=== PATIENT | female | born 1990 | race Caucasian/White ===

== ENCOUNTER 2020-08-08 10:26 | Emergency (ER) | payer OTHER, SELFPAY ==
--- NOTE | 2020-08-08 | US_ITS ---
EXAMINATION: OB ULTRASOUND CLINICAL INFORMATION: Abnormal vaginal bleeding COMPARISON: None recent TECHNIQUE: OB ultrasound FINDINGS: Last menstrual period is not known. I am not aware of beta-hCG levels at this time. No intrauterine gestational or yolk sacs are evident. No pole is seen. Right adnexa: Right ovary measures approximately 3.7 x 1.4 x 2.0 cm in size with normal vascular flow. Just adjacent along the medial aspect of the right ovary there is an ovoid structure with cystic central region measuring 1 x 1 x 1.1 cm in size. No increased vascularity/ring of fire is appreciated however with no intrauterine identified there is a small chance this could represent an ectopic and close follow-up is recommended. Left adnexa: Left ovary measures 2.8 x 2.0 x 2.4 cm in size and contains a 1.5 x 1.2 x 1.4 cm cyst. Normal vascular flow is present. No abnormal mass. There is a small amount of free fluid seen within the cul-de-sac. The uterus measures approximately 7.6 x 4.7 x 4.5 cm in size with endometrial stripe measuring 6 mm in diameter. US/US OB transvaginal IMPRESSION: No intrauterine gestation identified. 1.1 x 1 cm ovoid structure seen medial aspect of the right ovary however no renal fire/increased vascularity around this is identified unless this is less likely to represent an ectopic however close clinical and imaging follow-up is recommended.
[2020-08-08 10:36] VITALS: PULSE 67; RESP 16; TEMP 36.9; O2SAT 100; BMI 28.3
--- NOTE | 2020-08-08 10:50 | US_ITS ---
EXAMINATION: OB ULTRASOUND CLINICAL INFORMATION: Abnormal vaginal bleeding COMPARISON: None recent TECHNIQUE: OB ultrasound FINDINGS: Last menstrual period is not known. I am not aware of beta-hCG levels at this time. No intrauterine gestational or yolk sacs are evident. No pole is seen. Right adnexa: Right ovary measures approximately 3.7 x 1.4 x 2.0 cm in size with normal vascular flow. Just adjacent along the medial aspect of the right ovary there is an ovoid structure with cystic central region measuring 1 x 1 x 1.1 cm in size. No increased vascularity/ring of fire is appreciated however with no intrauterine identified there is a small chance this could represent an ectopic and close follow-up is recommended. Left adnexa: Left ovary measures 2.8 x 2.0 x 2.4 cm in size and contains a 1.5 x 1.2 x 1.4 cm cyst. Normal vascular flow is present. No abnormal mass. There is a small amount of free fluid seen within the cul-de-sac. The uterus measures approximately 7.6 x 4.7 x 4.5 cm in size with endometrial stripe measuring 6 mm in diameter. US/US OB <= 14 weeks fetus IMPRESSION: No intrauterine gestation identified. 1.1 x 1 cm ovoid structure seen medial aspect of the right ovary however no renal fire/increased vascularity around this is identified unless this is less likely to represent an ectopic however close clinical and imaging follow-up is recommended.
--- NOTE | 2020-08-08 11:03 | ED.FEMALEGU ---
HPI - Female Genitourinary General Chief complaint: Vaginal Bleeding Stated complaint: VAGINAL BLEEDING X 14 DAYS Time Seen by Provider: 08/08/20 10:41 Source: patient Mode of arrival: ambulatory Limitations: no limitations History of Present Illness HPI Narrative: 30yoF c No Sig PMHx presenting to the ED c c/o vaginal bleeding when she wipes and when she urinates for 14 days. With mild suprapubic left lower quadrant abdominal pain. Denies any fevers, nausea/ vomiting, back pain, dysuria, abnormal vaginal discharge or any other symptoms complaints or concerns at this time. Denies thoughts of STDs. Reports she has had 2 prior pregnancies in the past no complications vaginal delivery and they are both alive. No abortions or miscarriages in the past. Related Data Home Medications Medication Instructions Recorded Confirmed No Known Home Meds 08/08/20 08/08/20 Allergies Allergy/AdvReac Type Severity Reaction Status Date / Time No Known Allergies Allergy Unverified 05/28/20 16:03 Review of Systems Review of Systems: Constitutional : No Fever, No Chills ENT/Mouth : No sore throat, No Rhinorrhea Eyes: No Eye Pain, No Redness Cardiovascular : No Chest Pain, No SOB Respiratory : No Cough, No Sputum, No Wheezing Gastrointestinal : No Nausea, No Vomiting, No Diarrhea, + abdominal pain, Genitourinary : + irregular bleeding, No Dysuria, No Urinary Frequency, No pelvic pain Musculoskeletal : No Myalgias Skin : No rash Neuro : No Weakness, No Headache Psych : No Anxiety/Panic, No Depression Heme/Lymph: No bruising, No Lymphadenopathy Endocrine : No Polyuria, No Polydipsia Yes all other systems are reviewed and are negative [facility] Past Medical History Attestation statement: The following information was validated with the patient. Medical History No known health problems Social History Social History Alcohol intake: never Smoked in Last 30 Days: No Use of substances other than those prescribed or required for medical reasons: No Advance Directives: No Advance Directives Information Provided: No Physical Exam Vital Signs: Vital Signs: Last Vital Signs Temp 98.4 F 08/08/20 10:36 Pulse 67 08/08/20 10:36 Resp 16 08/08/20 10:36 Pulse Ox 100 08/08/20 10:36 Body Mass Index 28.3 vital signs have been reviewed as normal and appeared to be correct. Blood pressure normal. Heart rate normal. Respiration rate normal. Temperature normal. Oxygen saturation normal. Appearance: Alert. Oriented X3. No acute distress. Head: Normal external exam. Normocephalic. Atraumatic. Eyes: PERRLA. EOMI. Conjunctiva and sclera normal. Eyelids normal. ENT: Pharynx normal. Uvula midline. Moist mucous membranes. Neck: Normal inspection. Neck supple. FROM. No adenopathy. Thyroid Normal. No meningeal signs. CVS: Normal heart rate and rhythm. Heart sound normal. No murmurs noted. Pulses normal throughout. Respiratory: No respiratory distress. Painless inspiration. Breath sounds normal. No wheezes/rales/rhonchi noted. Chest nontender. No accessory muscle usage noted or decreased air movement noted. Abdomen: Soft and mild ttp of Left lower quadrant / suprapubic area. No rebound tenderness/rigidity or guarding noted. Bowel sounds normal in all 4 quadrants. No distention noted. No organomegaly noted. No visible injury noted. : SPECULUM EXAM PERFORMED BY AND DANIEL AZAR AT BEDSIDE. NORMAL EXTERNAL APPEARANCE. NO EXTERNAL TENDERNESS / SWELLING / LESION//LACERATIONS OR DISCHARGE NOTED. SPECULUM EXAM NORMAL APPEARANCE OF THE VAGINA NORMAL PALPATION. mild brown colored vaginal discharge. No active bleeding. Cervical os is closed. Bimanual exam within normal limits. Uterine size normal. Bladder normal to palpation. Uterine consistency normal. Normal cervix palpation. Uterine mobility normal. Uterine shape normal. No cervical motion tenderness. Uterus nontender. Back: No CVA tenderness. Full range of motion noted. Skin: Skin warm and dry. Normal skin color. Normal skin turgor. No rashes/lesions/lacerations noted. Extremities: No lower extremity edema. Extremities exhibit normal range of motion. Extremities nontender. Neuro: Oriented X 3. No motor deficit. No sensory deficit. Reflexes normal. Course Course Course Narrative: 10:50AM - 30yoF c No Sig PMHx presenting to the ED c c/o vaginal bleeding when she wipes and when she urinates for 14 days. With mild suprapubic left lower quadrant abdominal pain. - Concern for DUB vs vs STD. - Plan: Labs, Ultrasound, cultures for gonorrhea / chlamydia/ Trichomonas/bacterial vaginosis and yeast then re-evaluate. Reevaluation(s) Reevaluation #1: Patient had a positive therefore serum quant ordered and revealed 1812. patient also positive for BV and Trichomonas. First trimester ultrasound no intrauterine gestation identified there were noted to see a 1 x 1 oval structured the right ovary although no renal fire/increased vascularity around this therefore unsure if this is ectopic therefore consulted with OBGYN Dr. eVga. who recommended testing the patient for HIV/hepatitis B/ hepatitis C and to treat the patient with 2 g of p.o. Flagyl at this time. He came in to examine the patient and gave the options of methotrexate although patient refused and requested to have a repeat serum quant in 48 hours and to follow up with Dr. Vega in office. Therefore I gave the patient an outpatient slip for serum quant to return in 2 days and to follow-up with doctors Ohri. Patient understands agrees with this plan. Patient is AB positive for blood type. Therefore RhoGAM not indicated at this time. Time: 14:38 MDM - Female Genitourinary Medical Records Attestation: I reviewed the patient's medical records. Lab Data Attestation: I reviewed the patient's lab results. Result diagrams: 08/08/20 11:15 08/08/20 11:15 Labs: Lab Results 08/08/20 08/08/20 08/08/20 Range/Units 10:57 10:58 10:58 WBC (4.8-10.8) X10*3/uL RBC (4.20-5.50) X10*6/uL Hgb (12.0-16.0) g/dl Hct (37-47) % MCV (80-98) fL MCH (27.0-33.0) pg MCHC (31.0-35.0) g/dl RDW (11.0-16.0) % Plt Count (160-400) X10*3/uL MPV (9.4-12.3) fL Immature Gran % (Auto) (0.0-0.4) % Neut % (Auto) (45-73) % Lymph % (Auto) (20-40) % [place] % (Auto) (2-11) % Eos % (Auto) (0-4) % Baso % (Auto) (0-2) % Lymph # (Auto) (1.2-4.9) X10*3/uL [place] # (Auto) (0.1-1.2) X10*3/uL Eos # (Auto) (0.0-0.4) X10*3/uL Baso # (Auto) (0.0-0.2) X10*3/uL Abs Immat Gran (auto) (0.00-0.03) X10*3/uL Absolute Neuts (auto) (2.0-8.3) X10*3/uL Absolute Nucleated RBC (0.0-0.012) X10*3/uL Nucleated RBC % (auto) (0.0-0.2) /100WBC PT (10.8-13.0) SEC INR (0.9-1.1) Sodium (135-145) mmol/L Potassium (3.3-5.1) mmol/l Chloride (96-108) mmol/L Carbon Dioxide (22-29) mmol/L Anion Gap (12-20) BUN (9-16) mg/dL Creatinine (0.5-1.4) mg/dL Estim Creat Clear Calc Estimated GFR Random Glucose (60-115) mg/dL Calcium (8.4-10.2) mg/dL Magnesium (1.6-2.6) mg/dL Total Bilirubin (0.0-1.0) mg/dL Direct Bilirubin (0.0-0.5) mg/dL AST (5-31) U/L ALT (0-31) U/L Alkaline Phosphatase (39-117) U/L Total Protein (6.5-8.0) g/dL Albumin (3.5-5.0) g/dL Beta HCG, Quant mIU/mL Urine Color YELLOW Urine Appearance CLEAR Urine pH 8.5 H (5.0-8.0) Ur Specific [place] 1.020 (1.005-1.025) Urine Protein NEG (NEG-TRACE) MG/DL Urine Glucose (UA) NEG (NEG) MG/DL Urine Ketones NEG (NEG) MG/DL Urine Blood 1+ H (NEG) Urine Nitrite NEG (NEG) Ur Leukocyte Esterase NEG (NEG) Urine RBC 1-4 (0) /HPF Urine WBC 0 (0-4) /HPF Ur Squamous Epith Cells TRACE /LPF Urine Bacteria NONE /LPF Urine Trichomonas NOTED Urine Test POSITIVE H (NEGATIVE) Mireya species DNA Negative (Negative) Chlam trachomat DNA PCR NOT DETECTED (Not Detect.) Gardnerella DNA Probe Positive A (Negative) N.gonorrhoeae DNA (PCR) NOT DETECTED (Not Detect.) Trichomonas DNA Probe Positive A (Negative) Blood Type 08/08/20 08/08/20 08/08/20 Range/Units 11:15 11:15 11:15 WBC 7.1 (4.8-10.8) X10*3/uL RBC 4.63 (4.20-5.50) X10*6/uL Hgb 13.8 (12.0-16.0) g/dl Hct 41.3 (37-47) % MCV 89.2 (80-98) fL MCH 29.8 (27.0-33.0) pg MCHC 33.4 (31.0-35.0) g/dl RDW 13.0 (11.0-16.0) % Plt Count 265 (160-400) X10*3/uL MPV 10.2 (9.4-12.3) fL Immature Gran % (Auto) 0.3 (0.0-0.4) % Neut % (Auto) 64.7 (45-73) % Lymph % (Auto) 26.8 (20-40) % [place] % (Auto) 6.2 (2-11) % Eos % (Auto) 1.4 (0-4) % Baso % (Auto) 0.6 (0-2) % Lymph # (Auto) 1.9 (1.2-4.9) X10*3/uL [place] # (Auto) 0.4 (0.1-1.2) X10*3/uL Eos # (Auto) 0.1 (0.0-0.4) X10*3/uL Baso # (Auto) 0.0 (0.0-0.2) X10*3/uL Abs Immat Gran (auto) 0.02 (0.00-0.03) X10*3/uL Absolute Neuts (auto) 4.6 (2.0-8.3) X10*3/uL Absolute Nucleated RBC 0.000 (0.0-0.012) X10*3/uL Nucleated RBC % (auto) 0.0 (0.0-0.2) /100WBC PT 11.4 (10.8-13.0) SEC INR 1.0 (0.9-1.1) Sodium 137 (135-145) mmol/L Potassium 4.2 (3.3-5.1) mmol/l Chloride 105 (96-108) mmol/L Carbon Dioxide 24 (22-29) mmol/L Anion Gap 12 (12-20) BUN 10 (9-16) mg/dL Creatinine 0.70 (0.5-1.4) mg/dL Estim Creat Clear Calc 113.1 Estimated GFR > 60 Random Glucose 90 (60-115) mg/dL Calcium 8.6 (8.4-10.2) mg/dL Magnesium 2.1 (1.6-2.6) mg/dL Total Bilirubin 0.4 (0.0-1.0) mg/dL Direct Bilirubin 0.2 (0.0-0.5) mg/dL AST 14 (5-31) U/L ALT 9 (0-31) U/L Alkaline Phosphatase 46 (39-117) U/L Total Protein 6.7 (6.5-8.0) g/dL Albumin 4.4 (3.5-5.0) g/dL Beta HCG, Quant 1812 mIU/mL Urine Color Urine Appearance Urine pH (5.0-8.0) Ur Specific [place] (1.005-1.025) Urine Protein (NEG-TRACE) MG/DL Urine Glucose (UA) (NEG) MG/DL Urine Ketones (NEG) MG/DL Urine Blood (NEG) Urine Nitrite (NEG) Ur Leukocyte Esterase (NEG) Urine RBC (0) /HPF Urine WBC (0-4) /HPF Ur Squamous Epith Cells /LPF Urine Bacteria /LPF Urine Trichomonas Urine Test (NEGATIVE) Mireya species DNA (Negative) Chlam trachomat DNA PCR (Not Detect.) Gardnerella DNA Probe (Negative) N.gonorrhoeae DNA (PCR) (Not Detect.) Trichomonas DNA Probe (Negative) Blood Type 08/08/20 Range/Units 13:00 WBC (4.8-10.8) X10*3/uL RBC (4.20-5.50) X10*6/uL Hgb (12.0-16.0) g/dl Hct (37-47) % MCV (80-98) fL MCH (27.0-33.0) pg MCHC (31.0-35.0) g/dl RDW (11.0-16.0) % Plt Count (160-400) X10*3/uL MPV (9.4-12.3) fL Immature Gran % (Auto) (0.0-0.4) % Neut % (Auto) (45-73) % Lymph % (Auto) (20-40) % [place] % (Auto) (2-11) % Eos % (Auto) (0-4) % Baso % (Auto) (0-2) % Lymph # (Auto) (1.2-4.9) X10*3/uL [place] # (Auto) (0.1-1.2) X10*3/uL Eos # (Auto) (0.0-0.4) X10*3/uL Baso # (Auto) (0.0-0.2) X10*3/uL Abs Immat Gran (auto) (0.00-0.03) X10*3/uL Absolute Neuts (auto) (2.0-8.3) X10*3/uL Absolute Nucleated RBC (0.0-0.012) X10*3/uL Nucleated RBC % (auto) (0.0-0.2) /100WBC PT (10.8-13.0) SEC INR (0.9-1.1) Sodium (135-145) mmol/L Potassium (3.3-5.1) mmol/l Chloride (96-108) mmol/L Carbon Dioxide (22-29) mmol/L Anion Gap (12-20) BUN (9-16) mg/dL Creatinine (0.5-1.4) mg/dL Estim Creat Clear Calc Estimated GFR Random Glucose (60-115) mg/dL Calcium (8.4-10.2) mg/dL Magnesium (1.6-2.6) mg/dL Total Bilirubin (0.0-1.0) mg/dL Direct Bilirubin (0.0-0.5) mg/dL AST (5-31) U/L ALT (0-31) U/L Alkaline Phosphatase (39-117) U/L Total Protein (6.5-8.0) g/dL Albumin (3.5-5.0) g/dL Beta HCG, Quant mIU/mL Urine Color Urine Appearance Urine pH (5.0-8.0) Ur Specific [place] (1.005-1.025) Urine Protein (NEG-TRACE) MG/DL Urine Glucose (UA) (NEG) MG/DL Urine Ketones (NEG) MG/DL Urine Blood (NEG) Urine Nitrite (NEG) Ur Leukocyte Esterase (NEG) Urine RBC (0) /HPF Urine WBC (0-4) /HPF Ur Squamous Epith Cells /LPF Urine Bacteria /LPF Urine Trichomonas Urine Test (NEGATIVE) Mireya species DNA (Negative) Chlam trachomat DNA PCR (Not Detect.) Gardnerella DNA Probe (Negative) N.gonorrhoeae DNA (PCR) (Not Detect.) Trichomonas DNA Probe (Negative) Blood Type AB Positive Imaging Data First trimester ultrasound: Attestation: I personally reviewed and interpreted this imaging study as follows: Radiologist's impression: IMPRESSION: No intrauterine gestation identified. 1.1 x 1 cm ovoid structure seen medial aspect of the right ovary however no renal fire/increased vascularity around this is identified unless this is less likely to represent an ectopic however close clinical and imaging follow-up is recommended. Discharge Plan Discharge Clinical Impression: Threatened , Trichomonas infection Qualifiers: Weeks of gestation: unspecified Qualified Code(s): Z34.90 - Encounter for supervision of normal , unspecified, unspecified trimester Ectopic Qualifiers: Location of ectopic : unspecified location Intrauterine status: unspecified Qualified Code(s): O00.90 - Unspecified ectopic without intrauterine Patient Disposition: Home, Self-Care Instructions: Ectopic (DC), Threatened Miscarriage (ED), (ED), Trichomoniasis (ED) Additional Instructions: you were seen by the counseling services manager Dr. Vega who reports that this could possibly be an early versus a threatened / miscarriage versus ectopic . We are giving you an outpatient lab slip order for a serum quant in 48 hours and to follow up with doctors Dr. Vega. Return if any new or worsening symptoms including fevers, abdominal pain or vaginal bleeding. You have pending lab results if any are positive you will be contacted. Prescriptions: No Action No Known Home Meds RF: 0 Referrals: Teodoro Vega MD [Physician] - 2 days Stand Alone Forms: Work/School Release Interventions: ED Discharge Assessment Last Done: 08/08/20 14:31 Discharge Date/Time: 08/08/20 14:35 Print Language: Ukrainian
[2020-08-08 11:08] LABS: Glucose Urine UA NEG (NEG); Leukocyte Esterase Urine NEG (NEG); Nitrite Urine NEG (NEG); PH 8.5 (5.0-8.0); Urine Blood 1+ (NEG); Urine Ketones NEG (NEG); Urine Protein NEG (NEG-TRACE)
[2020-08-08 11:11] LABS: Appearance Urine CLEAR; Color Urine YELLOW
[2020-08-08 11:12] LABS: UPreg QC Valid YES; Urine Pregnancy POSITIVE (NEGATIVE)
[2020-08-08 11:21] LABS: Squamous Epithelial Cell Urine TRACE /LPF; Trichomonas Urine NOTED; WBC Urine 0 /HPF (0-4)
[2020-08-08 11:22] LABS: MANUAL DIFF FLAG NO
[2020-08-08 11:23] LABS: Basophils Percent Auto 0.6 % (0-2); Eosinophils Absolute Auto 0.1 X10*3/uL (0.0-0.4); Eosinophils Percent Auto 1.4 % (0-4); Hematocrit 41.3 % (37-47); Hemoglobin 13.8 g/dl (12.0-16.0); Imm Gran Abs Auto 0.02 X10*3/uL (0.00-0.03); Imm Gran Pct Auto 0.3 % (0.0-0.4); Lymphocytes Absolute Auto 1.9 X10*3/uL (1.2-4.9); Lymphocytes Percent Auto 26.8 % (20-40); Mean Corpuscular HGB Conc 33.4 g/dl (31.0-35.0); Mean Corpuscular Hemoglobin 29.8 pg (27.0-33.0); Mean Corpuscular Volume 89.2 fL (80-98); Mean Platelet Volume 10.2 fL (9.4-12.3); Monocytes Absolute Auto 0.4 X10*3/uL (0.1-1.2); Monocytes Percent Auto 6.2 % (2-11); Neutrophils Absolute Auto 4.6 X10*3/uL (2.0-8.3); Neutrophils Percent Auto 64.7 % (45-73); Platelet Count 265 X10*3/uL (160-400); Red Blood Count 4.63 X10*6/uL (4.20-5.50); White Blood Count 7.1 X10*3/uL (4.8-10.8)
[2020-08-08 11:35] LABS: Prothrombin Time 11.4 SEC (10.8-13.0)
[2020-08-08 11:48] LABS: Alanine Aminotransferase 9 U/L (0-31); Albumin Level 4.4 g/dL (3.5-5.0); Alkaline Phosphatase 46 U/L (39-117); Anion Gap 12 (12-20); Aspartate Amino Transferase 14 U/L (5-31); Bilirubin Direct 0.2 mg/dL (0.0-0.5); Bilirubin Total 0.4 mg/dL (0.0-1.0); Blood Urea Nitrogen 10 mg/dL (9-16); Calcium 8.6 mg/dL (8.4-10.2); Carbon Dioxide 24 mmol/L (22-29); Chloride 105 mmol/L (96-108); Creatinine Clr Calc Pharmacy 113.1; Estimated Glomerular Filt Rate > 60; Glucose Random 90 mg/dL (60-115); Magnesium 2.1 mg/dL (1.6-2.6); Potassium 4.2 mmol/l (3.3-5.1); Sodium 137 mmol/L (135-145); Total Protein 6.7 g/dL (6.5-8.0)
[2020-08-08 12:06] LABS: BV Int Neg Control Negative (Negative); BV Int Pos Control Positive (Positive)
[2020-08-08 12:38] LABS: HCG Quantitative 1812 mIU/mL
[2020-08-08 12:40] LABS: CT PCR NOT DETECTED (Not Detect.); NG PCR NOT DETECTED (Not Detect.)
[2020-08-08] MEDS: metroNIDAZOLE 500 MG TABLET 2000 MG PO (13:50)
--- NOTE | 2020-08-08 14:47 | PM.GYNCN ---
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 Last menstrual period was July 28. This was her regular menses. Patient did not miss her menstrual cycle last month, no abdominal pain no nausea or vomiting no other complaints. Patient is not on any type of control and is not having any vaginal discharge. cc:: CC: Meds Allergies Allergy/AdvReac Type Severity Reaction Status Date / Time No Known Allergies Allergy Unverified 05/28/20 16:03 Home Medications Medication Instructions Recorded Confirmed Type No Known Home Meds 08/08/20 08/08/20 History BOOKSTORE MANAGER - Results Labs CBC & Chem 7: 08/08/20 11:15 08/08/20 11:15 Labs: Short CBC 08/08/20 Range/Units 11:15 WBC 7.1 (4.8-10.8) X10*3/uL Hgb 13.8 (12.0-16.0) g/dl Hct 41.3 (37-47) % Plt Count 265 (160-400) X10*3/uL BMP 08/08/20 11:15 Sodium 137 Potassium 4.2 Chloride 105 Carbon Dioxide 24 BUN 10 Creatinine 0.70 Calcium 8.6 Liver Function 08/08/20 Range/Units 11:15 Total Bilirubin 0.4 (0.0-1.0) mg/dL Direct Bilirubin 0.2 (0.0-0.5) mg/dL AST 14 (5-31) U/L ALT 9 (0-31) U/L Alkaline Phosphatase 46 (39-117) U/L Albumin 4.4 (3.5-5.0) g/dL Urine 08/08/20 Range/Units 10:57 Urine Color YELLOW Urine Appearance CLEAR Urine pH 8.5 H (5.0-8.0) Ur Specific [place] 1.020 (1.005-1.025) Urine Protein NEG (NEG-TRACE) MG/DL Urine Glucose (UA) NEG (NEG) MG/DL Urine Test POSITIVE H (NEGATIVE) Assessment and Plan (1) : Qualifiers: Weeks of gestation: unspecified Qualified Code(s): Z34.90 - Encounter for supervision of normal , unspecified, unspecified trimester Problem details: Possible early IUP, threatened AB, ectopic Status: Acute Discussed with the patient the findings on ultrasound 1.1 cm mass in the right ovary possibly suspicious for ectopic with no evidence of intrauterine , also discussed the patient the? hCG? level? is not diagnostic with single value although? the level is below 3500,? if the hCG level was above? the discriminatory zone ,? absence of intrauterine ? by ultrasound would have been is very highly diagnosis of ectopic ,? discussed with the patient the possible differential diagnosis includes? but not limited to early intrauterine ,? threatened AB, ectopic . Discussed with the patient treatment options including the following observation repeat HCG every 48 hours with warning signs of SAB versus ectopic,? the risk of this approach being delayed diagnosis of ectopic and risk of intrauterine rupture and abdominal bleed was all its possible complications. Option 2.? being methotrexate treatment ; All the pros and cons risks and benefits of each approach were discussed with the patient including but not limited to, failure rate of MTX ~15%, possible exposure of methotrexate teratogenicity to an early intrauterine not diagnosed by ultrasound with the risk of SAB and severe deformities, possibility of a early intrauterine (since HCG level is very low). Patient desires? expected management?Instructions given to the patient to repeat hCG in 48 hours? and follow-up in the office in 48 hours for an evaluation, office phone number were given to the patient she is to call for appointment; signs and symptoms of spontaneous ? and ectopic were given to patient she is to call? or go to the emergency room if any of the following occurs, abdominal pain nausea and vomiting vaginal bleeding . All questions were answered pt verbalized understanding. Blood type is AB positive no need for RhoGAM. [id number] visit 30 minutes more than 50% of time was spent counseling and/or coordinating care. (2) Trichomonas infection: Status: Acute Flagyl 2 g p.o. x1 GC and chlamydia taken negative, STD screening including hep B surface antigen, hepatitis-C antibody, HIV, RPR sent. In from the patient to inform her partner to be treated, refrain from intercourse for 7 days after both are treated, repeat serology in 6 months because of the false negative rate and test of cure in 1-2 weeks
[2020-08-10 04:20] LABS: Syphilis Screen Nonreactive (Nonreactive)
[2020-08-10 04:30] LABS: HBsAGNum1 0.19 S/CO (0.00-0.99); HIV AB/AG Nonreactive (Nonreactive); HIV Num 1 0.13 S/CO (0.00-0.99); Hepatitis B Surface Antigen Negative (Negative); ~HepC Num1 0.12 S/CO (0.00-0.79); ~Hepatitis C Antibody Nonreactive (Nonreactive)
== END 2020-08-08 14:35 | disposition home or self-care (01) ==
PROVIDERS: Physician Assistant Medical; Emergency Provider Internal Medicine; PCP Internal Medicine
DX: O20.0 Threatened abortion (principal); A59.9 Trichomoniasis, unspecified; R10.32 Left lower quadrant pain; Z3A.00 Weeks of gestation of pregnancy not specified
CPT/HCPCS: 36415; 76801; 76817; 80048; 80076; 81001; 81025; 83735; 84702; 85025; 85610; 86780; 86803; 86900; 86901; 87340; 87389; 87480; 87491; 87510; 87591; 87660; 99283; 99284

== ENCOUNTER 2020-08-09 18:56 | Emergency (ER) | payer OTHER, SELFPAY ==
[2020-08-09 19:11] VITALS: BP 121/67; PULSE 86; RESP 20; TEMP 37; O2SAT 100; BMI 28.3
--- NOTE | 2020-08-09 19:22 | ED.PREGNANCY ---
HPI - General Chief complaint: Abdominal Pain Stated complaint: ? ETOPIC Time Seen by Provider: 08/09/20 19:20 Source: patient Mode of arrival: ambulatory Limitations: no limitations History of Present Illness HPI Narrative: 30-year-old female presents with suspicion of ectopic . She was evaluated here in the emergency department last night with a positive test and is suspicious for ectopic . Today she presents because the pain is 10/10 and now in the right lower quadrant. MD Complaint: abdominal pain Onset (ago): day(s) Pain Consistency: constant Location: other ( Right lower quadrant) Severity: severe Severity scale (1-10): 10 Quality: Stabbing Radiation: abdomen Relieving factors: none Exacerbating factors: movement Vaginal discharge: none Vaginal bleeding: light Patient : Yes Related Data Previous Rx's Medication Instructions Recorded ibuprofen 600 mg PO Q8H PRN #30 tab 08/10/20 oxycodone 5 mg PO Q4H PRN 7 Days #20 cap 08/10/20 Allergies Allergy/AdvReac Type Severity Reaction Status Date / Time No Known Allergies Allergy Verified 08/09/20 19:13 Review of Systems Review of Systems: Constitutional: No Weight loss, No Fever, No Chills, No Night Sweats, No Fatigue, No Malaise ENT/Mouth: No Hearing loss, No Ear Pain, No Nasal Congestion, No Sinus Pain, No Hoarseness, No sore throat, No Rhinorrhea, No Swallowing Difficulty Eyes: No Eye Pain, No Swelling, No Redness, No Foreign Body, No Discharge, No Vision Changes Cardiovascular: No Chest Pain, No SOB, No Dyspnea on Exertion, No Orthopnea, No Edema, No Palpitations Respiratory: No Cough, No Sputum, No Wheezing, No Smoke Exposure, No Dyspnea Gastrointestinal: no Nausea, no Vomiting, darya Diarrhea, positive abdominal Pain, positive No Hematochezia, No Melena Genitourinary: no irregular bleeding, No Dysuria, No Urinary Frequency, No Hematuria, No Urinary Incontinence, No Urgency, No Flank Pain, No Urinary Flow Changes, No Hesitancy Musculoskeletal: No joint pain, No Myalgias, No Joint Swelling Skin: No Skin Lesions, No rash Neuro: No Weakness, No Numbness, No Paresthesias, No Loss of Consciousness, No Dizziness, No Headache Psych: No Anxiety/Panic, No Depression, No SI/HI/AH/VH, No Social Issues Heme/Lymph: No Bruising, No Bleeding,No Lymphadenopathy Endocrine: No Polyuria, No Polydipsia, No Temperature Intolerance Yes all other systems are reviewed and are negative [facility] Past Medical History Attestation statement: The following information was validated with the patient. Medical History No known health problems Social History Social History Alcohol intake: never Smoking Status: Never smoker Use of substances other than those prescribed or required for medical reasons: No Advance Directives: No Physical Exam Vital Signs: Vital Signs: Last Vital Signs Temp 97.5 F 08/10/20 00:39 Pulse 73 08/10/20 01:59 Resp 20 08/10/20 01:59 BP 113/55 L 08/10/20 01:59 Pulse Ox 100 08/10/20 01:59 Body Mass Index 28.3 Appearance: Alert. Oriented X3. moderate distress. Eyes: Pupils equal, round and reactive to light. ENT: Pharynx normal. Neck: Normal inspection. Neck supple. CVS: Normal heart rate and rhythm. Pulses normal. Respiratory: No respiratory distress. Breath sounds normal. Abdomen: Soft and tender to palpation with rebound and guarding. Skin: Skin warm and dry. Normal skin color. Normal skin turgor. Extremities: No lower extremity edema. Neuro: No motor deficit. No sensory deficit. Course Course Course Narrative: 30-year-old presents with right lower quadrant pain with suspected ectopic . Was seen yesterday at this facility and did have a consult with Ob on-call Dr Vega. patient states that nobody did anything for her while she was here however on review of records a complete lab workup, pelvic ultrasound, hCG level, as well as a consult with Dr. Vega at bedside. Ultrasound shows a 1.1 x 1 cm ovoid structure seen medial aspect of the right ovary however no renal fire/increased vascularity around this is identified unless this is less likely to represent an ectopic however close clinical and imaging follow-up is recommended. after discussion with Dr Vega, plan is for repeat pelvic ultrasound, hCG, CBC, Chem [address] Vega bedside At 9:00 p.m.. Plan is for laparoscopic surgery for suspected ruptured ectopic. Consultations Consultation #1: Gary Time: 19:23 MDM - OB/Uterine Contractions MDM Narrative Medical decision making narrative: ectopic Medical Records Attestation: I reviewed the patient's medical records. Lab Data Attestation: I reviewed the patient's lab results. Result diagrams: 08/09/20 19:31 08/09/20 19:31 Labs: Lab Results 08/09/20 08/09/20 08/09/20 Range/Units 19:31 19:31 21:45 WBC 8.5 (4.8-10.8) X10*3/uL RBC 4.22 (4.20-5.50) X10*6/uL Hgb 12.6 (12.0-16.0) g/dl Hct 37.3 (37-47) % MCV 88.4 (80-98) fL MCH 29.9 (27.0-33.0) pg MCHC 33.8 (31.0-35.0) g/dl RDW 12.8 (11.0-16.0) % Plt Count 285 (160-400) X10*3/uL MPV 10.3 (9.4-12.3) fL Immature Gran % (Auto) 0.4 (0.0-0.4) % Neut % (Auto) 61.9 (45-73) % Lymph % (Auto) 28.3 (20-40) % Schuyler % (Auto) 7.9 (2-11) % Eos % (Auto) 1.1 (0-4) % Baso % (Auto) 0.4 (0-2) % Lymph # (Auto) 2.4 (1.2-4.9) X10*3/uL Schuyler # (Auto) 0.7 (0.1-1.2) X10*3/uL Eos # (Auto) 0.1 (0.0-0.4) X10*3/uL Baso # (Auto) 0.0 (0.0-0.2) X10*3/uL Abs Immat Gran (auto) 0.03 (0.00-0.03) X10*3/uL Absolute Neuts (auto) 5.3 (2.0-8.3) X10*3/uL Absolute Nucleated RBC 0.000 (0.0-0.012) X10*3/uL Nucleated RBC % (auto) 0.0 (0.0-0.2) /100WBC Sodium 137 (135-145) mmol/L Potassium 3.9 (3.3-5.1) mmol/l Chloride 104 (96-108) mmol/L Carbon Dioxide 24 (22-29) mmol/L Anion Gap 13 (12-20) BUN 12 (9-16) mg/dL Creatinine 0.72 (0.5-1.4) mg/dL Estim Creat Clear Calc 110.0 Estimated GFR > 60 Random Glucose 66 (60-115) mg/dL Calcium 8.3 L (8.4-10.2) mg/dL Beta HCG, Quant 2331 mIU/mL Blood Type AB Positive Antibody Screen NEGATIVE Imaging Data pelvic ultrasound: Attestation: I personally reviewed and interpreted this imaging study as follows: Radiologist's impression: EXAMINATION:US OB <= 14 weeks fetus, US OB transvaginal CLINICAL INFORMATION: Reason for Exam ? rupture COMPARISON: No priors available. LMP: 08/08/2020 FINDINGS: UTERUS: The uterus is anteverted. Size: 4.5 x 5.8 x 8.8 cm. Uterine mass: There is no uterine mass. Cervix: Grossly unremarkable. Endometrium: No ultrasound evidence of endometrial lesion. endometrial thickness measures 0.6 cm no gestational sac found within the endometrium. ADNEXA: Normal Right ovary: There is a fluid-filled structure in the right ovary 2.3 x 1.4 cm with peripheral echogenic rim, in the absence of intrauterine uterine gestational sac this is worrisome for possible ectopic . No pole or heart found. Left ovary: Normal in size. FREE FLUID: Trace amount of free fluid. OTHER FINDINGS: None US/US OB <= 14 weeks fetus IMPRESSION: No intrauterine gestational sac. Endometrium is closed normal thickness 6 mm. There is 2.3 cm cystic structure in the right ovary with peripheral echogenic rim, in the absence of intrauterine uterine gestational sac, this is concerning for POSSIBLE ECTOPIC . This critical result was discussed with Dr. Crook by telephone at 08/09/2020 9:28 PM and it was ascertained that the content and urgency of the report was understood at the time of direct communication. Critical Care Time Critical Care Time Critical Care Time: Yes Total Critical Care Time: 60 Attestation: I have personally provided critical care time exclusive of time spent on separately billable procedures. Time includes review of laboratory data, radiology results, discussion with consultants, and monitoring for potential decompensation. Interventions were performed as documented. Discharge Plan Discharge Clinical Impression: Ectopic Patient Disposition: Admitted As Inpatient Additional Instructions: lenol 650 mg every 6 hours as need. HCG quatitative in 2 days with telehealth visist afterwrads Follow up in the office in 2 weeks. Prescriptions: New oxycodone 5 mg capsule 5 mg PO Q4H PRN (Reason: pain) 7 Days Qty: 20 RF: 0 ibuprofen 600 mg tablet 600 mg PO Q8H PRN (Reason: pain) Qty: 30 RF: 0 Referrals: Bhavana Morrow MD [Primary Care Provider] - 2 days Interventions: Admission Worksheet (ED) Last Done: 08/09/20 22:26
[2020-08-09 19:32] VITALS: RESP 20
[2020-08-09] MEDS: 0.9 % Sodium Chloride 1,000 ML 999 ML IVCONT ×2 (19:32→22:14)
[2020-08-09] MEDS: Morphine Sulfate 4 MG/ML CARTRIDGE IVPUSH (19:32)
[2020-08-09] MEDS: ondansetron HCL 4 MG/2 ML VIAL IVPUSH (19:32)
--- NOTE | 2020-08-09 19:32 | US_ITS ---
EXAMINATION:US OB <= 14 weeks fetus, US OB transvaginal CLINICAL INFORMATION: Reason for Exam ? rupture COMPARISON: No priors available. LMP: 08/08/2020 FINDINGS: UTERUS: The uterus is anteverted. Size: 4.5 x 5.8 x 8.8 cm. Uterine mass: There is no uterine mass. Cervix: Grossly unremarkable. Endometrium: No ultrasound evidence of endometrial lesion. endometrial thickness measures 0.6 cm no gestational sac found within the endometrium. ADNEXA: Normal Right ovary: There is a fluid-filled structure in the right ovary 2.3 x 1.4 cm with peripheral echogenic rim, in the absence of intrauterine uterine gestational sac this is worrisome for possible ectopic . No pole or heart found. Left ovary: Normal in size. FREE FLUID: Trace amount of free fluid. OTHER FINDINGS: None US/US OB transvaginal IMPRESSION: No intrauterine gestational sac. Endometrium is closed normal thickness 6 mm. There is 2.3 cm cystic structure in the right ovary with peripheral echogenic rim, in the absence of intrauterine uterine gestational sac, this is concerning for POSSIBLE ECTOPIC . This critical result was discussed with Dr. Crook by telephone at 08/09/2020 9:28 PM and it was ascertained that the content and urgency of the report was understood at the time of direct communication.
--- NOTE | 2020-08-09 19:32 | US_ITS ---
EXAMINATION:US OB <= 14 weeks fetus, US OB transvaginal CLINICAL INFORMATION: Reason for Exam ? rupture COMPARISON: No priors available. LMP: 08/08/2020 FINDINGS: UTERUS: The uterus is anteverted. Size: 4.5 x 5.8 x 8.8 cm. Uterine mass: There is no uterine mass. Cervix: Grossly unremarkable. Endometrium: No ultrasound evidence of endometrial lesion. endometrial thickness measures 0.6 cm no gestational sac found within the endometrium. ADNEXA: Normal Right ovary: There is a fluid-filled structure in the right ovary 2.3 x 1.4 cm with peripheral echogenic rim, in the absence of intrauterine uterine gestational sac this is worrisome for possible ectopic . No pole or heart found. Left ovary: Normal in size. FREE FLUID: Trace amount of free fluid. OTHER FINDINGS: None US/US OB <= 14 weeks fetus IMPRESSION: No intrauterine gestational sac. Endometrium is closed normal thickness 6 mm. There is 2.3 cm cystic structure in the right ovary with peripheral echogenic rim, in the absence of intrauterine uterine gestational sac, this is concerning for POSSIBLE ECTOPIC . This critical result was discussed with Dr. Crook by telephone at 08/09/2020 9:28 PM and it was ascertained that the content and urgency of the report was understood at the time of direct communication.
[2020-08-09 19:54] LABS: MANUAL DIFF FLAG NO
[2020-08-09 19:57] LABS: Basophils Percent Auto 0.4 % (0-2); Eosinophils Absolute Auto 0.1 X10*3/uL (0.0-0.4); Eosinophils Percent Auto 1.1 % (0-4); Hematocrit 37.3 % (37-47); Hemoglobin 12.6 g/dl (12.0-16.0); Imm Gran Abs Auto 0.03 X10*3/uL (0.00-0.03); Imm Gran Pct Auto 0.4 % (0.0-0.4); Lymphocytes Absolute Auto 2.4 X10*3/uL (1.2-4.9); Lymphocytes Percent Auto 28.3 % (20-40); Mean Corpuscular HGB Conc 33.8 g/dl (31.0-35.0); Mean Corpuscular Hemoglobin 29.9 pg (27.0-33.0); Mean Corpuscular Volume 88.4 fL (80-98); Mean Platelet Volume 10.3 fL (9.4-12.3); Monocytes Absolute Auto 0.7 X10*3/uL (0.1-1.2); Monocytes Percent Auto 7.9 % (2-11); Neutrophils Absolute Auto 5.3 X10*3/uL (2.0-8.3); Neutrophils Percent Auto 61.9 % (45-73); Platelet Count 285 X10*3/uL (160-400); Red Blood Count 4.22 X10*6/uL (4.20-5.50); Red Cell Distribution Width 12.8 % (11.0-16.0); White Blood Count 8.5 X10*3/uL (4.8-10.8)
[2020-08-09 20:13] LABS: Anion Gap 13 (12-20); Blood Urea Nitrogen 12 mg/dL (9-16); Calcium 8.3 mg/dL (8.4-10.2); Carbon Dioxide 24 mmol/L (22-29); Chloride 104 mmol/L (96-108); Estimated Glomerular Filt Rate > 60; Glucose Random 66 mg/dL (60-115); Potassium 3.9 mmol/l (3.3-5.1); Sodium 137 mmol/L (135-145)
[2020-08-09 20:43] LABS: HCG Quantitative 2331 mIU/mL
--- NOTE | 2020-08-09 21:28 | PM.GYNHP ---
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 Patient presented yesterday to the emergency room with left lower quadrant HCG was 1782, ultrasound was done showed no intrauterine and a right 1.1 cm circular structure with no vascularity. Patient was counseled regarding methotrexate treatment but declined and preferred to go ahead with expectant management. Warning signs for ectopic were given to the patient, the pain started 1 hour prior to presentation sever in nature so the patient came into the emergency room. Trichomonas was positive GC and Chlamydia negative. Th ept was Given 2 g of Flagyl po yesterday. On present patient the patient had severe right lower quadrant pain direct tenderness and guarding for Perlita CARSON in the emergency room, hCG repeated came back at 2332, ultrasound showed no evidence of intrauterine with a right structure measuring 2.3 x 1.1 cm suspicious of ectopic with peripheral vascularity APNS - Review of Systems Review of Systems ROS Unobtainable: All systems reviewed & are unremarkable except as noted in HPI and below OB PMFSH Past Medical History Medical History Asthma No known health problems Surgical History Surgical History History of salpingectomy History of tonsillectomy Social History Social History Alcohol intake: never Smoking Status: Never smoker Sexual orientation: Straight/Heterosexual Gender identity: female Meds Allergies Allergy/AdvReac Type Severity Reaction Status Date / Time No Known Allergies Allergy Verified 09/21/20 13:54 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 Physical Exam Vitals Vital signs: Temp Pulse Resp BP Pulse Ox 98.6 F 86 20 121/67 100 08/09/20 19:11 08/09/20 19:11 08/09/20 19:32 08/09/20 19:11 08/09/20 19:11 Body Mass Index 28.3 Constitutional General Appearance: Healthy appearing, Well-nourished and Well-developed Psychiatric Mood and Affect: active and alert, normal mood and normal affect Skin Appearance: No rashes and No lesions Lungs Respiratory Effort: No intercostal retractions Auscultation: Clear to auscultation Cardiovascular Auscultation: RRR Abdomen Auscultation/Inspection/Palpation: Normal bowel sounds, Tenderness (RLQ tenderness) and Guarding Female Genitalia (Pelvic) Exam: Deferred PAPER PRODUCTION ENGINEER - Results Labs CBC & Chem 7: 08/09/20 19:31 08/09/20 19:31 Labs: Short CBC 08/09/20 Range/Units 19:31 WBC 8.5 (4.8-10.8) X10*3/uL Hgb 12.6 (12.0-16.0) g/dl Hct 37.3 (37-47) % Plt Count 285 (160-400) X10*3/uL BMP 08/09/20 19:31 Sodium 137 Potassium 3.9 Chloride 104 Carbon Dioxide 24 BUN 12 Creatinine 0.72 Calcium 8.3 L Assessment and Plan (1) Ectopic : Problem details: Status post right partial salpingectomy Status: Acute Discussed with the patient the finding on ultrasound suspicious of ectopic . Since patient's exam direct abdominal tenderness and guarding the patient is not a candidate for methotrexate, recommended the patient laparoscopic right salpingostomy possible right partial salpingectomy. Discussed with the patient since HCG level is below 3500 level, there is the possibility of early intrauterine not diagnosed, and laparoscopic surgery can increase the risk SAB. Also discussed the patient the risks of the procedure including but not limited to bleeding, infection, possible injury to bladder, bowel bowel, blood vessels, possible need for blood transfusion with all irs risks, possible need for laparotomy or and or hysterectomy. Patient verbalized understanding agreed with the plan and signed the consent.
[2020-08-09 22:12] VITALS: BP 110/68; PULSE 74; RESP 15; TEMP 37.1; O2SAT 98
--- NOTE | 2020-08-09 22:13 | PC.NURSE ---
Pt reports 6/10 lower abd cramping but denies need for pain medication. denies needs.
--- NOTE | 2020-08-09 22:25 | PC.NURSE ---
dr gentile at bedside to transport pt to OR att.
--- NOTE | 2020-08-09 22:41 | MHC.SHP ---
Pre-Procedural Eval Section A The patient is an INPATIENT: No Changes since office visit: No Cold of Flu in the past 2 weeks, No New Medical Problems, No Changes in Medication and No Patient answered all questions The History & Physical has been completed within 30 days and I have reviewed it.: Yes Section B Chief Complaint: ? ETOPIC Allergies: Allergies Allergy/AdvReac Type Severity Reaction Status Date / Time No Known Allergies Allergy Verified 08/09/20 19:13 Plan Diagnosis/Plan: Unchanged Patient has been examined and remains a candidate for the planned procedure
--- NOTE | 2020-08-09 22:46 | P.CONAN_ITS ---
[facility] Past Medical History Medical History No known health problems Social History Social History Alcohol intake: never Smoking Status: Never smoker Use of substances other than those prescribed or required for medical reasons: No Advance Directives: No Meds Allergies Allergy/AdvReac Type Severity Reaction Status Date / Time No Known Allergies Allergy Verified 08/09/20 19:13 Home Medications Medication Instructions Recorded Confirmed Type No Known Home Meds 08/08/20 08/08/20 History Exam Exam Date and Time: August 09, 2020 6376 Height,Weight and Vital Signs: Height 5 ft 3 in Weight 72.575 kg Last Vital Signs Temp 98.7 F 08/09/20 22:12 Pulse 74 08/09/20 22:12 Resp 15 08/09/20 22:12 BP 110/68 08/09/20 22:12 Pulse Ox 98 08/09/20 22:12 Pertinent Lab Results Pertinent Lab Results: Laboratory Tests 08/09/20 08/09/20 08/09/20 19:31 19:31 21:45 WBC 8.5 RBC 4.22 Hgb 12.6 Hct 37.3 MCV 88.4 MCH 29.9 MCHC 33.8 RDW 12.8 Plt Count 285 MPV 10.3 Immature Gran % (Auto) 0.4 Neut % (Auto) 61.9 Lymph % (Auto) 28.3 Borden % (Auto) 7.9 Eos % (Auto) 1.1 Baso % (Auto) 0.4 Lymph # (Auto) 2.4 Borden # (Auto) 0.7 Eos # (Auto) 0.1 Baso # (Auto) 0.0 Abs Immat Gran (auto) 0.03 Absolute Neuts (auto) 5.3 Absolute Nucleated RBC 0.000 Nucleated RBC % (auto) 0.0 Sodium 137 Potassium 3.9 Chloride 104 Carbon Dioxide 24 Anion Gap 13 BUN 12 Creatinine 0.72 Estim Creat Clear Calc 110.0 Estimated GFR > 60 Random Glucose 66 Calcium 8.3 L Beta HCG, Quant 2331 Blood Type AB Positive Antibody Screen NEGATIVE Airway Mallampati Class: II TM Dist: >3cm Neck ROM: Full
[2020-08-10] VITALS (16 sets, daily range): BP systolic 98–131; BP diastolic 55–71; PULSE 56–81; RESP 16–26; TEMP 36.4; O2SAT 92–100
--- NOTE | 2020-08-10 00:29 | PM.OP ---
Brief Operative Note Date of Service: 08/10/20 Pre-op diagnosis: R ectopic tubal Post-op diagnosis: same (3-4 cm Right tubal ectopic fillling up the whole R fallopina tube with bluish discoloreation, 50 cc of hemoperitoneum) Procedure: Laparscoic right partiall salpingectomy Surgeon: Teodoro Vega MD Anesthesia: GETA Estimated blood loss (mL): 0 Pathology: other (Right partial fallopian tube wit ectopic ) Condition: stable Disposition: PACU
--- NOTE | 2020-08-10 00:31 | W.PM.OPN ---
Operative Note Operative Note Date of Service: 08/10/20 Narrative: PREOPERATIVE DIAGNOSIS:?R tubal ectopic POSTOPERATIVE DIAGNOSIS:?3-4 cm right ecotpic filling up most of the tubal length with bluish discoloration, 50 cc of hemoperitoneum Procedure: Right partial salpingectomy QBL: Minimal Anesthesia: GETA SURGEON:? Teodoro Vega MD?? Furniture Mechanic:None Complications: None Pathology: Right partial Fallopian tubes? DESCRIPTION OF PROCEDURE:?The patient was taken to the OR where general anesthesia was easily obtained. The patient was then prepped and draped in a sterile fashion and placed in dorsal lithotomy position. A speculum was introduced into the patient?s vagina for cervical visualization. a was introduced into the patient?s cervix. The single tooth tenaculum was then removed and hemostasis was assured?using pressure. a Tan catheter?was inserted and clear urine started draining. Gloves were changed to clean ones. Attention was then drawn to the abdomen where a 10 mm longitudinal incision was done intra umbilical and carried down all the way to the fascia, which was tented?up using 2 Edenilson clamps and was nicked in the midline and then extended on both end of the incision?, them using 2 pick?ups the peritoneum?was entered with Metzenbaum scissors and under direct visualization, a 10 mm De La Torre trocar was introduced into the patient?s abdomen. Once intraperitoneal placement was confirmed with direct visualization, pneumoperitoneum was started & was easily obtained.Then, two fingerbreadths above the pubic symphysis and towards the?right lower quadrant, under direct visualization, a 5 mm trocar was then introduced into the patient?s abdomen. and a 3rd one on the left?lower quadrant was placed?in a similar manner. The patient was placed in Trendelenburg position, Inspection revealed right tubal filling up most of the right tube was bluish discoloration and 50 cc of hemoperitoneum, normal bilateral ovaries and normal left fallopian tube. Attention was then drawn to the Right fallopian tube. Since most of the right tube was filled up with the ectopic with bluish discoloration decision was made to proceed with partial salpingectomy instead of salpingostomy The IP ligament was identified and fallopian tube was then grasped by the fimbria and incised from the mesosalpinx using ligasure device, using cautery for hemostasis and cutting afterwards a bite at a time all the way to the area medial to the edge of the ectopic of the right fallopian tube. Good hemostasis was noted from the right fallopian tube sites and the operative site. Specimen were then removed from the patient?s abdomen using endoloop from the 10 mm trocar through the umbilicus. Copious irrigation was done. Once good hemostasis was noted from the patient?s abdomen, pneumoperitoneum was deflated and all trocars were removed. Infraumbilical fascia was closed with 0 Vicryl and interrupted suture. The skin was closed with 4-0 Vicryl. The Right and left?lower quadrant ports were closed with 0 Vicryl. Bupivicaine 0.25 10 cc were injected subcuticularly in the 3 incisions. Then speculum was put back in the vagina inspection revealed?hemostasis at the site of the tenaculum, the?sponge stick was removed?from the patient's vagina and Tan was draining clear urine was taken out too. Sponge, lap and needle counts were correct x2. The patient was taken to the recovery room in stable condition.
[2020-08-10] MEDS: fentaNYL citrate/PF 100 MCG/2 ML VIAL 50 MCG IVPUSH ×3 (00:54→01:33)
[2020-08-10] MEDS: fentaNYL citrate/PF 100 MCG/2 ML VIAL 25 MCG IVPUSH (01:19)
[2020-08-10] MEDS: Acetaminophen 325 MG TABLET 650 MG PO (01:19)
[2020-08-10] MEDS: oxyCODONE HCl Immed Release 5 MG TABLET 10 MG PO (01:20)
--- NOTE | 2020-08-10 14:15 | HO.POSTANES ---
Post Anesthesia Evaluation Post Anesthesia Evaluation Anesthesia: General Mental Status: Awake Pain Control: Satisfactory Nausea/Vomiting: None Hydration: Adequate Anesthesia-Related Issues: No Anes. Related Issues
== END 2020-08-09 19:17 | disposition admitted as inpatient to this hospital (09) ==
PROVIDERS: Nurse Practitioner Family; Obstetrics & Gynecology; Emergency Provider Emergency Medicine; PCP Internal Medicine
PROC: 10T24ZZ Resection of Products of Conception, Ectopic, Percutaneous Endoscopic Approach (ICD-10-PCS; CPT 59150; principal; 2020-08-09 22:15)
DX: O00.90 Unspecified ectopic pregnancy without intrauterine pregnancy (principal); R10.31 Right lower quadrant pain
CPT/HCPCS: 36415; 76801; 76817; 80048; 84702; 85025; 86850; 86900; 86901; 88305; 96361; 96374; 96375; 99285; J1100; J2250; J2270; J2405; J3010

== ENCOUNTER 2020-08-11 14:04 | Outpatient (REF) | payer OTHER, SELFPAY ==
[2020-08-11 15:25] LABS: HCG Quantitative 470 mIU/mL
== END 2020-08-11 14:05 | disposition home or self-care (01) ==
LOC: HO.LAB 14:04
PROVIDERS: PCP Internal Medicine; Visit Provider Obstetrics & Gynecology
DX: O00.101 Right tubal pregnancy without intrauterine pregnancy (principal)
CPT/HCPCS: 84702; 99212

== ENCOUNTER 2020-08-19 12:14 | Outpatient (REF) | payer OTHER, SELFPAY ==
[2020-08-19 12:55] LABS: MANUAL DIFF FLAG NO
[2020-08-19 13:05] LABS: Basophils Absolute Auto 0.1 X10*3/uL (0.0-0.2); Basophils Percent Auto 0.8 % (0-2); Eosinophils Absolute Auto 0.1 X10*3/uL (0.0-0.4); Hematocrit 41.2 % (37-47); Hemoglobin 13.7 g/dl (12.0-16.0); Imm Gran Abs Auto 0.03 X10*3/uL (0.00-0.03); Imm Gran Pct Auto 0.4 % (0.0-0.4); Lymphocytes Absolute Auto 2.2 X10*3/uL (1.2-4.9); Lymphocytes Percent Auto 30.2 % (20-40); Mean Corpuscular HGB Conc 33.3 g/dl (31.0-35.0); Mean Corpuscular Hemoglobin 29.4 pg (27.0-33.0); Mean Corpuscular Volume 88.4 fL (80-98); Mean Platelet Volume 10.6 fL (9.4-12.3); Monocytes Absolute Auto 0.5 X10*3/uL (0.1-1.2); Monocytes Percent Auto 7.4 % (2-11); Neutrophils Absolute Auto 4.4 X10*3/uL (2.0-8.3); Neutrophils Percent Auto 60.2 % (45-73); Platelet Count 302 X10*3/uL (160-400); Red Blood Count 4.66 X10*6/uL (4.20-5.50); Red Cell Distribution Width 12.8 % (11.0-16.0); White Blood Count 7.3 X10*3/uL (4.8-10.8)
[2020-08-19 13:58] LABS: HCG Quantitative 31 mIU/mL
== END 2020-08-19 12:15 | disposition home or self-care (01) ==
LOC: HO.LAB 12:14
PROVIDERS: PCP Internal Medicine; Visit Provider Obstetrics & Gynecology
DX: O00.101 Right tubal pregnancy without intrauterine pregnancy (principal); Z3A.00 Weeks of gestation of pregnancy not specified
CPT/HCPCS: 36415; 84702; 85025; 99212

== ENCOUNTER → 2020-08-27 09:55 | Outpatient (BNVA) | payer OTHER, SELFPAY | PROVIDERS: Visit Provider Obstetrics & Gynecology | DX: Z76.89 Persons encountering health services in other specified circumstances (principal) ==

== ENCOUNTER → 2020-09-16 15:43 | Outpatient (BNVA) | payer OTHER, SELFPAY | PROVIDERS: PCP Internal Medicine; Visit Provider Obstetrics & Gynecology | DX: Z76.89 Persons encountering health services in other specified circumstances (principal) ==

== ENCOUNTER 2020-09-21 10:58 | Outpatient (REF) | payer OTHER, SELFPAY ==
[2020-09-21 11:53] LABS: HCG Quantitative < 2 mIU/mL
== END 2020-09-21 10:59 | disposition home or self-care (01) ==
LOC: HO.LAB 10:58
PROVIDERS: PCP Internal Medicine; Visit Provider Obstetrics & Gynecology
DX: O00.101 Right tubal pregnancy without intrauterine pregnancy (principal)
CPT/HCPCS: 36415; 84702

== ENCOUNTER 2020-12-01 17:52 | Emergency (ER) | payer OTHER, SELFPAY ==
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
[2020-12-01 18:10] VITALS: BP 112/64; PULSE 76; RESP 16; TEMP 37.1; O2SAT 100; BMI 29.2
[2020-12-01] MEDS: Cyclobenzaprine HCl 10 MG TABLET PO (19:15)
[2020-12-01] MEDS: Acetaminophen 325 MG TABLET 975 MG PO (19:15)
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
== END 2020-12-01 21:21 | disposition home or self-care (01) ==
PROVIDERS: Emergency Provider Internal Medicine; PCP Internal Medicine
DX: S13.4XXA Sprain of ligaments of cervical spine, initial encounter (principal); S43.402A Unspecified sprain of left shoulder joint, initial encounter; S29.011A Strain of muscle and tendon of front wall of thorax, initial encounter; V43.62XA Car passenger injured in collision with other type car in traffic accident, initial encounter; Y93.89 Activity, other specified; Y92.414 Local residential or business street as the place of occurrence of the external cause; Y99.9 Unspecified external cause status
CPT/HCPCS: 70450; 71046; 72125; 73030; 99284

== ENCOUNTER 2021-03-30 11:03 | Outpatient (REF) | payer OTHER, SELFPAY ==
[2021-03-30 11:41] LABS: MANUAL DIFF FLAG NO
[2021-03-30 11:49] LABS: Basophils Percent Auto 0.5 % (0-2); Eosinophils Absolute Auto 0.1 X10*3/uL (0.0-0.4); Hematocrit 40.2 % (37-47); Hemoglobin 13.2 g/dl (12.0-16.0); Imm Gran Abs Auto 0.02 X10*3/uL (0.00-0.03); Imm Gran Pct Auto 0.2 % (0.0-0.4); Lymphocytes Absolute Auto 1.9 X10*3/uL (1.2-4.9); Lymphocytes Percent Auto 22.1 % (20-40); Mean Corpuscular HGB Conc 32.8 g/dl (31.0-35.0); Mean Corpuscular Hemoglobin 29.2 pg (27.0-33.0); Mean Corpuscular Volume 88.9 fL (80-98); Mean Platelet Volume 10.2 fL (9.4-12.3); Monocytes Absolute Auto 0.6 X10*3/uL (0.1-1.2); Monocytes Percent Auto 6.5 % (2-11); Neutrophils Absolute Auto 5.9 X10*3/uL (2.0-8.3); Neutrophils Percent Auto 69.7 % (45-73); Platelet Count 261 X10*3/uL (160-400); Red Blood Count 4.52 X10*6/uL (4.20-5.50); Red Cell Distribution Width 13.1 % (11.0-16.0); White Blood Count 8.4 X10*3/uL (4.8-10.8)
[2021-03-30 12:30] LABS: Alanine Aminotransferase 7 U/L (0-31); Albumin Level 4.3 g/dL (3.5-5.0); Alkaline Phosphatase 53 U/L (39-117); Anion Gap 12 (12-20); Aspartate Amino Transferase 14 U/L (5-31); Bilirubin Total 0.6 mg/dL (0.0-1.0); Blood Urea Nitrogen 17 mg/dL (9-16); Calcium 9.2 mg/dL (8.4-10.2); Carbon Dioxide 25 mmol/L (22-29); Chloride 105 mmol/L (96-108); Cholesterol 147 mg/dL; Estimated Glomerular Filt Rate > 60; HDL Cholesterol 43 mg/dL; LDL Cholesterol Calculated 84 mg/dl; Potassium 4.4 mmol/L (3.3-5.1); Sodium 138 mmol/L (135-145); Total Protein 6.8 g/dL (6.5-8.0); Triglycerides 100 mg/dL
[2021-03-30 12:46] LABS: Glucose Random 51 mg/dL (60-115)
[2021-03-31 02:38] LABS: CT PCR NOT DETECTED (Not Detect.); NG PCR NOT DETECTED (Not Detect.)
== END 2021-03-30 11:04 | disposition home or self-care (01) ==
LOC: HO.LAB 11:03
PROVIDERS: PCP Internal Medicine; Visit Provider Internal Medicine
DX: Z00.00 Encounter for general adult medical examination without abnormal findings (principal); Z11.3 Encounter for screening for infections with a predominantly sexual mode of transmission; Z12.4 Encounter for screening for malignant neoplasm of cervix; Z13.31 Encounter for screening for depression
CPT/HCPCS: 80053; 80061; 85025; 87491; 87591

== ENCOUNTER 2021-04-22 14:48 | Emergency (ER) | payer OTHER, SELFPAY ==
[2021-04-22 15:06] VITALS: BP 118/75; PULSE 70; RESP 17; TEMP 36.3; O2SAT 99; BMI 29.2
--- NOTE | 2021-04-22 18:36 | ED_ITS ---
HPI - Ear Problem General Chief complaint: Ear Problems Stated complaint: foreign object in ear Time Seen by Provider: 04/22/21 18:19 Source: patient Mode of arrival: ambulatory History of Present Illness HPI Narrative: 31-year-old female with a tract medical history of asthma presenting to the ED complaining of left ear pain x3 days. Patient is concerned there is cotton ball/end of Q tip stuck in ear. Reports ear feels clogged. Denies fever, chills, drainage from ear, sore throat MD Complaint: ear pain Related Data Previous Rx's Medication Instructions Recorded ibuprofen 600 mg tablet 600 mg PO Q8H PRN #30 tab 08/10/20 acetaminophen 500 mg tablet 1,000 mg PO QID PRN #14 tab 12/01/20 (Tylenol Extra Strength) cyclobenzaprine 10 mg tablet 10 mg PO Q8H #10 tab 12/01/20 ofloxacin 0.3 % ear drops 10 drp OTIC (EARS) DAILY 7 Days ml 04/22/21 Allergies Allergy/AdvReac Type Severity Reaction Status Date / Time No Known Allergies Allergy Verified 09/21/20 13:54 Review of Systems Review of Systems: Constitutional: No Fever, No Chills ENT/Mouth: + Ear Pain, No Nasal Congestion, No Sinus Pain, No Hoarseness, No sore throat, No Rhinorrhea Cardiovascular: No Chest Pain, No SOB Respiratory: No Cough Musculoskeletal: No joint pain Skin: No Skin Lesions, No rash Yes all other systems are reviewed and are negative PMFSH Past Medical History Attestation statement: The following information was validated with the patient. Medical History Asthma No known health problems Surgical History History of salpingectomy History of tonsillectomy Social History Social History Alcohol intake: never Advance Directives: No Advance Directives Information Provided: No Patient : No Sexual orientation: Straight/Heterosexual Gender identity: female Physical Exam Vital Signs: Vital Signs: Last Vital Signs Temp 97.4 F 04/22/21 15:06 Pulse 70 04/22/21 15:06 Resp 17 04/22/21 15:06 BP 118/75 04/22/21 15:06 Pulse Ox 99 04/22/21 15:06 Body Mass Index 29.2 Const: General: cooperative, healthy appearing, no acute distress and well developed Orientation/consciousness: patient oriented x3 Limitations: no limitations HENMT: Head: Yes normal to inspection Ears: hearing grossly normal naty aterally, TM's normal bilaterally, mastoids normal, Abnormal EAC present (Left ear pinna tender to palpation) EAC tenderness on the left; Negative for no foreign body and no otic discharge, hearing grossly not impaired and no periauricular adenopathy General nose exam: Normal external nose present Face and sinus: Yes normal facial exam Mouth: Normal oral and palatal mucosa present Throat: Yes posterior oropharynx normal, Yes tonsils normal, Yes uvula midline, No peritonsillar mass and No uvular edema Eyes: General: appearance normal, both eyes and all related structures EOM: EOMs intact bilaterally Neck: Neck: Yes normal visual inspection and Yes no lymphadenopathy Resp: Effort & Inspection: normal respiratory effort and no respiratory distress Cardio: Rate: regular rate Skin: Rashes: no rashes Wounds: no wounds Neuro: General: patient oriented x3 Gait exam (Neuro): Normal gait present Extrem: General: Yes normal to inspection MDM - Ear MDM Narrative Medical decision making narrative: 31-year-old female with a tract medical history of asthma presenting to the ED complaining of left ear pain x3 days. On exam VSS, NAD, no foreign body appreciated in either ear canal. Left ear with external ear canal tenderness. Mastoids WNL. Will treat patient as otitis externa Discharge Plan Discharge Clinical Impression: Otitis externa Qualifiers: Otitis externa type: unspecified type Chronicity: acute Laterality: left Qualified Code(s): H60.502 - Unspecified acute noninfective otitis externa, left ear Patient Disposition: Home, Self-Care Instructions: Otitis Externa (ED) Additional Instructions: You have an external ear infection Use ofloxacin antibiotic ear drops as prescribed In addition take Tylenol and Motrin at home Follow-up with her doctor new line if her symptoms persist or worsen, he developed hearing loss, drainage from your your or fever please return to the ED Prescriptions: New ofloxacin 0.3 % drops 10 drp otic (ears) DAILY 7 Days RF: 0 No Action ibuprofen 600 mg tablet 600 mg PO Q8H PRN (Reason: pain) Qty: 30 RF: 0 cyclobenzaprine 10 mg tablet 10 mg PO Q8H Qty: 10 RF: 0 acetaminophen [Tylenol Extra Strength] 500 mg tablet 1,000 mg PO QID PRN (Reason: fever or pain) Qty: 14 RF: 0 Referrals: Bhavana Morrow MD [Primary Care Provider] - 3 days (as needed)
== END 2021-04-22 18:52 | disposition home or self-care (01) ==
PROVIDERS: Emergency Provider Emergency Medicine Emergency Medical Services; PCP Internal Medicine
DX: H60.502 Unspecified acute noninfective otitis externa, left ear (principal); H92.02 Otalgia, left ear
CPT/HCPCS: 99283

== ENCOUNTER 2021-08-10 22:31 | Emergency (ER) | payer OTHER, SELFPAY ==
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
[2021-08-10 23:48] VITALS: BP 114/69; PULSE 71; RESP 18; TEMP 36.9; O2SAT 98; BMI 29.2
--- NOTE | 2021-08-11 01:05 | ED_ITS ---
HPI - Extremity Injury (Lower) General Chief Complaint: Extremity Injury, Lower Stated Complaint: rt hip pain Source: patient Mode of arrival: ambulatory Limitations: no limitations History of Present Illness HPI Narrative: 31-year-old female presents with right hip injury from a fall approximately 2 weeks ago. States she is having a difficult time ambulating and having a difficult time with abduction and adduction does not report any fevers or chills states have full range of motion to the knee and ankle. MD complaint: hip injury Onset (ago): week(s) (2) Type of Injury: hyperextension Place: home Severity: moderate Severity scale (1-10): 7 Relieving factors: nothing Exacerbating factors: weight bearing, movement and palpation Context: fall Associated symptoms: able to partially bear weight Other symptoms: none Treatments prior to arrival: cold therapy, heart therapy and NSAIDS Related Data Previous Rx's Medication Instructions Recorded ibuprofen 600 mg tablet 600 mg PO Q8H PRN #30 tab 08/10/20 acetaminophen 500 mg tablet 1,000 mg PO QID PRN #14 tab 12/01/20 (Tylenol Extra Strength) cyclobenzaprine 10 mg tablet 10 mg PO Q8H #10 tab 12/01/20 ofloxacin 0.3 % ear drops 10 drp OTIC (EARS) DAILY 7 Days ml 04/22/21 cyclobenzaprine 10 mg tablet 10 mg PO BEDTIME PRN #7 tab 08/11/21 naproxen 500 mg tablet 500 mg PO BID PRN #30 tab 08/11/21 Allergies Allergy/AdvReac Type Severity Reaction Status Date / Time No Known Allergies Allergy Verified 09/21/20 13:54 Review of Systems Review of Systems: Constitutional: No Fever, No Chills ENT/Mouth: No Ear Pain, No Hoarseness, No sore throat Eyes: No Eye Pain, No Swelling, No Redness, No Foreign Body Cardiovascular: No Chest Pain, No SOB Respiratory: No Cough, No Dyspnea Gastrointestinal: No Nausea, No Vomiting, No Diarrhea, No abdominal Pain Genitourinary: No Dysuria, No Hematuria Musculoskeletal: positive right hip pain, No Myalgias, No Joint Swelling Skin: No Skin lacerations, No rash Neuro: No Weakness, No Numbness, No Paresthesias, No Loss of Consciousness, No Dizziness, No Headache Psych: No Anxiety/Panic, No Depression Heme/Lymph: no easy bruising, no Lymphadenopathy Endocrine: No Polyuria, No Polydipsia Yes all other systems are reviewed and are negative [facility] Past Medical History Attestation statement: The following information was validated with the patient. Source: old records reviewed Medical History Asthma No known health problems Surgical History History of salpingectomy History of tonsillectomy Social History Social History Alcohol intake: never Advance Directives: No Advance Directives Information Provided: Yes Patient : No Sexual orientation: Straight/Heterosexual Gender identity: Female Physical Exam Vital Signs: Vital Signs: Last Vital Signs Temp 98.4 F 08/10/21 23:48 Pulse 71 08/10/21 23:48 Resp 18 08/10/21 23:48 BP 114/69 08/10/21 23:48 Pulse Ox 98 08/10/21 23:48 Body Mass Index 29.2 Appearance: Alert. Oriented X3. Mild distress. Eyes: Pupils equal, round and reactive to light. ENT: Pharynx normal. Neck: Normal inspection. Neck supple. CVS: Normal heart rate and rhythm. Pulses normal. Respiratory: No respiratory distress. Breath sounds normal. Abdomen: Soft and nontender. Skin: Skin warm and dry. Normal skin color. Normal skin turgor. Extremities: Decreased range of motion with extension flexion and abduction to right hip. Full range of motion to bilateral knees and ankles. Brisk capillary refill and equal pedal pulses bilaterally. Pelvis is stable. Neuro: No motor deficit. No sensory deficit. Cranial nerves 2-12 intact. Course Course Course Narrative: 31-year-old female presents with injuries to the right hip after a fall approximately 2 weeks ago. X-rays are negative for fracture, effusion. Suspected IT band or tendon injury to the hip. She does have brisk capillary refill and equal pedal pulses. Neurovascularly intact. Appears nontoxic and afebrile. provide crutches, give cyclobenzaprine for as a muscle relaxer and prescription for naproxen. Patient does understand that she must follow-up with orthopedics and her primary care physician. Patient verbalizes understanding of and agrees to plan of care discharge home MDM - Extremity Injury (Lower) Differential Diagnosis Differential diagnosis: Likely fracture of hip Medical Records Attestation: I reviewed the patient's medical records. Imaging Data Right hip x-ray: Attestation: I personally reviewed and interpreted this imaging study as follows: Radiologist's impression: EXAMINATION: XR HIP, RIGHT CLINICAL INFORMATION: Right hip pain after fall COMPARISON: CT abdomen pelvis 07/11/2019 TECHNIQUE: Two views of the right hip. FINDINGS: Bones and soft tissues are normal. No fracture. Alignment is anatomic. Hip joint space is maintained.? XR/XR hip RT w [id number] IMPRESSION: Normal right hip. Discharge Plan Discharge Clinical Impression: Iliotibial band tendinitis of right side, Acute right hip pain Patient Disposition: Home, Self-Care Instructions: Hip Pain (ED), Iliotibial Band Syndrome (ED) Additional Instructions: You were evaluated for right hip pain after a fall approximately 2 weeks ago. This could possibly be an iliotibial band syndrome versus a ligament injury. Please follow-up with orthopedics. Please call and request an appointment tomorrow morning. I have prescribed cyclobenzaprine. This medication is on muscle relaxer and can reduce reaction time, increased drowsiness, and increased risk for falls. Do not drive or operate machinery while taking this medication. Please take naproxen 500 mg twice a day as needed for pain management. Do not take this medication with cyclobenzaprine. You may take cyclobenzaprine 4 hours after taking naproxen. Thank you for choosing this emergency department for evaluation. Please follow-up with primary care physician as needed. Return to the emergency department for any new, concerning, or worsening symptoms. Prescriptions: New cyclobenzaprine 10 mg tablet 10 mg PO BEDTIME PRN (Reason: muscle spasm) Qty: 7 RF: 0 naproxen 500 mg tablet 500 mg PO BID PRN (Reason: pain) Qty: 30 RF: 0 No Action ibuprofen 600 mg tablet 600 mg PO Q8H PRN (Reason: pain) Qty: 30 RF: 0 cyclobenzaprine 10 mg tablet 10 mg PO Q8H Qty: 10 RF: 0 acetaminophen [Tylenol Extra Strength] 500 mg tablet 1,000 mg PO QID PRN (Reason: fever or pain) Qty: 14 RF: 0 ofloxacin 0.3 % drops 10 drp otic (ears) DAILY 7 Days RF: 0 Referrals: Lorene Flower PA-C [Physician Constitutional Law Professor] - 2 days (Possible ligament injury to the right hip) Stand Alone Forms: Work/School Release
--- NOTE | 2021-08-11 02:06 | PC.NURSE ---
crutches given to pt. pt verbalized u/s of d/c instructions and left ED in W/C to car waiting for ride home.
== END 2021-08-11 02:09 | disposition home or self-care (01) ==
PROVIDERS: Emergency Provider Student in an Organized Health Care Education/Training Program; PCP Internal Medicine
DX: M76.31 Iliotibial band syndrome, right leg (principal); M25.551 Pain in right hip
CPT/HCPCS: 73502; 99283

== ENCOUNTER 2022-03-03 11:59 | Emergency (ER) | payer OTHER, SELFPAY ==
--- NOTE | ~2022-03-03 | CT_ITS ---
EXAMINATION: CT HEAD WITHOUT CONTRAST CLINICAL INFORMATION: Headache COMPARISON: CT head 12/01/2020 TECHNIQUE: Contiguous axial imaging was performed from the skull base to vertex without intravenous administration of contrast. This CT examination was performed using dose optimization techniques as appropriate, variously including the following: *Automated exposure control *Adjustment of mA and/or kV according to patient size (this includes techniques or standardized protocols for targeted exams where dose is matched to indication/reason for exam; i.e. extremities or head) *Use of iterative reconstruction technique DLP: 766 mGy-cm FINDINGS: There is no evidence of acute intracranial hemorrhage or territorial infarction. No abnormal mass effect or midline shift is seen. Solares to white matter differentiation is well preserved. No extra-axial fluid collections are identified. The ventricles are normal in size. No acute calvarial fracture. The mastoid air cells and visualized portions of the paranasal sinuses are well aerated. CT/CT head/brain wo con IMPRESSION: No CT evidence of acute intracranial pathology.
[2022-03-03 13:01] VITALS: BP 124/68; PULSE 65; RESP 16; TEMP 36.4; O2SAT 98; BMI 30.2
[2022-03-03 15:34] VITALS: BP 104/61; PULSE 55; RESP 16; TEMP 36.8; O2SAT 98
--- NOTE | 2022-03-03 17:14 | ED_ITS ---
HPI - Headache General Chief Complaint: Headache Stated Complaint: migraine, not sleeping Time Seen by Provider: 03/03/22 17:12 Source: patient Mode of arrival: ambulatory Limitations: no limitations History of Present Illness HPI Narrative: 31 years old female came in for evaluation of headache. Headache started since last night at 22:00, started as a gradual onset progressively getting worse, headache is associated with photophobia, headache is worsening by light and noise, no neck pain or neck stiffness, patient been getting similar headache over the past few months, no history of head injury, no fever, no sore throat, no flu-like symptoms. Patient's sister had brain tumor but required no surgery and she is doing fine now patient cannot provide further information about her sister's history. Headache is worsening with noise and light, relieved if she is able to sleep, patient took Excedrin partially relieves the headache. Patient was able to take a nap in the emergency department while waiting and now she is feeling better. Patient scheduled to see her PCP in 2 weeks for the headache. Related Data Previous Rx's Medication Instructions Recorded ibuprofen 600 mg tablet 600 mg PO Q8H PRN pain #30 tabs 08/10/20 acetaminophen 500 mg tablet 1,000 mg PO QID PRN fever or pain 12/01/20 (Tylenol Extra Strength) #14 tabs cyclobenzaprine 10 mg tablet 10 mg PO Q8H Muscle spasm #10 tabs 12/01/20 ofloxacin 0.3 % ear drops 10 drp otic (ears) DAILY 7 days 04/22/21 cyclobenzaprine 10 mg tablet 10 mg PO BEDTIME PRN muscle spasm 08/11/21 #7 tabs naproxen 500 mg tablet 500 mg PO BID PRN pain #30 tabs 08/11/21 Allergies Allergy/AdvReac Type Severity Reaction Status Date / Time No Known Allergies Allergy Verified 09/21/20 13:54 Review of Systems Review of Systems: All other systems are reviewed and are negative Constitutional: Reports as per HPI and Reports no additional constitutional complaints Eyes: Reports as per HPI and Reports no additional eye complaints Reports system reviewed and no additional complaints, except as documented Cardiovascular: Reports as per HPI and Reports no additional cardiovascular complaints Respiratory: Reports as per HPI and Reports no additional respiratory complaints Gastrointestinal: Reports as per HPI and Reports no additional gastrointestinal complaints Genitourinary: Reports no additional female genitourinary complaints Musculoskeletal: Reports no additional musculoskeletal complaints Skin/Breast: Reports system reviewed and no additional complaints, except as docu Psychiatric: Reports no additional psychiatric complaints Endocrine: Reports no additional endocrine complaints Hematologic/Lymphatic: Reports no additional hematologic/lymphatic complaints Allergic/Immunologic: Reports no additional allergic/immunologic complaints Reports system reviewed and no additional complaints, except as documented and Reports Abnormal speech present [facility] Past Medical History Medical History Asthma Surgical History History of salpingectomy History of tonsillectomy Social History Social History Alcohol intake: never Smoked in Last 30 Days: No Use of substances other than those prescribed or required for medical reasons: Yes Substance Use Type: Marijuana Advance Directives: No Advance Directives Information Provided: No Sexual orientation: Straight/Heterosexual Gender identity: Female Physical Exam Vital Signs: Vital Signs: Last Vital Signs Temp 98.3 F 03/03/22 15:34 Pulse 55 03/03/22 15:34 Resp 16 03/03/22 15:34 BP 104/61 03/03/22 15:34 Pulse Ox 98 03/03/22 15:34 O2 Del Method 03/03/22 15:34 BMI result Body Mass Index 30.2 Vital signs have been reviewed as appeared to be correct. Blood pressure normal. Heart rate normal. Respiration rate normal. Temperature normal. Oxygen saturation normal. Appearance: Alert. Oriented X3. No acute distress. Head: Normal external exam. Normocephalic. Atraumatic. No Chery signs noted. No raccoon eyes noted Eyes: PERRLA. EOMI. Conjunctiva and sclera normal. Eyelids normal. ENT: TM's Normal. Pharynx normal. Uvula midline. Moist mucous membranes. No trismus noted. No drooling noted. No muffled voice noted. Neck: Normal inspection. Neck supple. FROM. No adenopathy. Thyroid Normal. No meningeal signs. No neck mass noted. CVS: Normal heart rate and rhythm. Heart sound normal. No murmurs noted. Pulses normal throughout. Respiratory: No respiratory distress. Painless inspiration. Breath sounds normal. No wheezes/rales/rhonchi noted. Chest nontender. No accessory muscle usage noted or decreased air movement noted. Abdomen: Soft and nontender. Bowel sounds normal in all 4 quadrants. No distention noted. No organomegaly noted. No visible injury noted. Back: No CVA tenderness. Full range of motion noted. Skin: Skin warm and dry. Normal skin color. Normal skin turgor. No rashes/lesions/lacerations noted. Extremities: No lower extremity edema. Extremities exhibit normal range of motion. Extremities nontender. Neuro: Oriented X 3. Cranial nerve exam: II-XII are grossly intact No motor deficit. No sensory deficit. Reflexes normal. Course Course Course Narrative: Assessment and plan. 31-year-old female with headache that is typical known similar to her previous headache, headache has improved after Excedrin and having a nap in the emergency department, patient stated that headache is 1/10 now, head CT is unremarkable, unremarkable neuro exam. MDM - Headache Imaging Data Head CT: Attestation: I personally reviewed and interpreted this imaging study as follows: Radiologist's impression: No acute intracranial pathology. Discharge Plan Discharge Clinical Impression: Migraine Patient Disposition: Home, Self-Care Instructions: Migraine Headache (ED) Prescriptions: No Action ibuprofen 600 mg tablet 600 mg PO Q8H PRN (Reason: pain) Qty: 30 0RF cyclobenzaprine 10 mg tablet 10 mg PO Q8H Qty: 10 0RF acetaminophen [Tylenol Extra Strength] 500 mg tablet 1,000 mg PO QID PRN (Reason: fever or pain) Qty: 14 0RF ofloxacin 0.3 % drops 10 drp otic (ears) DAILY 7 Days 0RF cyclobenzaprine 10 mg tablet 10 mg PO BEDTIME PRN (Reason: muscle spasm) Qty: 7 0RF naproxen 500 mg tablet 500 mg PO BID PRN (Reason: pain) Qty: 30 0RF Referrals: Bhavana Morrow MD [Primary Care Provider] - Melanie Campos MD [Physician] - Stand Alone Forms: Work/School Release Interventions: LWBS Worksheet Last Done: 03/03/22 14:27
[2022-03-03 19:20] VITALS: BP 107/62; PULSE 74; RESP 16; TEMP 36.8; O2SAT 97
== END 2022-03-03 19:45 | disposition home or self-care (01) ==
PROVIDERS: Emergency Provider Emergency Medicine; PCP Internal Medicine
DX: G43.009 Migraine without aura, not intractable, without status migrainosus (principal); J45.909 Unspecified asthma, uncomplicated
CPT/HCPCS: 70450; 99284

== ENCOUNTER 2022-05-16 08:14 | Emergency (ER) | payer OTHER, SELFPAY ==
[2022-05-16 08:18] VITALS: BP 117/70; PULSE 69; RESP 18; TEMP 36.8; O2SAT 99; BMI 29.5
--- NOTE | 2022-05-16 08:24 | ED_ITS ---
HPI - General Adult General Chief complaint: General Medical Stated complaint: Neck/shoulder pain Time Seen by Provider: 05/16/22 08:24 Source: patient Mode of arrival: ambulatory Limitations: no limitations History of Present Illness HPI narrative: Patient is a 32 year old female presenting to the emergency department today with neck pain. Patient states that she gets spasms in her neck and this one has been going on 3 days. Patient states that usually naproxen fixes it and it hasn't helped this one. Patient states that she did not take naproxen today. Patient denies any dizziness, lightheadedness, abdominal pain, nausea, vomiting, fever, chills, blurry vision, double vision, loss of vision, chest pain, difficulty breathing, shortness of breath, back pain, night sweats, pain with urination, increased urinary frequency, increased urinary urgency, blood in her urine or stool, syncope or a near syncopal episode, recent trauma or falls, bowel incontinence, bladder incontinence, bowel retention, bladder retention, or any other complaints at this time. Onset (ago): day(s) (3) Location: neck Radiation: non-radiation Severity: mild Severity scale (1-10): 1 Quality: dull Pain Consistency: constant Relieving factors: none Exacerbating factors: none Associated symptoms: denies other symptoms Treatments prior to arrival: none Related Data Previous Rx's Medication Instructions Recorded ibuprofen 600 mg tablet 600 mg PO Q8H PRN pain #30 tabs 08/10/20 acetaminophen 500 mg tablet 1,000 mg PO QID PRN fever or pain 12/01/20 (Tylenol Extra Strength) #14 tabs naproxen 500 mg tablet 500 mg PO BID PRN pain #30 tabs 08/11/21 cyclobenzaprine 5 mg tablet 5 mg PO TID PRN neck pain 7 days 05/16/22 #21 tabs Allergies Allergy/AdvReac Type Severity Reaction Status Date / Time No Known Allergies Allergy Verified 09/21/20 13:54 Review of Systems Constitutional: Constitutional: Reports no additional constitutional complain ts, Denies chills, Denies fever(s) and Denies night sweats Eyes: Eyes: Reports no additional eye complaints, Denies blurry vision, Denies change in vision, Denies diplopia, Denies eye discharge, Denies loss of vision and Denies eye pain ENT: Denies dizziness and Reports neck pain Cardiovascular: Cardiovascular: Reports no additional cardiovascular complaints, Denies chest pain, Denies lightheadedness, Denies Loss of Consciousness and Denies dyspnea Respiratory: Respiratory: Reports no additional respiratory complaints and Denies dyspnea Gastrointestinal: Gastrointestinal: Reports no additional gastrointestinal complaints, Denies abdominal pain, Denies melena, Denies hematochezia, Denies change in bowel habits and Denies change in stool character Genitourinary: Genitourinary: Denies hematuria, Denies urinary frequency, Denies dysuria, Denies urinary incontinence, Denies urinary hesitancy and Denies urinary urgency Musculoskeletal: Musculoskeletal: Reports no additional musculoskeletal complaints, Reports neck pain, Denies numbness and Denies tingling Neurologic: Denies dizziness, Denies loss of vision, Denies numbness and Denies tingling Psychiatric: Psychiatric: Reports no additional psychiatric complaints Endocrine: Endocrine: Reports no additional endocrine complaints Hematologic/Lymphatic: Hematologic/Lymphatic: Reports no additional hematologic/lymphatic complaints Allergic/Immunologic: Allergic/Immunologic: Reports no additional allergic/immunologic complaints PMFSH Past Medical History Attestation statement: The following information was validated with the patient. Source: old records reviewed Medical History Asthma No known health problems Surgical History History of salpingectomy History of tonsillectomy Social History Social History Alcohol intake: never Substance Use Type: Marijuana Advance Directives: No Advance Directives Information Provided: No Sexual orientation: Straight/Heterosexual Gender identity: Female Physical Exam ED Vital Signs: Vital Signs - 24 hr 05/16/22 08:18 Temperature 98.3 F Pulse Rate 69 Respiratory Rate 18 Blood Pressure 117/70 Pulse Oximetry 99 Oxygen Delivery Method Room Air BMI result Body Mass Index 29.5 Const General: cooperative, no acute distress, alert and awake Nutritional Appearance: well nourished Orientation/consciousness: patient oriented x3 Limitations: no limitations HENMT Head: Yes normal to inspection and Yes atraumatic Ears: hearing grossly normal bilaterally and external ears normal General nose exam: Normal external nose present, no nasal discharge noted and no epistaxis Face and sinus: Yes normal facial exam, No abrasion and No laceration Mouth: Normal oral and palatal mucosa present, no drooling and no muffled voice Eyes General: appearance normal, both eyes and all related structures Periorbital: periorbital findings normal Eyelids: Yes eyelids normal Conjunctivae: conjunctivae normal Pupils: Equal, round and reactive pupils present EOM: EOMs intact bilaterally Neck Neck: Yes normal visual inspection, Yes full ROM and Yes no lymphadenopathy Chest Chest palpation & inspection: normal inspection of the chest Resp Effort & Inspection: normal respiratory effort and able to speak in complete sentences Auscultation: clear to auscultation bilaterally Cardio Rate: regular rate Rhythm: regular rhythm GI Inspection: Yes normal to inspection Neuro General: patient oriented x3 and moves all extremities Cranial nerves: Yes Equal, round and reactive pupils present Cognition (Neuro): normal cognition Motor exam (neuro): 5/5 motor strength present throughout Sensory Exam: Normal double simultaneous stimulation for sensation Coordination: [id number] test normal Extrem General: Yes normal to inspection, Yes full ROM and Yes capillary refill normal Psych Appearance: grossly normal Mental Status: mental status grossly normal Affect: normal affect Attitude: cooperative Thought process: Normal thought process present Thought content: Normal thought content present Insight: Good insight present (Psych) Medical Decision Making MDM Narrative Medical decision making narrative: Patient is a 32 year old female presenting to the emergency department today with left neck pain. Patient's physical exam was unremarkable. I explained my physical exam findings to the patient. I answered all questions asked by the patient. Patient received PO Flexeril and IM Toradol which she stated helped her symptoms significantly. I stressed the importance of the patient taking her medication as prescribed. I stressed the importance of the patient following up with her primary care provider. I stressed the importance of the patient returning to the emergency department immediately if her symptoms were to worsen or if she were to develop any dizziness, shortness of breath, difficulty breathing, chest pain, blurry vision, loss of vision, nausea, vomiting, abdominal pain, fever, chills, back pain, or any other complaints. Patient verbalized agreement and understanding with this treatment plan and discharge. Differential Diagnosis Differential Diagnosis: neck pain, cervical radiculopathy Medical Records Medical records reviewed: Yes I reviewed the patient's medical records. Discharge Plan Discharge Clinical Impression: Cervical radiculopathy Patient Disposition: Home, Self-Care Instructions: Cervical Radiculopathy (ED) Additional Instructions: Follow up with your primary care provider. Return to the emergency department immediately if your symptoms worsen or if you develop any dizziness, shortness of breath, difficulty breathing, chest pain, blurry vision, loss of vision, nausea, vomiting, abdominal pain, fever, chills, back pain, or any other complaints. Prescriptions: New cyclobenzaprine 5 mg tablet 5 mg PO TID PRN (Reason: neck pain) 7 Days Qty: 21 0RF Continued acetaminophen [Tylenol Extra Strength] 500 mg tablet 1,000 mg PO QID PRN (Reason: fever or pain) Qty: 14 0RF Held ibuprofen 600 mg tablet 600 mg PO Q8H PRN (Reason: pain) Qty: 30 0RF Hold Instructions: Resume on 05/17/22. naproxen 500 mg tablet 500 mg PO BID PRN (Reason: pain) Qty: 30 0RF Hold Instructions: Resume on 05/17/22. Discontinued cyclobenzaprine 10 mg tablet 10 mg PO Q8H Qty: 10 0RF ofloxacin 0.3 % drops 10 drp otic (ears) DAILY 7 Days 0RF cyclobenzaprine 10 mg tablet 10 mg PO BEDTIME PRN (Reason: muscle spasm) Qty: 7 0RF Referrals: Bhavana Morrow MD [Primary Care Provider] - (Follow up with your PCP. ) Stand Alone Forms: Work/School Release Print Language: Trinidadian
[2022-05-16] MEDS: Cyclobenzaprine HCl 5 MG TABLET PO (08:47)
[2022-05-16] MEDS: Ketorolac Tromethamine 15 MG/ML VIAL IM (08:47)
== END 2022-05-16 08:51 | disposition home or self-care (01) ==
PROVIDERS: Emergency Provider Emergency Medicine; PCP Internal Medicine
DX: M54.12 Radiculopathy, cervical region (principal)
CPT/HCPCS: 96372; 99283; 99284; J1885

== ENCOUNTER 2022-05-22 05:25 | Emergency (ER) | payer OTHER, SELFPAY ==
[2022-05-22 05:42] VITALS: BP 116/64; PULSE 73; RESP 16; TEMP 36.1; O2SAT 98; BMI 30.2
[2022-05-22] MEDS: diazePAM 2 MG TABLET PO (08:58)
[2022-05-22] MEDS: oxyCODONE HCl Immed Release 5 MG TABLET PO (08:58)
--- NOTE | 2022-05-22 09:02 | ED_ITS ---
HPI - General Adult General Chief complaint: General Medical Stated complaint: muscle spasms across back Time Seen by Provider: 05/22/22 08:47 Source: patient Mode of arrival: ambulatory Limitations: no limitations History of Present Illness HPI narrative: 32-year-old female came in for evaluation of neck pain and muscle spasm. 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 The pain and spasm is restricting the patient from working, patient tried naproxen and cyclobenzaprine for pain with no relief. Related Data Previous Rx's Medication Instructions Recorded ibuprofen 600 mg tablet 600 mg PO Q8H PRN pain #30 tabs 08/10/20 acetaminophen 500 mg tablet 1,000 mg PO QID PRN fever or pain 12/01/20 (Tylenol Extra Strength) #14 tabs naproxen 500 mg tablet 500 mg PO BID PRN pain #30 tabs 08/11/21 cyclobenzaprine 5 mg tablet 5 mg PO TID PRN neck pain 7 days 05/16/22 #21 tabs diazepam 2 mg tablet (Valium) 2 mg PO TID PRN muscle spasm #7 05/22/22 tabs oxycodone 5 mg tablet 5 mg PO TID PRN pain #6 tabs 05/22/22 Allergies Allergy/AdvReac Type Severity Reaction Status Date / Time No Known Allergies Allergy Verified 09/21/20 13:54 Review of Systems Review of Systems: All other systems are reviewed and are negative Constitutional: Reports as per HPI and Reports no additional constitutional complaints Eyes: Reports as per HPI and Reports no additional eye complaints Reports system reviewed and no additional complaints, except as documented Cardiovascular: Reports as per HPI and Reports no additional cardiovascular complaints Respiratory: Reports as per HPI and Reports no additional respiratory complaints Gastrointestinal: Reports as per HPI and Reports no additional gastrointestinal complaints Genitourinary: Reports no additional female genitourinary complaints Musculoskeletal: Reports no additional musculoskeletal complaints Skin/Breast: Reports system reviewed and no additional complaints, except as docu Psychiatric: Reports no additional psychiatric complaints Endocrine: Reports no additional endocrine complaints Hematologic/Lymphatic: Reports no additional hematologic/lymphatic complaints Allergic/Immunologic: Reports no additional allergic/immunologic complaints Reports system reviewed and no additional complaints, except as documented and Reports Abnormal speech present [facility] Past Medical History Medical History Asthma No known health problems Surgical History History of salpingectomy History of tonsillectomy Social History Social History Alcohol intake: never Substance Use Type: Marijuana Advance Directives: No Advance Directives Information Provided: No Sexual orientation: Straight/Heterosexual Gender identity: Female Physical Exam ED Vital Signs: Vital Signs - 24 hr 05/22/22 05:42 Temperature 97.0 F Pulse Rate 73 Respiratory Rate 16 Blood Pressure 116/64 Pulse Oximetry 98 Oxygen Delivery Method Room Air BMI result Body Mass Index 30.2 Vital signs have been reviewed as appeared to be correct. Blood pressure nor mal. Heart rate normal. Respiration rate normal. Temperature normal. Oxygen saturation normal. Appearance: Alert. Oriented X3. No acute distress. Head: Normal external exam. Normocephalic. Atraumatic. No Chery signs noted. No raccoon eyes noted Eyes: PERRLA. EOMI. Conjunctiva and sclera normal. Eyelids normal. ENT: TM's Normal. Pharynx normal. Uvula midline. Moist mucous membranes. No trismus noted. No drooling noted. No muffled voice noted. Neck: Normal inspection. Neck supple. FROM. No step-off, no deformity. No adenopathy. Thyroid Normal. No meningeal signs. No neck mass noted. CVS: Normal heart rate and rhythm. Heart sound normal. No murmurs noted. Pulses normal throughout. Respiratory: No respiratory distress. Painless inspiration. Breath sounds normal. No wheezes/rales/rhonchi noted. Chest nontender. No accessory muscle usage noted or decreased air movement noted. Abdomen: Soft and nontender. Bowel sounds normal in all 4 quadrants. No d istention noted. No organomegaly noted. No visible injury noted. Back: No CVA tenderness. Full range of motion noted. Skin: Skin warm and dry. Normal skin color. Normal skin turgor. No rashes/l esions/lacerations noted. Extremities: No lower extremity edema. Extremities exhibit normal range of motion. Extremities nontender. Neuro: Oriented X 3. Cranial nerve exam: II-XII are grossly intact No motor deficit. No sensory deficit. Reflexes normal. Course Course Course Narrative: Spasmodic torticollis to the neck, neuro exam is intact and no concern of injury, physical exam and presentation is not typical for cervical radiculopathy, patient's symptoms improved with oxycodone/Valium in the ED. Discharge Plan Discharge Clinical Impression: Muscular torticollis Patient Disposition: Home, Self-Care Instructions: Spasmodic Torticollis (ED) Prescriptions: New oxycodone 5 mg tablet 5 mg PO TID PRN (Reason: pain) Qty: 6 0RF Rx Instructions: Partial Fill upon patient request. diazepam [Valium] 2 mg tablet 2 mg PO TID PRN (Reason: muscle spasm) Qty: 7 0RF No Action ibuprofen 600 mg tablet 600 mg PO Q8H PRN (Reason: pain) Qty: 30 0RF Hold Instructions: Resume on 05/17/22. acetaminophen [Tylenol Extra Strength] 500 mg tablet 1,000 mg PO QID PRN (Reason: fever or pain) Qty: 14 0RF naproxen 500 mg tablet 500 mg PO BID PRN (Reason: pain) Qty: 30 0RF Hold Instructions: Resume on 05/17/22. cyclobenzaprine 5 mg tablet 5 mg PO TID PRN (Reason: neck pain) 7 Days Qty: 21 0RF Referrals: Physician,Unknown J [Primary Care Provider] - Stand Alone Forms: Work/School Release
== END 2022-05-22 10:29 | disposition home or self-care (01) ==
PROVIDERS: Emergency Provider Emergency Medicine
DX: M43.6 Torticollis (principal); Z79.899 Other long term (current) drug therapy
CPT/HCPCS: 99283

== ENCOUNTER 2022-06-13 08:29 | Emergency (ER) | payer OTHER, SELFPAY ==
--- NOTE | ~2022-06-13 | CT_ITS ---
EXAMINATION: CT CERVICAL SPINE WITHOUT CONTRAST CLINICAL INFORMATION: Left neck pain radiating down upper extremity with tingling and numbness. COMPARISON: 12/01/2020 TECHNIQUE: Noncontrast multidetector CT imaging examination of the cervical spine is performed. The axial images and multiplanar reformatted images are reviewed. This CT examination was performed using dose optimization techniques as appropriate, variously including the following: *Automated exposure control *Adjustment of mA and/or kV according to patient size (this includes techniques or standardized protocols for targeted exams where dose is matched to indication/reason for exam; i.e. extremities or head) *Use of iterative reconstruction technique DLP: 488 mGy-cm FINDINGS: No acute findings compared to the prior cervical spine CT examination from 12/01/2020. The skull base is normal. The craniocervical junction, dens and atlantodental articulation are intact. The cervical vertebra have normal height and alignment. No acute fractures in the anterior or posterior elements. No prevertebral soft tissue swelling. There is chronic reversal of lordosis above the C5-C6 level. There is chronic [id number] anterior disc space narrowing and anterior vertebral osteophyte formation at C5-C6. There appears to be a chronic, small posterior disc-osteophyte complex at C5-C6 that causes mild indentation on the ventral surface of the thecal sac and chronic mild narrowing of the central canal at this level. No high-grade spinal canal stenosis. The hypertrophied uncovertebral joints of C5-C6 chronically cause moderate bilateral neural foraminal stenosis. No fluid collection or hematoma in the neck. Thyroid gland is grossly normal. The visualized lung apices are normal. CT/CT cervical spine wo IV con IMPRESSION: * No acute imaging findings in the cervical spine compared to 12/01/2020. * Chronic disc degenerative change and uncovertebral joint hypertrophy at C5-C6, and chronic reversal of lordosis of the cervical spine above this degenerated level. The posterior disc osteophyte complex at C5-C6 chronically causes mild central canal stenosis.
--- NOTE | ~2022-06-13 | XR_ITS ---
EXAMINATION: XR CHEST CLINICAL INFORMATION: Left scapular pain radiating down left upper extremity COMPARISON: CXR from 12/01/2020 TECHNIQUE: 2 views of the chest were obtained. FINDINGS: Lungs are well-inflated and clear. Trachea is midline in position. No interstitial disease, consolidation or mass. No pleural effusion or pneumothorax. Cardiac silhouette and pulmonary vessels are normal in size. The mediastinum and sukhdeep have normal contour. The visualized bones, and upper abdomen, are unremarkable. XR/XR chest 2V IMPRESSION: No acute cardiopulmonary abnormality.
[2022-06-13 09:05] VITALS: BP 119/81; PULSE 68; RESP 18; TEMP 36.1; O2SAT 100; BMI 29.2
--- NOTE | 2022-06-13 09:34 | ECG_ITS ---
Test Reason : L arm pain Blood Pressure : / mmHG Vent. Rate : 056 BPM Atrial Rate : 056 BPM P-R Int : 158 ms QRS Dur : 080 ms QT Int : 410 ms P-R-T Axes : 069 050 033 degrees QTc Int : 395 ms Sinus bradycardia with sinus arrhythmia Otherwise normal ECG No previous ECGs available Referred By: Stephanie Willis Electronically Signed By:MARK SCHMIDT
--- NOTE | 2022-06-13 09:42 | ED_ITS ---
HPI - Extremity Problem General Chief complaint: Extremity Problem Stated complaint: Muscle spasm/L arm numbness Time Seen by Provider: 06/13/22 09:08 Source: patient Mode of arrival: ambulatory History of Present Illness HPI Narrative: 32-year-old female with a PMHx Asthma, muscle spasms, presenting to the ED c/o acute on chronic L sided neck/L scapular pain radiating down LUE with associated left arm numbness/tingling x1 week. Patient was seen and tx in our ED for similar sx on 05/16/22 and 05/22/22, taking Flexeril, Naproxen, Valium, and Oxycodone without much improvement. 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 Admits to migraines x 2mos. Denies visual changes/loss, fever, weakness, incontinence or retention, ear/mouth pain MD Complaint: extremity pain Onset (ago): week(s) Related Data Previous Rx's Medication Instructions Recorded ibuprofen 600 mg tablet 600 mg PO Q8H PRN pain #30 tabs 08/10/20 acetaminophen 500 mg tablet 1,000 mg PO QID PRN fever or pain 12/01/20 (Tylenol Extra Strength) #14 tabs naproxen 500 mg tablet 500 mg PO BID PRN pain #30 tabs 08/11/21 cyclobenzaprine 5 mg tablet 5 mg PO TID PRN neck pain 7 days 05/16/22 #21 tabs diazepam 2 mg tablet (Valium) 2 mg PO TID PRN muscle spasm #7 05/22/22 tabs oxycodone 5 mg tablet 5 mg PO TID PRN pain #6 tabs 05/22/22 acetaminophen 500 mg tablet 500 mg PO Q6H PRN fever or pain 06/13/22 (Tylenol Extra Strength) #14 tabs cyclobenzaprine 5 mg tablet 5 mg PO Q8H PRN pain (scale score 06/13/22 7-10) 5 days #14 tabs lidocaine 5 % topical patch 1 patch topical DAILY PRN pain #30 06/13/22 (Lidoderm) ea naproxen 500 mg tablet 500 mg PO BID PRN pain 10 days #20 06/13/22 tabs prednisone 20 mg tablet 40 mg PO DAILY 5 days #10 tabs 06/13/22 Allergies Allergy/AdvReac Type Severity Reaction Status Date / Time No Known Allergies Allergy Verified 09/21/20 13:54 Review of Systems Review of Systems: Constitutional: No Fever, No Chills,No Fatigue, No Malaise ENT/Mouth: No Ear Pain, No Nasal Congestion, No Sinus Pain, No sore throat, No Rhinorrhea, No Swallowing Difficulty Eyes: No Eye Pain, No Swelling, No Redness, No Vision Changes Cardiovascular: No Chest Pain, No SOB, No Edema, No Palpitations Respiratory: No Cough, No Sputum, No Dyspnea Gastrointestinal: No Nausea, No Vomiting, No Diarrhea, No Abdominal pain Genitourinary: No Dysuria, No Urinary Frequency, No Hematuria, No Urinary Incontinence/retention, No Urgency, No Flank Pain, No Urinary Flow Changes, No Hesitancy Musculoskeletal: + joint pain, No Myalgias, No Joint Swelling Skin: No Skin Lesions, No rash Neuro: No Weakness, + Numbness, + Paresthesias, No Dizziness, + Headache Yes all other systems are reviewed and are negative Constitutional: Constitutional: Reports as per [facility] Past Medical History Attestation statement: The following information was validated with the patient. Medical History Asthma No known health problems Surgical History History of salpingectomy History of tonsillectomy Social History Social History Alcohol intake: never Substance Use Type: Marijuana Advance Directives: No Advance Directives Information Provided: Yes Sexual orientation: Straight/Heterosexual Gender identity: Female Physical Exam Vital Signs: Vital Signs: Last Vital Signs Temp 97 F 06/13/22 09:05 Pulse 68 06/13/22 09:05 Resp 18 06/13/22 09:05 BP 119/81 06/13/22 09:05 Pulse Ox 100 06/13/22 09:05 O2 Del Method 06/13/22 09:05 BMI result Body Mass Index 29.2 Const: General: cooperative, healthy appearing, comfortable, no acute distress and well developed Orientation/consciousness: patient oriented x3 Limitations: no limitations HEENT: Head: Yes normal to inspection and Yes atraumatic Ears: hearing grossly normal bilaterally, external ears normal and TM's normal bilaterally General nose exam: Normal external nose present Face and sinus: Yes normal facial exam Mouth: Normal oral and palatal mucosa present Throat: Yes posterior oropharynx normal, Yes tonsils normal, Yes uvula midline, No abnormal tonsil, No uvula laterally displaced and No uvular edema Eyes: General: appearance normal, both eyes and all related structures EOM: EOMs intact bilaterally Neck: Other: No midline cervical spinous tenderness. Left trapezius muscle tenderness/tightness Neck: Yes normal visual inspection, Yes full ROM, Yes no meningeal signs and No anterior neck swelling Resp: Effort & Inspection: normal respiratory effort and no respiratory distress Cardio: Rate: regular rate Heart sounds: S1 normal heart sound present and S2 normal heart sound present Back/Spine/Pelvis: Other: No midline thoracic/lumbar spinous tenderness/step-off or deformity. + left scapular tenderness to palpation, no underlying rash/erythema Skin: Rashes: no rashes Wounds: no wounds Neuro: General: patient oriented x3, gait normal, tone normal, moves all extremities, no meningeal signs, no focal motor deficits and CN's II-XI intact bilaterally Gait exam (Neuro): Normal gait present Motor exam (neuro): 5/5 motor strength present throughout Extrem: General: Yes normal to inspection Course Course Course Narrative: XR chest 2V IMPRESSION: No acute cardiopulmonary abnormality. CT cervical spine wo IV con IMPRESSION: *? No acute imaging findings in the cervical spine compared to 12/01/2020. *? Chronic disc degenerative change and uncovertebral joint hypertrophy at C5-C6, and chronic reversal of lordosis of the cervical spine above this degenerated level. The posterior disc osteophyte complex at C5-C6 chronically causes mild central canal stenosis. Results discussed with patient including worrisome signs and symptoms and strict return precautions, and when to return to the emergency department. They verbalized understanding and feel safe for discharge at this time. MDM - Extremity (Nontraumatic) MDM Narrative Medical decision making narrative: 32-year-old female with a PMHx Asthma, muscle spasms, presenting to the ED c/o acute on chronic L sided neck/L scapular pain radiating down LUE with associated left arm numbness/tingling x1 week. On exam VSS, NAD, well appearing, no midline spinous ttp, no red flag sx, +L scapular and L trapezius muscle ttp. No rashes, no cellulitis. NV intact. Concern for MSK pain vs spasming vs costochondritis vs radiculopathy. Low suspicion for cervical dissection, CVT or cord compression. R/o PNA. Plan: IM Toradol, CXR, Cervical CT Medical Records Attestation: I reviewed the patient's medical records. Lab Data Attestation: I reviewed the patient's lab results. Discharge Plan Discharge Clinical Impression: Pain of left scapula, Radiculopathy Patient Disposition: Home, Self-Care Instructions: Back Pain (ED), Chronic Neck Pain (DC) Additional Instructions: Your imaging studies do not show any acute findings. Please follow-up with your primary care doctor as well as Neurosurgery as needed. Your pain is likely musculoskeletal Prednisone as a steroid which help with inflammation/pain Flexeril is a muscle relaxer, take at night as it makes you drowsy, do not drive, drink alcohol, or operate machinery while taking it Naproxen as an anti-inflammatory / pain medication, take with food Lidoderm patches are numbing patches, apply to painful area In addition take Tylenol at home If symptoms persist or worsen, pain becomes unbearable, you developed urinary retention or incontinence, or weakness return to the ED Prescriptions: New prednisone 20 mg tablet 40 mg PO DAILY 5 Days Qty: 10 0RF acetaminophen [Tylenol Extra Strength] 500 mg tablet 500 mg PO Q6H PRN (Reason: fever or pain) Qty: 14 0RF lidocaine [Lidoderm] 5 % adhesive patch,medicated 1 patch topical DAILY MDD remove after 12 hours PRN (Reason: pain) Qty: 30 0RF Rx Instructions: leave on most painful area for up to 12 hrs naproxen 500 mg tablet 500 mg PO BID PRN (Reason: pain) 10 Days Qty: 20 0RF cyclobenzaprine 5 mg tablet 5 mg PO Q8H PRN (Reason: pain (scale score 7-10)) 5 Days Qty: 14 0RF No Action ibuprofen 600 mg tablet 600 mg PO Q8H PRN (Reason: pain) Qty: 30 0RF Hold Instructions: Resume on 05/17/22. acetaminophen [Tylenol Extra Strength] 500 mg tablet 1,000 mg PO QID PRN (Reason: fever or pain) Qty: 14 0RF naproxen 500 mg tablet 500 mg PO BID PRN (Reason: pain) Qty: 30 0RF Hold Instructions: Resume on 05/17/22. cyclobenzaprine 5 mg tablet 5 mg PO TID PRN (Reason: neck pain) 7 Days Qty: 21 0RF oxycodone 5 mg tablet 5 mg PO TID PRN (Reason: pain) Qty: 6 0RF Rx Instructions: Partial Fill upon patient request. diazepam [Valium] 2 mg tablet 2 mg PO TID PRN (Reason: muscle spasm) Qty: 7 0RF Referrals: Bhavana Morrow MD [Primary Care Provider] - 1 week Tammy Esqueda MD [Physician] - (as needed) Stand Alone Forms: Work/School Release
[2022-06-13] MEDS: Ketorolac Tromethamine 30 MG/ML VIAL IM (09:45)
== END 2022-06-13 11:57 | disposition home or self-care (01) ==
PROVIDERS: Emergency Provider Emergency Medicine; PCP Internal Medicine
DX: M25.512 Pain in left shoulder (principal); M54.12 Radiculopathy, cervical region; R20.0 Anesthesia of skin
CPT/HCPCS: 71046; 72125; 93005; 96372; 99283; 99284; J1885

== ENCOUNTER 2022-09-17 19:43 | Emergency (ER) | payer OTHER, SELFPAY ==
[2022-09-17 19:58] VITALS: BP 127/75; PULSE 88; RESP 20; TEMP 36.6; O2SAT 99; BMI 28.3
--- NOTE | 2022-09-17 19:59 | ED.GENADULT ---
HPI - General Adult General Chief complaint: Headache <ALLI Franco - Last Filed: 09/17/22 20:00> Stated complaint: migraine <ALLI Franco - Last Filed: 09/17/22 20:00> Time Seen by Provider: 09/17/22 20:10 <ALLI Franco - Last Filed: 09/17/22 20:00> Source: patient <Perlita Candelaria NP - Last Filed: 09/18/22 04:17> Mode of arrival: ambulatory <Perlita Candelaria NP - Last Filed: 09/18/22 04:17> Limitations: no limitations <Perlita Candelaria NP - Last Filed: 09/18/22 04:17> History of Present Illness HPI narrative: 32-year-old female presents with 1 day of migraine headaches. She does have a history of migraines in the past, has taken her Topamax today with poor effect. Patient has photosensitivity, sound sensitivity, nausea, and vomiting. She states that this headache feels like other migraine headaches. <Perlita Candelaria NP - Last Filed: 09/18/22 04:17> Onset (ago): day(s) (1) <Perlita Candelaria NP - Last Filed: 09/18/22 04:17> Location: head <Perlita Candelaria NP - Last Filed: 09/18/22 04:17> Radiation: non-radiation <Perlita Candelaria NP - Last Filed: 09/18/22 04:17> Severity: severe <Perlita Candelaria NP - Last Filed: 09/18/22 04:17> Severity scale (1-10): 10 <Perlita Candelaria NP - Last Filed: 09/18/22 04:17> Quality: aching and constant <Perlita Candelaria NP - Last Filed: 09/18/22 04:17> Pain Consistency: constant <Perlita Candelaria NP - Last Filed: 09/18/22 04:17> Relieving factors: none <Perlita Candelaria NP - Last Filed: 09/18/22 04:17> Exacerbating factors: movement and other (Light, sound) <Perlita Candelaria NP - Last Filed: 09/18/22 04:17> Associated symptoms: nausea/vomiting <Perlita Candelaria, [employer] - Last Filed: 09/18/22 04:17> Treatments prior to arrival: NSAID and other (Topamax) <Perlita Candelaria [employer] - Last Filed: 09/18/22 04:17> Related Data Home medications: Previous Rx's Medication Instructions Recorded ibuprofen 600 mg tablet 600 mg PO Q8H PRN pain #30 tabs 08/10/20 acetaminophen 500 mg tablet 1,000 mg PO QID PRN fever or pain 12/01/20 (Tylenol Extra Strength) #14 tabs naproxen 500 mg tablet 500 mg PO BID PRN pain #30 tabs 08/11/21 cyclobenzaprine 5 mg tablet 5 mg PO TID PRN neck pain 7 days 05/16/22 #21 tabs diazepam 2 mg tablet (Valium) 2 mg PO TID PRN muscle spasm #7 05/22/22 tabs oxycodone 5 mg tablet 5 mg PO TID PRN pain #6 tabs 05/22/22 acetaminophen 500 mg tablet 500 mg PO Q6H PRN fever or pain 06/13/22 (Tylenol Extra Strength) #14 tabs cyclobenzaprine 5 mg tablet 5 mg PO Q8H PRN pain (scale score 06/13/22 7-10) 5 days #14 tabs lidocaine 5 % topical patch 1 patch topical DAILY PRN pain #30 06/13/22 (Lidoderm) ea naproxen 500 mg tablet 500 mg PO BID PRN pain 10 days #20 06/13/22 tabs prednisone 20 mg tablet 40 mg PO DAILY 5 days #10 tabs 06/13/22 xdqilskdqg-vwzjbevscqlyl-biwopjlq 2 cap PO Q4-6H PRN migraine 09/17/22 50 mg-300 mg-40 mg capsule headache #14 caps (Fioricet) ondansetron 4 mg disintegrating 4 mg PO Q8H PRN nausea and 09/17/22 tablet vomiting #20 tabs <ALLI Franco - Last Filed: 09/17/22 20:00> Allergies/adverse reactions: Allergies Allergy/AdvReac Type Severity Reaction Status Date / Time No Known Allergies Allergy Verified 09/17/22 20:02 <ALLI Franco - Last Filed: 09/17/22 20:00> Review of Systems Review of Systems: Constitutional: No Fever, No Chills Cardiovascular: No Chest Pain, No SOB Respiratory: No Cough, No Dyspnea Gastrointestinal: Positive Nausea, positive Vomiting, No Diarrhea, No abdominal Pain Genitourinary: No Dysuria, No Hematuria Musculoskeletal: No joint pain, No Myalgias, No Joint Swelling Skin: No Skin lacerations, No rash Neuro: No Weakness, No Numbness, No Paresthesias, No Dizziness, positive migraine Headache <Perlita Candelaria NP - Last Filed: 09/18/22 04:17> Yes all other systems are reviewed and are negative <Perlita Candelaria NP - Last Filed: 09/18/22 04:17> [facility] Past Medical History Attestation statement: The following information was validated with the patient. <Perlita Candelaria NP - Last Filed: 09/18/22 04:17> Source: old records reviewed <Perlita Candelaria NP - Last Filed: 09/18/22 04:17> Medical History: Medical History Asthma No known health problems <ALLI Franco - Last Filed: 09/17/22 20:00> Surgical History: Surgical History History of salpingectomy History of tonsillectomy <ALLI Franco - Last Filed: 09/17/22 20:00> Social History Social History: Social History Alcohol intake: never Substance Use Type: Marijuana Advance Directives: No Advance Directives Information Provided: Yes Sexual orientation: Straight/Heterosexual Gender identity: Female <ALLI Franco - Last Filed: 09/17/22 20:00> Physical Exam ED Vital Signs: Vital Signs - 24 hr 09/17/22 19:58 Temperature 98 F Pulse Rate 88 Respiratory Rate 20 Blood Pressure 127/75 Pulse Oximetry 99 Oxygen Delivery Method Room Air BMI result Body Mass Index 28.3 <ALLI Franco Last Filed: 09/17/22 20:00> Vital Signs - 24 hr 09/17/22 19:58 Temperature 98 F Pulse Rate 88 Respiratory Rate 20 Blood Pressure 127/75 Pulse Oximetry 99 Oxygen Delivery Method Room Air BMI result Body Mass Index 28.3 <Perlita Candelaria NP - Last Filed: 09/18/22 04:17> Appearance: Alert. Oriented X3. Moderate distress. Eyes: Pupils equal, round and reactive to light. Photosensitivity ENT: Pharynx normal. Neck: Normal inspection. Neck supple. No nuchal rigidity. No vertebral tenderness. No mastoid tenderness. CVS: Normal heart rate and rhythm. Pulses normal. Respiratory: No respiratory distress. Breath sounds normal. Abdomen: Soft and nontender. Skin: Skin warm and dry. Normal skin color. Normal skin turgor. Extremities: No lower extremity edema. Gait well-balanced well coordinated. Neuro: No motor deficit. No sensory deficit. Cranial nerves 2-12 intact. <Perlita Candelaria NP - Last Filed: 09/18/22 04:17> Course Course Course Narrative: RME performed by Joyce Morales PA-C. Patient is a 32 year old female presenting to the emergency department with a migraine. Patient states that this feels similar to previous migraines. Patient placed back in the waiting room pending room availability. <ALLI Franco Last Filed: 09/17/22 20:00> RME performed by Joyce Morales PA-C. Patient is a 32 year old female presenting to the emergency department with a migraine. Patient states that this feels similar to previous migraines. Patient placed back in the waiting room pending room availability. 32-year-old female presents with migraine headache, feels like prior migraines in the past. Unrelieved by Topamax. Patient looks visibly uncomfortable, is photosensitive and sound sensitive. Will order dexamethasone, Reglan, Benadryl, sumatriptan, fluids and Toradol. [place]any coma scale 15. Appears nontoxic and is afebrile. No indication of meningitis 21:27 patient states to feel better. Will provide prescription for migraine medications. Patient would like a little more time to rest. I did discuss options with patient, plan is for Fioricet prescription, patient will follow-up with primary care physician for neurology referral if migraines are persistent. Patient verbalized understanding of and agrees plan of care discharge home. Verbalized understanding of signs symptoms indicate a need for emergent intervention <Perlita Candelaria NP - Last Filed: 09/18/22 04:17> Medications Administered Discontinued Medications Generic Name Dose Route Start Last Admin Trade Name Carlton PRN Reason Stop Dose Admin Dexamethasone Sodium Phosphate 6 mg 09/17/22 20:27 09/17/22 20:45 Dexamethasone Sod Phosphate 4 Mg/Ml Vial IVPUSH 09/17/22 20:28 6 mg ONCE ONE Administration Diphenhydramine HCl 25 mg 09/17/22 20:27 09/17/22 20:45 Diphenhydramine Hcl 50 Mg/Ml Vial IVPUSH 09/17/22 20:28 25 mg ONCE ONE Administration Sodium Chloride 1,000 mls @ 999 mls/hr 09/17/22 20:30 09/17/22 20:45 Ns IVCONT 09/17/22 21:30 999 mls/hr .Q1H1M EMILIE Administration Ketorolac Tromethamine 15 mg 09/17/22 20:27 09/17/22 20:45 Ketorolac Tromethamine 15 Mg/Ml Vial IVPUSH 09/17/22 20:28 15 mg ONCE ONE Administration Metoclopramide HCl 10 mg 09/17/22 20:29 09/17/22 20:46 Metoclopramide Hcl 10 Mg/2 Ml Vial IVPUSH 09/17/22 20:30 10 mg ONCE ONE Administration Sumatriptan Succinate 6 mg 09/17/22 20:27 09/17/22 20:46 Sumatriptan Succinate 6 Mg/0.5 Ml Vial SUBCUT 09/17/22 20:28 6 mg ONCE ONE Administration <ALLI Franco - Last Filed: 09/17/22 20:00> Medications Administered Discontinued Medications Generic Name Dose Route Start Last Admin Trade Name Carlton PRN Reason Stop Dose Admin Dexamethasone Sodium Phosphate 6 mg 09/17/22 20:27 09/17/22 20:45 Dexamethasone Sod Phosphate 4 Mg/Ml Vial IVPUSH 09/17/22 20:28 6 mg ONCE ONE Administration Diphenhydramine HCl 25 mg 09/17/22 20:27 09/17/22 20:45 Diphenhydramine Hcl 50 Mg/Ml Vial IVPUSH 09/17/22 20:28 25 mg ONCE ONE Administration Sodium Chloride 1,000 mls @ 999 mls/hr 09/17/22 20:30 09/17/22 20:45 Ns IVCONT 09/17/22 21:30 999 mls/hr .Q1H1M EMILIE Administration Ketorolac Tromethamine 15 mg 09/17/22 20:27 09/17/22 20:45 Ketorolac Tromethamine 15 Mg/Ml Vial IVPUSH 09/17/22 20:28 15 mg ONCE ONE Administration Metoclopramide HCl 10 mg 09/17/22 20:29 09/17/22 20:46 Metoclopramide Hcl 10 Mg/2 Ml Vial IVPUSH 09/17/22 20:30 10 mg ONCE ONE Administration Sumatriptan Succinate 6 mg 09/17/22 20:27 09/17/22 20:46 Sumatriptan Succinate 6 Mg/0.5 Ml Vial SUBCUT 09/17/22 20:28 6 mg ONCE ONE Administration <Perlita Candelaria NP - Last Filed: 09/18/22 04:17> Medical Decision Making Differential Diagnosis Differential Diagnoses: The differential diagnosis associated with the presentation includes <Perlita Candelaria NP - Last Filed: 09/18/22 04:17> Migraine <Perlita Candelaria NP - Last Filed: 09/18/22 04:17> External Record Review External record reviewed: Outpatient record and Prior outpatient labs <KATINA Saul Last Filed: 09/18/22 04:17> Prescription Management I considered prescription management with: Pain Medication <Perlita Candelaria NP - Last Filed: 09/18/22 04:17> Migraine medications <KATINA Saul Last Filed: 09/18/22 04:17> Discharge Plan Discharge Clinical Impression: Migraine <ALLI Franco - Last Filed: 09/17/22 20:00> Patient Disposition: Home, Self-Care <ALLI Franco - Last Filed: 09/17/22 20:00> Instructions: Migraine Headache (ED) <ALLI Franco - Last Filed: 09/17/22 20:00> Additional Instructions: You were evaluated for migraine headache. I prescribed Fioricet. Please take this medication as directed. For nausea I prescribed Zofran. This medication dissolves under the tongue. Please take this medication as prescribed. Drink plenty of fluids. Follow-up with primary care provider. If migraines continue you may need to follow-up with neurology. Thank you for choosing this emergency department for evaluation. Please follow-up with primary care physician as needed. Return to the emergency department for any new, concerning, or worsening symptoms. <ALLI Franco - Last Filed: 09/17/22 20:00> Prescriptions: New mwxdwpbqxq-cfbbkgjxaupkf-yxex [Fioricet] 50-300-40 mg capsule 2 cap PO Q4-6H PRN (Reason: migraine headache) Qty: 14 0RF Rx Instructions: do not exceed 6 caps per day. May substitute for medication equivalent excepted by patient's insurance. ondansetron 4 mg tablet,disintegrating 4 mg PO Q8H PRN (Reason: nausea and vomiting) Qty: 20 0RF No Action ibuprofen 600 mg tablet 600 mg PO Q8H PRN (Reason: pain) Qty: 30 0RF Hold Instructions: Resume on 05/17/22. acetaminophen [Tylenol Extra Strength] 500 mg tablet 1,000 mg PO QID PRN (Reason: fever or pain) Qty: 14 0RF naproxen 500 mg tablet 500 mg PO BID PRN (Reason: pain) Qty: 30 0RF Hold Instructions: Resume on 05/17/22. cyclobenzaprine 5 mg tablet 5 mg PO TID PRN (Reason: neck pain) 7 Days Qty: 21 0RF oxycodone 5 mg tablet 5 mg PO TID PRN (Reason: pain) Qty: 6 0RF Rx Instructions: Partial Fill upon patient request. diazepam [Valium] 2 mg tablet 2 mg PO TID PRN (Reason: muscle spasm) Qty: 7 0RF prednisone 20 mg tablet 40 mg PO DAILY 5 Days Qty: 10 0RF acetaminophen [Tylenol Extra Strength] 500 mg tablet 500 mg PO Q6H PRN (Reason: fever or pain) Qty: 14 0RF lidocaine [Lidoderm] 5 % adhesive patch,medicated 1 patch topical DAILY MDD remove after 12 hours PRN (Reason: pain) Qty: 30 0RF Rx Instructions: leave on most painful area for up to 12 hrs naproxen 500 mg tablet 500 mg PO BID PRN (Reason: pain) 10 Days Qty: 20 0RF cyclobenzaprine 5 mg tablet 5 mg PO Q8H PRN (Reason: pain (scale score 7-10)) 5 Days Qty: 14 0RF <ALLI Franco - Last Filed: 09/17/22 20:00> Interventions: ED Discharge Assessment Last Done: 09/17/22 23:09 <ALLI Franco - Last Filed: 09/17/22 20:00> Discharge Date/Time: 09/17/22 23:09 <ALLI Franco - Last Filed: 09/17/22 20:00>
[2022-09-17] MEDS: dexAMETHasone sod phosphate 4 MG/ML VIAL 6 MG IVPUSH (20:45)
[2022-09-17] MEDS: diphenhydrAMINE HCL 50 MG/ML VIAL 25 MG IVPUSH (20:45)
[2022-09-17] MEDS: Ketorolac Tromethamine 15 MG/ML VIAL IVPUSH (20:45)
[2022-09-17] MEDS: 0.9 % Sodium Chloride 1,000 ML 999 ML IVCONT (20:45)
[2022-09-17] MEDS: Metoclopramide HCl 10 MG/2 ML VIAL IVPUSH (20:46)
[2022-09-17] MEDS: SUMAtriptan succinate 6 MG/0.5 ML VIAL SUBCUT (20:46)
== END 2022-09-17 23:09 | disposition home or self-care (01) ==
PROVIDERS: Emergency Provider Emergency Medicine; PCP Internal Medicine
DX: G43.909 Migraine, unspecified, not intractable, without status migrainosus (principal); F12.90 Cannabis use, unspecified, uncomplicated
CPT/HCPCS: 96372; 96374; 96375; 99283; 99284; J1100; J1200; J1885; J2765; J3030

== ENCOUNTER 2023-01-17 13:36 | Emergency (ER) | payer OTHER, SELFPAY ==
[2023-01-17 13:51] VITALS: BP 98/62; PULSE 65; RESP 16; TEMP 36.2; O2SAT 99; BMI 30.7
--- NOTE | 2023-01-17 13:54 | ED_ITS ---
HPI - Extremity Injury (Lower) General Chief Complaint: Extremity Problem Stated Complaint: L toe pain Time Seen by Provider: 01/17/23 13:53 Source: patient, RN notes reviewed and old records reviewed Mode of arrival: ambulatory History of Present Illness HPI Narrative: 32-year-old female with no significant past medical history presenting to the ED complaining erythema and pain to left 4th toe x 2 days. Reports areas worsening. Denies fever, chills, drainage tick or insect bites MD complaint: foot injury Onset (ago): day(s) Related Data Previous Rx's Medication Instructions Recorded ibuprofen 600 mg tablet 600 mg PO Q8H PRN pain #30 tabs 08/10/20 acetaminophen 500 mg tablet 1,000 mg PO QID PRN fever or pain 12/01/20 (Tylenol Extra Strength) #14 tabs naproxen 500 mg tablet 500 mg PO BID PRN pain #30 tabs 08/11/21 cyclobenzaprine 5 mg tablet 5 mg PO TID PRN neck pain 7 days 05/16/22 #21 tabs diazepam 2 mg tablet (Valium) 2 mg PO TID PRN muscle spasm #7 05/22/22 tabs oxycodone 5 mg tablet 5 mg PO TID PRN pain #6 tabs 05/22/22 acetaminophen 500 mg tablet 500 mg PO Q6H PRN fever or pain 06/13/22 (Tylenol Extra Strength) #14 tabs cyclobenzaprine 5 mg tablet 5 mg PO Q8H PRN pain (scale score 06/13/22 7-10) 5 days #14 tabs lidocaine 5 % topical patch 1 patch topical DAILY PRN pain #30 06/13/22 (Lidoderm) ea naproxen 500 mg tablet 500 mg PO BID PRN pain 10 days #20 06/13/22 tabs prednisone 20 mg tablet 40 mg PO DAILY 5 days #10 tabs 06/13/22 awicndlnye-upltqhkfdeeia-qhehwvnj 2 cap PO Q4-6H PRN migraine 09/17/22 50 mg-300 mg-40 mg capsule headache #14 caps (Fioricet) ondansetron 4 mg disintegrating 4 mg PO Q8H PRN nausea and 09/17/22 tablet vomiting #20 tabs cephalexin 500 mg capsule 500 mg PO QID 7 days #28 caps 01/17/23 Allergies Allergy/AdvReac Type Severity Reaction Status Date / Time No Known Allergies Allergy Verified 09/17/22 20:02 Review of Systems Review of Systems: Constitutional: No Fever, No Chills ENT/Mouth: No Ear Pain, No Nasal Congestion, No sore throat, No Rhinorrhea, No Swallowing Difficulty Cardiovascular: No Chest Pain, No SOB Respiratory: No Cough Gastrointestinal: No Nausea, No Vomiting, No Abdominal pain Genitourinary: No Dysuria, No Urinary Frequency, No Hematuria Musculoskeletal: + joint pain, No Myalgias, No Joint Swelling Skin: +Skin Lesions, No rash Neuro: No Weakness, No Numbness, No Paresthesias Yes all other systems are reviewed and are negative Constitutional: Constitutional: Reports as per [facility] Past Medical History Attestation statement: The following information was validated with the patient. Source: old records reviewed Medical History Asthma No known health problems Surgical History History of salpingectomy History of tonsillectomy Social History Social History Alcohol intake: never Substance Use Type: Marijuana Sexual orientation: Straight/Heterosexual Gender identity: Female Physical Exam Vital Signs: Vital Signs: Last Vital Signs Temp 97.1 F 01/17/23 13:51 Pulse 65 01/17/23 13:51 Resp 16 01/17/23 13:51 BP 98/62 01/17/23 13:51 Pulse Ox 99 01/17/23 13:51 O2 Del Method Room Air 01/17/23 13:51 BMI result Body Mass Index 30.7 Const: General: cooperative, healthy appearing and no acute distress Luis entation/consciousness: patient oriented x3 Limitations: no limitations HEENT: Head: Yes normal to inspection and Yes atraumatic Ears: hearing grossly normal bilaterally General nose exam: Normal external nose present Face and sinus: Yes normal facial exam Eyes: General: appearance normal, both eyes and all related structures EOM: EOMs intact bilaterally Neck: Neck: Yes normal visual inspection and Yes no meningeal signs Resp: Effort & Inspection: normal respiratory effort and no respiratory distress Cardio: Rate: regular rate Peripheral pulses: Peripheral pulses 2+ throughout Skin: Rashes: no rashes Neuro: General: patient oriented x3, tone normal and no meningeal signs Gait exam (Neuro): Normal gait present Extrem: Other: +left 4th toe with mild swelling and erythema extending to distal foot. Mildly tender. No warmth. + small skin breakdown noted to lateral aspect of left toe. No fluctuance/induration or drainage. Not circumferential. No crepitus Medical Decision Making Medical Decision Making [facility] Narrative: 32-year-old female with no significant past medical history presenting to the ED complaining erythema and pain to left 4th toe x 2 days. On exam vital signs stable, NAD, nontoxic appearing physical exam as above. Evidence of skin breakdown with early cellulitis. No appreciable insect bites. No crepitus. No abscess. Lower suspicion for gout Plan: P.o. antibiotics, PCP follow-up Results discussed with patient including worrisome signs and symptoms and strict return precautions, and when to return to the emergency department. They verbalized understanding and feel safe for discharge at this time. Differential Diagnosis Differential Diagnoses: The differential diagnosis associated with the presentation includes As above Lab Data [facility] Lab Attestation statement: I reviewed the patient's lab results. Radiology Impression Discussion of test interpretation with radiology: I have reviewed the radiologist's reading. External Record Review External record reviewed: Inpatient record, Office record, Outpatient record, Prior outpatient labs, Prior outpatient radiology, Primary care record and Outside ED record Tests considered The following testing was considered but not selected: As above Discharge Plan Discharge Clinical Impression: Cellulitis Patient Disposition: Home, Self-Care Instructions: Cellulitis (DC) Additional Instructions: Keflex as an antibiotic please take as prescribed Keep a close eye on the area of redness is spreading, fever/chills return to the ED Prescriptions: New cephalexin 500 mg capsule 500 mg PO QID 7 Days Qty: 28 0RF No Action ibuprofen 600 mg tablet 600 mg PO Q8H PRN (Reason: pain) Qty: 30 0RF Hold Instructions: Resume on 05/17/22. acetaminophen [Tylenol Extra Strength] 500 mg tablet 1,000 mg PO QID PRN (Reason: fever or pain) Qty: 14 0RF naproxen 500 mg tablet 500 mg PO BID PRN (Reason: pain) Qty: 30 0RF Hold Instructions: Resume on 05/17/22. udbeifliem-tydpzfunruufj-xheu [Fioricet] 50-300-40 mg capsule 2 cap PO Q4-6H PRN (Reason: migraine headache) Qty: 14 0RF Rx Instructions: do not exceed 6 caps per day. May substitute for medication equivalent excepted by patient's insurance. ondansetron 4 mg tablet,disintegrating 4 mg PO Q8H PRN (Reason: nausea and vomiting) Qty: 20 0RF cyclobenzaprine 5 mg tablet 5 mg PO TID PRN (Reason: neck pain) 7 Days Qty: 21 0RF oxycodone 5 mg tablet 5 mg PO TID PRN (Reason: pain) Qty: 6 0RF Rx Instructions: Partial Fill upon patient request. diazepam [Valium] 2 mg tablet 2 mg PO TID PRN (Reason: muscle spasm) Qty: 7 0RF prednisone 20 mg tablet 40 mg PO DAILY 5 Days Qty: 10 0RF acetaminophen [Tylenol Extra Strength] 500 mg tablet 500 mg PO Q6H PRN (Reason: fever or pain) Qty: 14 0RF lidocaine [Lidoderm] 5 % adhesive patch,medicated 1 patch topical DAILY MDD remove after 12 hours PRN (Reason: pain) Qty: 30 0RF Rx Instructions: leave on most painful area for up to 12 hrs naproxen 500 mg tablet 500 mg PO BID PRN (Reason: pain) 10 Days Qty: 20 0RF cyclobenzaprine 5 mg tablet 5 mg PO Q8H PRN (Reason: pain (scale score 7-10)) 5 Days Qty: 14 0RF Referrals: Bhavana Morrow MD [Primary Care Provider] - Discharge Date/Time: 01/17/23 14:08
== END 2023-01-17 14:08 | disposition home or self-care (01) ==
LOC: HO.ED 14:05
PROVIDERS: Emergency Provider Emergency Medicine; PCP Internal Medicine
DX: L03.032 Cellulitis of left toe (principal); M79.675 Pain in left toe(s)
CPT/HCPCS: 99282; 99283

== ENCOUNTER 2023-06-18 12:10 | Emergency (ER) | payer OTHER, SELFPAY ==
[2023-06-18 12:13] VITALS: BP 147/69; PULSE 69; RESP 16; TEMP 36.5; O2SAT 99; BMI 32.1
--- NOTE | 2023-06-18 12:18 | ED.EXTPRO ---
HPI - Extremity Problem General Chief complaint: Extremity Injury, Upper Stated complaint: L hand inj Time Seen by Provider: 06/18/23 12:16 Source: patient Mode of arrival: ambulatory Limitations: no limitations History of Present Illness HPI Narrative: 33-year-old female ypcuh-qefa-blqfscai here with complaints of left hand pain after a shelf fell on her hand just prior to arrival. Patient denies any weakness, numbness, tingling of extremity. Related Data Previous Rx's Medication Instructions Recorded ibuprofen 600 mg tablet 600 mg PO Q8H PRN pain #30 tabs 08/10/20 acetaminophen 500 mg tablet 1,000 mg (2 x 500 mg) PO QID PRN 12/01/20 (Tylenol Extra Strength) fever or pain #14 tabs naproxen 500 mg tablet 500 mg PO BID PRN pain #30 tabs 08/11/21 cyclobenzaprine 5 mg tablet 5 mg PO TID PRN neck pain 7 days 05/16/22 #21 tabs diazepam 2 mg tablet (Valium) 2 mg PO TID PRN muscle spasm #7 05/22/22 tabs oxycodone 5 mg tablet 5 mg PO TID PRN pain #6 tabs 05/22/22 acetaminophen 500 mg tablet 500 mg PO Q6H PRN fever or pain 06/13/22 (Tylenol Extra Strength) #14 tabs cyclobenzaprine 5 mg tablet 5 mg PO Q8H PRN pain (scale score 06/13/22 7-10) 5 days #14 tabs lidocaine 5 % topical patch 1 patch topical DAILY PRN pain #30 06/13/22 (Lidoderm) ea naproxen 500 mg tablet 500 mg PO BID PRN pain 10 days #20 06/13/22 tabs prednisone 20 mg tablet 40 mg (2 x 20 mg) PO DAILY 5 days 06/13/22 #10 tabs cwarzotous-ucpcqzbcunixi-aflbvvzi 2 cap PO Q4-6H PRN migraine 09/17/22 50 mg-300 mg-40 mg capsule headache #14 caps (Fioricet) ondansetron 4 mg disintegrating 4 mg PO Q8H PRN nausea and 09/17/22 tablet vomiting #20 tabs cephalexin 500 mg capsule 500 mg PO QID 7 days #28 caps 01/17/23 Allergies Allergy/AdvReac Type Severity Reaction Status Date / Time No Known Allergies Allergy Verified 09/17/22 20:02 Review of Systems Review of Systems: Yes all other systems are reviewed and are negative Constitutional: Constitutional: Reports no additional constitutional complaints, Denies body ache(s), Denies chills, Denies fever(s), Denies headache(s) and Denies weakness Eyes: Eyes: Reports no additional eye complaints and Denies change in vision ENT: Reports system reviewed and no additional complaints, except as documented, Denies dizziness, Denies headache(s), Denies nasal congestion, Denies nasal discharge and Denies neck pain Cardiovascular: Cardiovascular: Reports no additional cardiovascular complaints, Denies chest pain, Denies leg edema and Denies dyspnea Respiratory: Respiratory: Reports no additional respiratory complaints, Denies cough and Denies dyspnea Gastrointestinal: Gastrointestinal: Reports no additional gastrointestinal complaints, Denies abdominal pain, Denies diarrhea, Denies nausea and Denies vomiting Genitourinary: Genitourinary: Reports no additional female genitourinary complaints and Denies urinary incontinence Musculoskeletal: Musculoskeletal: Reports no additional musculoskeletal complaints, Denies back pain, Reports arthralgias, Denies joint swelling, Denies limited range of motion, Denies neck pain, Denies numbness and Denies tingling Integumentary/Breasts: Skin/Breast: Reports system reviewed and no additional complaints, except as docu and Denies rash Neurologic: Reports system reviewed and no additional complaints, except as documented, Denies Abnormal speech present, Denies dizziness, Denies headache(s), Denies numbness, Denies tingling and Denies weakness PMFSH Past Medical History Attestation statement: The following information was validated with the patient. Source: old records reviewed and nursing notes reviewed Medical History Asthma No known health problems Surgical History History of salpingectomy History of tonsillectomy Social History Social History Alcohol intake: never Substance Use Type: Marijuana Advance Directives: No Sexual orientation: Straight/Heterosexual Gender identity: Female Physical Exam Vital Signs: Vital Signs: Last Vital Signs Temp 97.7 F 06/18/23 12:13 Pulse 69 10/08/23 12:13 Resp 16 06/18/23 12:13 BP 147/69 H 06/18/23 12:13 Pulse Ox 99 06/18/23 12:13 O2 Del Method Room Air 06/18/23 12:13 BMI result Body Mass Index 32.1 Const: General: cooperative, healthy appearing, comfortable and no acute distress Orientation/consciousness: patient oriented x3 Limitations: no limitations HEENT: Head: Yes normal to inspection Ears: hearing grossly normal bilaterally General nose exam: Normal external nose present Face and sinus: Yes normal facial exam Mouth: Normal oral and palatal mucosa present Throat: Yes posterior oropharynx normal Eyes: General: appearance normal, both eyes and all related structures Pupils: Equal, round and reactive pupils present Neck: Neck: Yes normal visual inspection Chest: Chest palpation & inspection: normal inspection of the chest Resp: Effort & Inspection: normal respiratory effort Auscultation: clear to auscultation bilaterally Cardio: Rate: regular rate Rhythm: regular rhythm Peripheral pulses: Peripheral pulses 2+ throughout GI: Inspection: Yes normal to inspection Palpation (GI): Soft to palpation and nontender Auscultation: normal bowel sounds Back/Spine/Pelvis: Thoracic/Lumbar Spine: thoracic and lumbar spine normal to inspection Skin: General skin exam: no rashes or lesions noted Neuro: General: patient oriented x3, no focal motor deficits and normal sensation to monofilament Cranial nerves: Yes Equal, round and reactive pupils present Cognition (Neuro): normal cognition Speech: No Abnormal speech present Gait exam (Neuro): Normal gait present Motor exam (neuro): 5/5 motor strength present throughout Extrem: Other: There is tenderness of the left dorsal hand. There is full active and passive range of motion of the hand of the wrist. There are normal radial and ulnar pulses. Normal distal sensation. No tenderness on palpation over the proximal joints. General: Yes normal to inspection Course Course Course Narrative: x-ray show no acute fracture. Likely contusion. Patient be discharged home with recommendations for supportive care and Bro wrap for comfort. Reviewed worrisome signs and symptoms of when to return to the emergency room. Comfortable plan for discharge home. Medications Administered Discontinued Medications Generic Name Dose Route Start Last Admin Trade Name Freq PRN Reason Stop Dose Admin Ibuprofen 600 mg 06/18/23 12:23 06/18/23 12:26 Ibuprofen 600 Mg Tablet PO 06/18/23 12:24 600 mg ONCE ONE Administration Medical Decision Making Medical Decision Making MDM Narrative: 33-year-old female bxaoq-esuc-zrmwozhp here with complaints of left hand pain after a shelf fell on her hand just prior to arrival. Patient denies any weakness, numbness, tingling of extremity. There is tenderness of the left dorsal hand. There is full active and passive range of motion of the hand of the wrist. There are normal radial and ulnar pulses. Normal distal sensation. No tenderness on palpation over the proximal joints. will obtain x-rays, analgesia Differential Diagnosis Differential Diagnoses: The differential diagnosis associated with the presentation includes fracture, contusion Independent Interpretation I performed an independent interpretation of an: Plain X-Ray Interpretation: I independently reviewed the x-ray and agreed with radiology report Radiology Impression Discussion of test interpretation with radiology: I have reviewed the radiologist's reading. Radiologist Impression: [address] [address] XRay Report Signed Patient: Tato Nieto MR#: [id number] : 1990 Acct:[id number] Age/Sex: 33 / F ADM Date: 06/18/23 Loc: HO.ED Attending Dr: Ordering Physician: Aurelio Lucero Date of Service: 06/18/23 Procedure(s): XR hand wrist LT Accession Number(s): [id number] cc: Bhavana Morrow MD; Aurelio Lucero~ EXAMINATION: XR WRIST, LEFT XR HAND, LEFT CLINICAL INFORMATION: Left hand pain, middle object fell on hand. COMPARISON: None available. TECHNIQUE: PA, lateral, and oblique views of the left wrist and PA, lateral, and oblique views of the left hand FINDINGS: LEFT WRIST: The bones and soft tissues are normal. No fracture. Alignment is anatomic. Joint spaces are maintained. No erosions or soft tissue calcifications. LEFT HAND: The bones and soft tissues are normal. No fracture. Alignment is anatomic. Joint spaces are maintained. No erosions or soft tissue calcifications. XR/XR hand wrist LT IMPRESSION: Unremarkable left hand and wrist. Prescription Management I considered prescription management with: Pain Medication Discharge Plan Discharge Clinical Impression: Contusion of hand, left Patient Disposition: Home, Self-Care Instructions: Contusion in Adults (ED) Additional Instructions: Ice to the area as needed Take Motrin or Tylenol for pain as needed Prescriptions: No Action ibuprofen 600 mg tablet 600 mg PO Q8H PRN (Reason: pain) Qty: 30 0RF Hold Instructions: Resume on 05/17/22. acetaminophen [Tylenol Extra Strength] 500 mg tablet 1,000 mg PO QID PRN (Reason: fever or pain) Qty: 14 0RF naproxen 500 mg tablet 500 mg PO BID PRN (Reason: pain) Qty: 30 0RF Hold Instructions: Resume on 05/17/22. ldnypfaetj-pwmxiemqceesu-xnoe [Fioricet] 50-300-40 mg capsule 2 cap PO Q4-6H PRN (Reason: migraine headache) Qty: 14 0RF Rx Instructions: do not exceed 6 caps per day. May substitute for medication equivalent excepted by patient's insurance. ondansetron 4 mg tablet,disintegrating 4 mg PO Q8H PRN (Reason: nausea and vomiting) Qty: 20 0RF cyclobenzaprine 5 mg tablet 5 mg PO TID PRN (Reason: neck pain) 7 Days Qty: 21 0RF oxycodone 5 mg tablet 5 mg PO TID PRN (Reason: pain) Qty: 6 0RF Rx Instructions: Partial Fill upon patient request. diazepam [Valium] 2 mg tablet 2 mg PO TID PRN (Reason: muscle spasm) Qty: 7 0RF prednisone 20 mg tablet 40 mg PO DAILY 5 Days Qty: 10 0RF acetaminophen [Tylenol Extra Strength] 500 mg tablet 500 mg PO Q6H PRN (Reason: fever or pain) Qty: 14 0RF lidocaine [Lidoderm] 5 % adhesive patch,medicated 1 patch topical DAILY MDD remove after 12 hours PRN (Reason: pain) Qty: 30 0RF Rx Instructions: leave on most painful area for up to 12 hrs naproxen 500 mg tablet 500 mg PO BID PRN (Reason: pain) 10 Days Qty: 20 0RF cyclobenzaprine 5 mg tablet 5 mg PO Q8H PRN (Reason: pain (scale score 7-10)) 5 Days Qty: 14 0RF cephalexin 500 mg capsule 500 mg PO QID 7 Days Qty: 28 0RF Referrals: Bhavana Morrow MD [Primary Care Provider] - 1 week (for any continued symptoms )
--- NOTE | 2023-06-18 12:22 | ED.GENADULT ---
HPI - General Adult General Chief complaint: Extremity Injury, Upper Stated complaint: L hand inj Time Seen by Provider: 06/18/23 12:16 Source: patient Mode of arrival: ambulatory Limitations: no limitations History of Present Illness HPI narrative: Seen by KATINA Blanchard. Related Data Previous Rx's Medication Instructions Recorded ibuprofen 600 mg tablet 600 mg PO Q8H PRN pain #30 tabs 08/10/20 acetaminophen 500 mg tablet 1,000 mg (2 x 500 mg) PO QID PRN 12/01/20 (Tylenol Extra Strength) fever or pain #14 tabs naproxen 500 mg tablet 500 mg PO BID PRN pain #30 tabs 08/11/21 cyclobenzaprine 5 mg tablet 5 mg PO TID PRN neck pain 7 days 05/16/22 #21 tabs diazepam 2 mg tablet (Valium) 2 mg PO TID PRN muscle spasm #7 05/22/22 tabs oxycodone 5 mg tablet 5 mg PO TID PRN pain #6 tabs 05/22/22 acetaminophen 500 mg tablet 500 mg PO Q6H PRN fever or pain 06/13/22 (Tylenol Extra Strength) #14 tabs cyclobenzaprine 5 mg tablet 5 mg PO Q8H PRN pain (scale score 06/13/22 7-10) 5 days #14 tabs lidocaine 5 % topical patch 1 patch topical DAILY PRN pain #30 06/13/22 (Lidoderm) ea naproxen 500 mg tablet 500 mg PO BID PRN pain 10 days #20 06/13/22 tabs prednisone 20 mg tablet 40 mg (2 x 20 mg) PO DAILY 5 days 06/13/22 #10 tabs zgxiynyjmc-vadhsoysolrda-lxodoxdy 2 cap PO Q4-6H PRN migraine 09/17/22 50 mg-300 mg-40 mg capsule headache #14 caps (Fioricet) ondansetron 4 mg disintegrating 4 mg PO Q8H PRN nausea and 09/17/22 tablet vomiting #20 tabs cephalexin 500 mg capsule 500 mg PO QID 7 days #28 caps 01/17/23 Allergies Allergy/AdvReac Type Severity Reaction Status Date / Time No Known Allergies Allergy Verified 09/17/22 20:02 [facility] Past Medical History Medical History Asthma No known health problems Surgical History History of salpingectomy History of tonsillectomy Social History Social History Alcohol intake: never Substance Use Type: Marijuana Advance Directives: No Sexual orientation: Straight/Heterosexual Gender identity: Female Physical Exam ED Vital Signs: Vital Signs - 24 hr 06/18/23 12:13 Temperature 97.7 F Pulse Rate 69 Respiratory Rate 16 Blood Pressure 147/69 H Pulse Oximetry 99 Oxygen Delivery Method Room Air BMI result Body Mass Index 32.1 Course Course Course Narrative: RME: 33 yold female presents for left wrist pain after metal object fell on hand. patient states no trauma. xray ordreed Medications Administered Discontinued Medications Generic Name Dose Route Start Last Admin Trade Name Freq PRN Reason Stop Dose Admin Ibuprofen 600 mg 06/18/23 12:23 06/18/23 12:26 Ibuprofen 600 Mg Tablet PO 06/18/23 12:24 600 mg ONCE ONE Administration Discharge Plan Discharge Clinical Impression: Contusion of hand, left Patient Disposition: Home, Self-Care Instructions: Contusion in Adults (ED) Additional Instructions: Ice to the area as needed Take Motrin or Tylenol for pain as needed Prescriptions: No Action ibuprofen 600 mg tablet 600 mg PO Q8H PRN (Reason: pain) Qty: 30 0RF Hold Instructions: Resume on 05/17/22. acetaminophen [Tylenol Extra Strength] 500 mg tablet 1,000 mg PO QID PRN (Reason: fever or pain) Qty: 14 0RF naproxen 500 mg tablet 500 mg PO BID PRN (Reason: pain) Qty: 30 0RF Hold Instructions: Resume on 05/17/22. rqnkmlzway-jxlabategyryh-sncp [Fioricet] 50-300-40 mg capsule 2 cap PO Q4-6H PRN (Reason: migraine headache) Qty: 14 0RF Rx Instructions: do not exceed 6 caps per day. May substitute for medication equivalent excepted by patient's insurance. ondansetron 4 mg tablet,disintegrating 4 mg PO Q8H PRN (Reason: nausea and vomiting) Qty: 20 0RF cyclobenzaprine 5 mg tablet 5 mg PO TID PRN (Reason: neck pain) 7 Days Qty: 21 0RF oxycodone 5 mg tablet 5 mg PO TID PRN (Reason: pain) Qty: 6 0RF Rx Instructions: Partial Fill upon patient request. diazepam [Valium] 2 mg tablet 2 mg PO TID PRN (Reason: muscle spasm) Qty: 7 0RF prednisone 20 mg tablet 40 mg PO DAILY 5 Days Qty: 10 0RF acetaminophen [Tylenol Extra Strength] 500 mg tablet 500 mg PO Q6H PRN (Reason: fever or pain) Qty: 14 0RF lidocaine [Lidoderm] 5 % adhesive patch,medicated 1 patch topical DAILY MDD remove after 12 hours PRN (Reason: pain) Qty: 30 0RF Rx Instructions: leave on most painful area for up to 12 hrs naproxen 500 mg tablet 500 mg PO BID PRN (Reason: pain) 10 Days Qty: 20 0RF cyclobenzaprine 5 mg tablet 5 mg PO Q8H PRN (Reason: pain (scale score 7-10)) 5 Days Qty: 14 0RF cephalexin 500 mg capsule 500 mg PO QID 7 Days Qty: 28 0RF Referrals: Bhavana Morrow MD [Primary Care Provider] - 1 week (for any continued symptoms ) Interventions: ED Discharge Assessment Last Done: 06/18/23 13:04 Discharge Date/Time: 06/18/23 13:07
== END 2023-06-18 13:07 | disposition home or self-care (01) ==
PROVIDERS: Emergency Provider Emergency Medicine; PCP Internal Medicine
DX: S60.222A Contusion of left hand, initial encounter (principal); M25.532 Pain in left wrist; X58.XXXA Exposure to other specified factors, initial encounter; Y93.9 Activity, unspecified; Y92.9 Unspecified place or not applicable; Y99.9 Unspecified external cause status
CPT/HCPCS: 73110; 73130; 99283

== ENCOUNTER 2023-11-04 22:29 | Emergency (ER) | payer OTHER, SELFPAY ==
[2023-11-04 22:36] VITALS: BP 118/72; PULSE 79; RESP 16; TEMP 36.6; O2SAT 98; BMI 29.2
[2023-11-04 22:43] VITALS: BP 124/69; PULSE 78; RESP 14; TEMP 37; O2SAT 97
[2023-11-04 23:17] LABS: MANUAL DIFF FLAG NO
[2023-11-04 23:18] LABS: Basophils Absolute Auto 0.1 X10*3/uL (0.0-0.2); Basophils Percent Auto 0.5 % (0-2); Eosinophils Absolute Auto 0.1 X10*3/uL (0.0-0.4); Eosinophils Percent Auto 0.8 % (0-4); Hematocrit 35.4 % (37.0-47.0); Hemoglobin 12.2 g/dl (12.0-16.0); Imm Gran Abs Auto 0.04 X10*3/uL (0.00-0.03); Imm Gran Pct Auto 0.4 % (0.0-0.4); Lymphocytes Absolute Auto 2.5 X10*3/uL (1.2-4.9); Lymphocytes Percent Auto 22.8 % (20-40); Mean Corpuscular HGB Conc 34.5 g/dl (31.0-35.0); Mean Corpuscular Hemoglobin 29.4 pg (27.0-33.0); Mean Corpuscular Volume 85.3 fL (80.0-98.0); Mean Platelet Volume 9.9 fL (9.4-12.3); Monocytes Absolute Auto 0.9 X10*3/uL (0.1-1.2); Monocytes Percent Auto 8.2 % (2-11); Neutrophils Absolute Auto 7.4 x10*3/uL (2.0-8.3); Neutrophils Percent Auto 67.3 % (45-73); Platelet Count 288 X10*3/uL (160-400); Red Blood Count 4.15 X10*6/uL (4.20-5.50)
[2023-11-04 23:20] LABS: Appearance Urine Cloudy; Color Urine Yellow; Glucose Urine UA Negative (Negative); Leukocyte Esterase Urine Moderate (2+) (Negative); Nitrite Urine Negative (Negative); PH 7.5 (5.0-9.0); Specific Gravity - Urine 1.025 (1.005-1.025); UMIC TRIGGER UACC YES; UPreg QC Valid YES; Urine Blood Negative (Negative); Urine Ketones Negative (Negative); Urine Pregnancy NEGATIVE (NEGATIVE); Urine Protein Negative (Neg-Trace)
[2023-11-04 23:32] LABS: Bacteria Urine 1+ (None Seen); Hyaline Casts Urine 0-2 /LPF (0-2); Squamous Epithelial Cell Urine 0-2 /HPF (0-2); WBC Urine 0-5 /HPF (0-5)
--- NOTE | 2023-11-04 23:54 | ED.GENADULT ---
HPI - General Adult General Chief complaint: General Medical Stated complaint: Dizziness/Nose bleed Time Seen by Provider: 11/04/23 22:52 Source: patient, RN notes reviewed and old records reviewed Mode of arrival: ambulatory Limitations: no limitations History of Present Illness HPI narrative: 33-year-old female presents for evaluation of dizziness, nosebleeds hot flashes. She reports these symptoms started about 3 days ago. She states that she has had 5 nosebleeds today lasting 10-15 minutes each Currently she has not experiencing any nosebleed She reports a history of nosebleeds but seem abdomen not as common as over the last few days Denies any trauma to the face or nose She has not on any blood thinners She reports nasal congestion He also complains of mild flu-like symptoms Currently she has not experiencing a nosebleed No other complaints or concerns at this time Related Data Previous Rx's Medication Instructions Recorded ibuprofen 600 mg tablet 600 mg PO Q8H PRN pain #30 tabs 08/10/20 acetaminophen 500 mg tablet 1,000 mg (2 x 500 mg) PO QID PRN 12/01/20 (Tylenol Extra Strength) fever or pain #14 tabs naproxen 500 mg tablet 500 mg PO BID PRN pain #30 tabs 08/11/21 cyclobenzaprine 5 mg tablet 5 mg PO TID PRN neck pain 7 days 05/16/22 #21 tabs diazepam 2 mg tablet (Valium) 2 mg PO TID PRN muscle spasm #7 05/22/22 tabs oxycodone 5 mg tablet 5 mg PO TID PRN pain #6 tabs 05/22/22 acetaminophen 500 mg tablet 500 mg PO Q6H PRN fever or pain 06/13/22 (Tylenol Extra Strength) #14 tabs cyclobenzaprine 5 mg tablet 5 mg PO Q8H PRN pain (scale score 06/13/22 7-10) 5 days #14 tabs lidocaine 5 % topical patch 1 patch topical DAILY PRN pain #30 06/13/22 (Lidoderm) ea naproxen 500 mg tablet 500 mg PO BID PRN pain 10 days #20 06/13/22 tabs prednisone 20 mg tablet 40 mg (2 x 20 mg) PO DAILY 5 days 06/13/22 #10 tabs xrmjpvlmai-jerdgpkewmkco-eopzoqal 2 cap PO Q4-6H PRN migraine 09/17/22 50 mg-300 mg-40 mg capsule headache #14 caps (Fioricet) ondansetron 4 mg disintegrating 4 mg PO Q8H PRN nausea and 09/17/22 tablet vomiting #20 tabs cephalexin 500 mg capsule 500 mg PO QID 7 days #28 caps 01/17/23 Allergies Allergy/AdvReac Type Severity Reaction Status Date / Time No Known Allergies Allergy Verified 11/04/23 22:36 Review of Systems Constitutional: Constitutional: Denies body ache(s), Denies chills, Denies fever(s), Reports malaise and Reports weakness ENT: Reports dizziness, Reports epistaxis and Reports sore throat Cardiovascular: Cardiovascular: Denies chest pain and Denies dyspnea Respiratory: Respiratory: Reports cough and Denies dyspnea Gastrointestinal: Gastrointestinal: Denies abdominal pain, Denies nausea and Denies vomiting Musculoskeletal: Musculoskeletal: Denies back pain Integumentary/Breasts: Skin/Breast: Denies rash Neurologic: Reports dizziness and Reports weakness Psychiatric: Psychiatric: Denies anxiety PMFSH Past Medical History Medical History Asthma No known health problems Surgical History History of salpingectomy History of tonsillectomy Social History Social History Alcohol intake: never Substance Use Type: Marijuana Advance Directives: No Advance Directives Information Provided: No Sexual orientation: Straight/Heterosexual Gender identity: Female Physical Exam ED Vital Signs: Vital Signs - 24 hr 11/04/23 22:36 11/04/23 22:43 Temperature 97.9 F 98.6 F Pulse Rate 79 78 Respiratory Rate 16 14 Blood Pressure 118/72 124/69 Pulse Oximetry 98 97 Oxygen Delivery Method Room Air Room Air BMI result Body Mass Index 29.2 Const General: healthy appearing, comfortable, no acute distress, alert and awake Nutritional Appearance: well nourished Orientation/consciousness: patient oriented x3 HENMT Other: Dried blood within the nares right greater than left. No obvious lesions or active bleeding Head: Yes normocephalic and Yes atraumatic Throat: Yes posterior oropharynx normal Eyes Eyelids: Yes eyelids normal Conjunctivae: conjunctivae normal Sclerae: sclerae normal Corneas: corneas normal Pupils: Equal, round and reactive pupils present EOM: EOMs intact bilaterally Neck Neck: Yes full ROM Resp Effort & Inspection: normal respiratory effort, able to speak in complete sentences, no audible wheezes and not labored Auscultation: clear to auscultation bilaterally Cardio Rate: regular rate Rhythm: regular rhythm GI Inspection: No distended Palpation (GI): Soft to palpation, not firm, nontender, no guarding and not rigid Skin General skin exam: no rashes or lesions noted and elasticity normal Neuro General: patient oriented x3 Cranial nerves: Yes Equal, round and reactive pupils present and Yes Bilaterally intact EOM present Cognition (Neuro): normal cognition Extrem Other: Moving all extremities well without any obvious deformities Medical Decision Making Medical Decision Making [facility] Narrative: [age] female presents for evaluation of frequent nosebleeds. Plan for CBC to check platelets and hemoglobin/hematocrit. Currently the patient is not bleeding. Symptoms may be related to viral etiology, humidity or coagulopathy. Plan for viral swab as well. Again, the patient is not currently experiencing any epistaxis. Her vital signs are stable Differential Diagnosis Differential Diagnoses: The differential diagnosis associated with the presentation includes Upper respiratory infection Epistaxis Viral syndrome Coagulopathy Anemia Lab Data [facility] Lab Attestation statement: I reviewed the patient's lab results. Mild leukocytosis to 11.0 K. No significant anemia. Platelet count 288 K 11/04/23 23:06 Labs: Lab Results 11/04/23 11/04/23 Range/Units 23:06 23:10 WBC 11.0 H (4.8-10.8) X10*3/uL RBC 4.15 L (4.20-5.50) X10*6/uL Hgb 12.2 (12.0-16.0) g/dl Hct 35.4 L (37.0-47.0) % MCV 85.3 (80.0-98.0) fL MCH 29.4 (27.0-33.0) pg MCHC 34.5 (31.0-35.0) g/dl RDW 13.0 (11.0-16.0) % Plt Count 288 (160-400) X10*3/uL MPV 9.9 (9.4-12.3) fL Immature Gran % (Auto) 0.4 (0.0-0.4) % Neut % (Auto) 67.3 (45-73) % Lymph % (Auto) 22.8 (20-40) % [place] % (Auto) 8.2 (2-11) % Eos % (Auto) 0.8 (0-4) % Baso % (Auto) 0.5 (0-2) % Lymph # (Auto) 2.5 (1.2-4.9) X10*3/uL [place] # (Auto) 0.9 (0.1-1.2) X10*3/uL Eos # (Auto) 0.1 (0.0-0.4) X10*3/uL Baso # (Auto) 0.1 (0.0-0.2) X10*3/uL Abs Immat Gran (auto) 0.04 H (0.00-0.03) X10*3/uL Absolute Neuts (auto) 7.4 (2.0-8.3) x10*3/uL Absolute Nucleated RBC 0.000 (0.0-0.012) X10*3/uL Nucleated RBC % (auto) 0.0 (0.0-0.2) /100WBC Urine Color Yellow Urine Appearance Cloudy Urine pH 7.5 (5.0-9.0) Ur Specific [place] 1.025 (1.005-1.025) Urine Protein Negative (Neg-Trace) mg/dL Urine Glucose (UA) Negative (Negative) mg/dL Urine Ketones Negative (Negative) mg/dL Urine Blood Negative (Negative) Urine Nitrite Negative (Negative) Ur Leukocyte Esterase Moderate (2+) H (Negative) Urine RBC 3-5 H (0-2) /HPF Urine WBC 0-5 (0-5) /HPF Ur Squamous Epith Cells 0-2 (0-2) /HPF Urine Bacteria 1+ (None Seen) Hyaline Casts 0-2 (0-2) /LPF Urine Test NEGATIVE (NEGATIVE) Discharge Plan Discharge Clinical Impression: Epistaxis Patient Disposition: Still a Patient Instructions: Nosebleed (ED) Additional Instructions: Your blood counts and platelet counts are reassuring today. You may benefit from sleeping with a humidifier next to your bed at night for at least the next 2 weeks You may use xqkp-upm-xzssvxg Afrin or oxymetazoline, 2 sprays to the affected nostril for any nosebleeds. Follow-up with your primary doctor, return for new or worsening symptoms Prescriptions: No Action ibuprofen 600 mg tablet 600 mg PO Q8H PRN (Reason: pain) Qty: 30 0RF Hold Instructions: Resume on 05/17/22. acetaminophen [Tylenol Extra Strength] 500 mg tablet 1,000 mg PO QID PRN (Reason: fever or pain) Qty: 14 0RF naproxen 500 mg tablet 500 mg PO BID PRN (Reason: pain) Qty: 30 0RF Hold Instructions: Resume on 05/17/22. eqwbkbitbi-tfwlgvgoixotb-jsoi [Fioricet] 50-300-40 mg capsule 2 cap PO Q4-6H PRN (Reason: migraine headache) Qty: 14 0RF Rx Instructions: do not exceed 6 caps per day. May substitute for medication equivalent excepted by patient's insurance. ondansetron 4 mg tablet,disintegrating 4 mg PO Q8H PRN (Reason: nausea and vomiting) Qty: 20 0RF cyclobenzaprine 5 mg tablet 5 mg PO TID PRN (Reason: neck pain) 7 Days Qty: 21 0RF oxycodone 5 mg tablet 5 mg PO TID PRN (Reason: pain) Qty: 6 0RF Rx Instructions: Partial Fill upon patient request. diazepam [Valium] 2 mg tablet 2 mg PO TID PRN (Reason: muscle spasm) Qty: 7 0RF prednisone 20 mg tablet 40 mg PO DAILY 5 Days Qty: 10 0RF acetaminophen [Tylenol Extra Strength] 500 mg tablet 500 mg PO Q6H PRN (Reason: fever or pain) Qty: 14 0RF lidocaine [Lidoderm] 5 % adhesive patch,medicated 1 patch topical DAILY MDD remove after 12 hours PRN (Reason: pain) Qty: 30 0RF Rx Instructions: leave on most painful area for up to 12 hrs naproxen 500 mg tablet 500 mg PO BID PRN (Reason: pain) 10 Days Qty: 20 0RF cyclobenzaprine 5 mg tablet 5 mg PO Q8H PRN (Reason: pain (scale score 7-10)) 5 Days Qty: 14 0RF cephalexin 500 mg capsule 500 mg PO QID 7 Days Qty: 28 0RF
[2023-11-04 23:56] LABS: Influenza A PCR NEGATIVE (Negative); Influenza B PCR NEGATIVE (Negative); Resp Syncy Virus RNA Qual PCR NEGATIVE (Negative); SARS COV2 PCR INHOUSE NEGATIVE (Negative)
== END 2023-11-05 00:12 | disposition home or self-care (01) ==
PROVIDERS: Emergency Provider Emergency Medicine; PCP Internal Medicine
DX: R04.0 Epistaxis (principal); R42 Dizziness and giddiness; Z11.52 Encounter for screening for COVID-19; Z20.828 Contact with and (suspected) exposure to other viral communicable diseases
CPT/HCPCS: 0241U; 81001; 81025; 85025; 99283; 99284

== ENCOUNTER 2023-11-22 21:44 | Emergency (ER) | payer OTHER, SELFPAY ==
[2023-11-22 21:46] VITALS: BP 123/72; PULSE 82; RESP 18; TEMP 36.7; O2SAT 99; BMI 30.4
--- NOTE | 2023-11-22 21:47 | ED_ITS ---
HPI - General Adult General Chief complaint: Headache Stated complaint: migraine Time Seen by Provider: 11/23/23 01:14 Source: patient Mode of arrival: ambulatory Limitations: no limitations History of Present Illness HPI narrative: Patient history of migraine headache used to be on Imitrex and Topamax in the past does not have any medicine at this time complaining of headache usual migraine for last 2 weeks localized to left side with nausea and light sensitivity no fever no head injury patient feels headache is same as before Related Data Previous Rx's Medication Instructions Recorded ibuprofen 600 mg tablet 600 mg PO Q8H PRN pain #30 tabs 08/10/20 acetaminophen 500 mg tablet 1,000 mg (2 x 500 mg) PO QID PRN 12/01/20 (Tylenol Extra Strength) fever or pain #14 tabs naproxen 500 mg tablet 500 mg PO BID PRN pain #30 tabs 08/11/21 cyclobenzaprine 5 mg tablet 5 mg PO TID PRN neck pain 7 days 05/16/22 #21 tabs diazepam 2 mg tablet (Valium) 2 mg PO TID PRN muscle spasm #7 05/22/22 tabs oxycodone 5 mg tablet 5 mg PO TID PRN pain #6 tabs 05/22/22 acetaminophen 500 mg tablet 500 mg PO Q6H PRN fever or pain 06/13/22 (Tylenol Extra Strength) #14 tabs cyclobenzaprine 5 mg tablet 5 mg PO Q8H PRN pain (scale score 06/13/22 7-10) 5 days #14 tabs lidocaine 5 % topical patch 1 patch topical DAILY PRN pain #30 06/13/22 (Lidoderm) ea naproxen 500 mg tablet 500 mg PO BID PRN pain 10 days #20 06/13/22 tabs prednisone 20 mg tablet 40 mg (2 x 20 mg) PO DAILY 5 days 06/13/22 #10 tabs zcuftxlrth-tapjbdeavdzbq-mchyaame 2 cap PO Q4-6H PRN migraine 09/17/22 50 mg-300 mg-40 mg capsule headache #14 caps (Fioricet) ondansetron 4 mg disintegrating 4 mg PO Q8H PRN nausea and 09/17/22 tablet vomiting #20 tabs cephalexin 500 mg capsule 500 mg PO QID 7 days #28 caps 01/17/23 Allergies Allergy/AdvReac Type Severity Reaction Status Date / Time No Known Allergies Allergy Verified 11/04/23 22:36 Review of Systems 2 Review of Systems: Yes all other systems are reviewed and are negative [facility] Past Medical History Medical History Asthma No known health problems Surgical History History of salpingectomy History of tonsillectomy Social History Social History Alcohol intake: never Substance Use Type: Marijuana Advance Directives: No Advance Directives Information Provided: Yes Sexual orientation: Straight/Heterosexual Gender identity: Female Physical Exam ED Vital Signs: Vital Signs - 24 hr 11/22/23 21:46 11/23/23 01:53 Temperature 98.0 F 98.0 F Pulse Rate 82 53 Respiratory Rate 18 16 Blood Pressure 123/72 114/64 Pulse Oximetry 99 98 Oxygen Delivery Method Room Air Room Air BMI result Body Mass Index 30.4 Appearance: Alert. Oriented X3. No acute distress. Eyes: PERRLA, No Nystagmus ENT: Pharynx normal. Oral Mucosa moist no temporal artery tenderness Neck: Normal inspection. Neck supple. CVS: Normal heart rate and rhythm. Pulses normal. Respiratory: No respiratory distress. Equal air entry bilateral, Abdomen: Soft and nontender. Bowel sounds are present, Skin: Skin warm and dry. Normal skin color. Normal skin turgor. Extremities: No lower extremity edema. No calf tenderness Neuro: Oriented X 3. No motor deficit. No sensory deficit.No cerebellar signs , cranial nerves II-XII intact Course Course Course Narrative: RME performed by Joyce Morales PA-C. Patient is a 33 year old assigned female at presenting to the emergency department with a migraine. Took Excedrin, didn't make it better. Nausea, vomiting. Detailed physical exam and review of systems are deferred to the director of primary. Patient placed back in the waiting room pending room availability and results. Medications Administered Discontinued Medications Generic Name Dose Route Start Last Admin Trade Name Freq PRN Reason Stop Dose Admin Acetaminophen/Butalbital/Caffeine 1 tab 11/23/23 01:33 11/23/23 01:41 Butalb/Acetamin/Caff 50/325/40 Tablet PO 11/23/23 01:34 1 tab ONCE ONE Administration Ondansetron HCl 4 mg 11/22/23 21:49 11/22/23 21:51 Ondansetron Odt 4 Mg Tab.Rapdis TRANSLINGU 11/22/23 21:50 4 mg ONCE ONE Administration Sumatriptan Succinate 6 mg 11/23/23 01:33 11/23/23 01:41 Sumatriptan Succinate 6 Mg/0.5 Ml Vial SUBCUT 11/23/23 01:34 6 mg ONCE ONE Administration Medical Decision Making Medical Decision Making MDM Narrative: Patient with migraine headache will give Imitrex and Fioricet. Patient felt better after Imitrex and Fioricet discharge patient home still nauseated will give Zofran Lab Data [facility] Lab Attestation statement: I reviewed the patient's lab results. 11/22/23 22:17 11/22/23 22:17 Labs: Lab Results 11/22/23 Range/Units 22:17 WBC 9.8 (4.8-10.8) X10*3/uL RBC 4.43 (4.20-5.50) X10*6/uL Hgb 13.0 (12.0-16.0) g/dl Hct 37.8 (37.0-47.0) % MCV 85.3 (80.0-98.0) fL MCH 29.3 (27.0-33.0) pg MCHC 34.4 (31.0-35.0) g/dl RDW 12.9 (11.0-16.0) % Plt Count 286 (160-400) X10*3/uL MPV 9.8 (9.4-12.3) fL Immature Gran % (Auto) 0.2 (0.0-0.4) % Neut % (Auto) 64.7 (45-73) % Lymph % (Auto) 26.2 (20-40) % [place] % (Auto) 7.7 (2-11) % Eos % (Auto) 0.7 (0-4) % Baso % (Auto) 0.5 (0-2) % Lymph # (Auto) 2.6 (1.2-4.9) X10*3/uL [place] # (Auto) 0.8 (0.1-1.2) X10*3/uL Eos # (Auto) 0.1 (0.0-0.4) X10*3/uL Baso # (Auto) 0.1 (0.0-0.2) X10*3/uL Abs Immat Gran (auto) 0.02 (0.00-0.03) X10*3/uL Absolute Neuts (auto) 6.3 (2.0-8.3) x10*3/uL Absolute Nucleated RBC 0.000 (0.0-0.012) X10*3/uL Nucleated RBC % (auto) 0.0 (0.0-0.2) /100WBC Sodium 139 (135-145) mmol/L Potassium 4.1 (3.3-5.1) mmol/L Chloride 104 (96-108) mmol/L Carbon Dioxide 27 (22-29) mmol/L Anion Gap 12 (12-20) BUN 11 (9-16) mg/dL Creatinine 0.80 (0.5-1.4) mg/dL Estim Creat Clear Calc 103.4 Estimated GFR > 60 Random Glucose 93 (60-115) mg/dL Calcium 9.7 (8.4-10.2) mg/dL Total Bilirubin 0.3 (0.0-1.0) mg/dL AST 15 (5-31) U/L ALT 12 (0-31) U/L Alkaline Phosphatase 53 (39-117) U/L Total Protein 7.3 (6.5-8.0) g/dL Albumin 4.4 (3.5-5.0) g/dL Beta HCG, Quant < 2 mIU/mL Discharge Plan Discharge Patient Disposition: Home, Self-Care Prescriptions: No Action ibuprofen 600 mg tablet 600 mg PO Q8H PRN (Reason: pain) Qty: 30 0RF Hold Instructions: Resume on 05/17/22. acetaminophen [Tylenol Extra Strength] 500 mg tablet 1,000 mg PO QID PRN (Reason: fever or pain) Qty: 14 0RF naproxen 500 mg tablet 500 mg PO BID PRN (Reason: pain) Qty: 30 0RF Hold Instructions: Resume on 05/17/22. amvzzjuzme-ixedymohgnhtq-wtcf [Fioricet] 50-300-40 mg capsule 2 cap PO Q4-6H PRN (Reason: migraine headache) Qty: 14 0RF Rx Instructions: do not exceed 6 caps per day. May substitute for medication equivalent excepted by patient's insurance. ondansetron 4 mg tablet,disintegrating 4 mg PO Q8H PRN (Reason: nausea and vomiting) Qty: 20 0RF cyclobenzaprine 5 mg tablet 5 mg PO TID PRN (Reason: neck pain) 7 Days Qty: 21 0RF oxycodone 5 mg tablet 5 mg PO TID PRN (Reason: pain) Qty: 6 0RF Rx Instructions: Partial Fill upon patient request. diazepam [Valium] 2 mg tablet 2 mg PO TID PRN (Reason: muscle spasm) Qty: 7 0RF prednisone 20 mg tablet 40 mg PO DAILY 5 Days Qty: 10 0RF acetaminophen [Tylenol Extra Strength] 500 mg tablet 500 mg PO Q6H PRN (Reason: fever or pain) Qty: 14 0RF lidocaine [Lidoderm] 5 % adhesive patch,medicated 1 patch topical DAILY MDD remove after 12 hours PRN (Reason: pain) Qty: 30 0RF Rx Instructions: leave on most painful area for up to 12 hrs naproxen 500 mg tablet 500 mg PO BID PRN (Reason: pain) 10 Days Qty: 20 0RF cyclobenzaprine 5 mg tablet 5 mg PO Q8H PRN (Reason: pain (scale score 7-10)) 5 Days Qty: 14 0RF cephalexin 500 mg capsule 500 mg PO QID 7 Days Qty: 28 0RF
[2023-11-22] MEDS: Ondansetron ODT 4 MG TAB.RAPDIS TRANSLINGU (21:51)
[2023-11-22 22:21] LABS: MANUAL DIFF FLAG NO
[2023-11-22 22:27] LABS: Basophils Absolute Auto 0.1 X10*3/uL (0.0-0.2); Basophils Percent Auto 0.5 % (0-2); Eosinophils Absolute Auto 0.1 X10*3/uL (0.0-0.4); Eosinophils Percent Auto 0.7 % (0-4); Hematocrit 37.8 % (37.0-47.0); Imm Gran Abs Auto 0.02 X10*3/uL (0.00-0.03); Imm Gran Pct Auto 0.2 % (0.0-0.4); Lymphocytes Absolute Auto 2.6 X10*3/uL (1.2-4.9); Lymphocytes Percent Auto 26.2 % (20-40); Mean Corpuscular HGB Conc 34.4 g/dl (31.0-35.0); Mean Corpuscular Hemoglobin 29.3 pg (27.0-33.0); Mean Corpuscular Volume 85.3 fL (80.0-98.0); Mean Platelet Volume 9.8 fL (9.4-12.3); Monocytes Absolute Auto 0.8 X10*3/uL (0.1-1.2); Monocytes Percent Auto 7.7 % (2-11); Neutrophils Absolute Auto 6.3 x10*3/uL (2.0-8.3); Neutrophils Percent Auto 64.7 % (45-73); Platelet Count 286 X10*3/uL (160-400); Red Blood Count 4.43 X10*6/uL (4.20-5.50); Red Cell Distribution Width 12.9 % (11.0-16.0); White Blood Count 9.8 X10*3/uL (4.8-10.8)
[2023-11-22 22:45] LABS: Alanine Aminotransferase 12 U/L (0-31); Albumin Level 4.4 g/dL (3.5-5.0); Alkaline Phosphatase 53 U/L (39-117); Anion Gap 12 (12-20); Aspartate Amino Transferase 15 U/L (5-31); Bilirubin Total 0.3 mg/dL (0.0-1.0); Blood Urea Nitrogen 11 mg/dL (9-16); Calcium 9.7 mg/dL (8.4-10.2); Carbon Dioxide 27 mmol/L (22-29); Chloride 104 mmol/L (96-108); Creatinine Clr Calc Pharmacy 103.4; Estimated Glomerular Filt Rate > 60; Glucose Random 93 mg/dL (60-115); Potassium 4.1 mmol/L (3.3-5.1); Sodium 139 mmol/L (135-145); Total Protein 7.3 g/dL (6.5-8.0)
[2023-11-22 22:46] LABS: HCG Quantitative < 2 mIU/mL
[2023-11-23] MEDS: SUMAtriptan succinate 6 MG/0.5 ML VIAL SUBCUT (01:41)
[2023-11-23] MEDS: Butalb/Acetamin/Caff 50/325/40 TABLET 1 TAB PO (01:41)
[2023-11-23 01:53] VITALS: BP 114/64; PULSE 53; RESP 16; TEMP 36.7; O2SAT 98
[2023-11-23] MEDS: Ondansetron ODT 4 MG TAB.RAPDIS TRANSLINGU (02:04)
== END 2023-11-23 02:25 | disposition home or self-care (01) ==
PROVIDERS: Physician Assistant Medical; Emergency Provider Internal Medicine; PCP Internal Medicine
DX: G43.909 Migraine, unspecified, not intractable, without status migrainosus (principal); Z79.899 Other long term (current) drug therapy
CPT/HCPCS: 36415; 80053; 84702; 85025; 96372; 99284; J3030

== ENCOUNTER 2024-07-04 08:09 | Emergency (ER) | payer OTHER, SELFPAY ==
[2024-07-04 08:21] VITALS: BP 123/69; PULSE 83; RESP 16; TEMP 36.9; O2SAT 100; BMI 30.2
[2024-07-04] MEDS: Metoclopramide HCl 10 MG/2 ML VIAL IVPUSH (08:49)
[2024-07-04] MEDS: diphenhydrAMINE HCL 50 MG/ML VIAL 25 MG IVPUSH (08:49)
[2024-07-04] MEDS: Ketorolac Tromethamine 15 MG/ML VIAL IVPUSH (08:49)
[2024-07-04 08:58] LABS: MANUAL DIFF FLAG NO
[2024-07-04 09:00] LABS: Basophils Absolute Auto 0.1 X10*3/uL (0.0-0.2); Basophils Percent Auto 0.5 % (0-2); Eosinophils Percent Auto 0.1 % (0-4); Hematocrit 38.1 % (37.0-47.0); Hemoglobin 13.1 g/dl (12.0-16.0); Imm Gran Abs Auto 0.04 X10*3/uL (0.00-0.03); Imm Gran Pct Auto 0.3 % (0.0-0.4); Lymphocytes Absolute Auto 1.2 X10*3/uL (1.2-4.9); Mean Corpuscular HGB Conc 34.4 g/dl (31.0-35.0); Mean Corpuscular Hemoglobin 29.3 pg (27.0-33.0); Mean Corpuscular Volume 85.2 fL (80.0-98.0); Mean Platelet Volume 10.1 fL (9.4-12.3); Monocytes Absolute Auto 1.1 X10*3/uL (0.1-1.2); Monocytes Percent Auto 8.7 % (2-11); Neutrophils Absolute Auto 10.6 x10*3/uL (2.0-8.3); Neutrophils Percent Auto 81.4 % (45-73); Platelet Count 250 X10*3/uL (160-400); Red Blood Count 4.47 X10*6/uL (4.20-5.50); Red Cell Distribution Width 12.9 % (11.0-16.0)
--- NOTE | 2024-07-04 09:01 | ED.HA ---
HPI - Headache General Chief Complaint: Headache Stated Complaint: Migraine Time Seen by Provider: 07/04/24 08:17 Source: patient, RN notes reviewed and old records reviewed Mode of arrival: ambulatory History of Present Illness ED Provider: Stephanie Willis PA-C HPI Narrative: 34-year-old female with a past medical history of migraines, asthma, presenting to the ED complaining of migraine headache with associated nausea, emesis x1, and photophobia since last night. Admits to taking migraine pill last night, denies taking anything today. Also reports chills. Admits migraine is typical for her, not maximal at onset. Denies vision change or loss, weakness, numbness/tingling, abdominal pain, fever Related Data Previous Rx's ?Medication ?Instructions ?Recorded ibuprofen 600 mg tablet 600 mg PO Q8H PRN pain #30 tabs 08/10/20 acetaminophen 500 mg tablet 1,000 mg (2 x 500 mg) PO QID PRN 12/01/20 (Tylenol Extra Strength) fever or pain #14 tabs naproxen 500 mg tablet 500 mg PO BID PRN pain #30 tabs 08/11/21 cyclobenzaprine 5 mg tablet 5 mg PO TID PRN neck pain 7 days 05/16/22 #21 tabs diazepam 2 mg tablet (Valium) 2 mg PO TID PRN muscle spasm #7 05/22/22 tabs oxycodone 5 mg tablet 5 mg PO TID PRN pain #6 tabs 05/22/22 acetaminophen 500 mg tablet 500 mg PO Q6H PRN fever or pain 06/13/22 (Tylenol Extra Strength) #14 tabs cyclobenzaprine 5 mg tablet 5 mg PO Q8H PRN pain (scale score 06/13/22 7-10) 5 days #14 tabs lidocaine 5 % topical patch 1 patch topical DAILY PRN pain #30 06/13/22 (Lidoderm) ea naproxen 500 mg tablet 500 mg PO BID PRN pain 10 days #20 06/13/22 tabs prednisone 20 mg tablet 40 mg (2 x 20 mg) PO DAILY 5 days 06/13/22 #10 tabs lehqfgitmh-rxrpffnrldbnr-jdiiihmi 2 cap PO Q4-6H PRN migraine 09/17/22 50 mg-300 mg-40 mg capsule headache #14 caps (Fioricet) ondansetron 4 mg disintegrating 4 mg PO Q8H PRN nausea and 09/17/22 tablet vomiting #20 tabs cephalexin 500 mg capsule 500 mg PO QID 7 days #28 caps 01/17/23 ugfbzmzxdu-sacbkvnexdgls-suthhhct 1 tab PO Q6H PRN haeadace #20 tabs 11/23/23 50 mg-325 mg-40 mg tablet ondansetron 4 mg disintegrating 4 mg PO Q6-8H PRN nausea and 11/23/23 tablet vomiting #7 tabs sumatriptan succinate 50 mg tablet 50 mg PO Q2H PRN migraine headache 11/23/23 (Imitrex) #10 tabs Allergies Allergy/AdvReac Type Severity Reaction Status Date / Time No Known Allergies Allergy Verified 07/04/24 08:22 Review of Systems Review of Systems: Yes all other systems are reviewed and are negative Constitutional: Constitutional: Reports as per HPI Neurologic: Denies Abnormal speech present [facility] Past Medical History Attestation statement: The following information was validated with the patient. Source: old records reviewed Medical History Asthma No known health problems Surgical History History of salpingectomy History of tonsillectomy Social History Social History Unable to assess alcohol history related to: Unknown Alcohol intake: never Smoked in Last 30 Days: No Use of substances other than those prescribed or required for medical reasons: Unknown Substance Use Type: Marijuana Advance Directives: No Advance Directives Information Provided: Yes Sexual orientation: Straight/Heterosexual Gender identity: Female Physical Exam Vital Signs: Vital Signs: Last Vital Signs Temp 0 F L 07/04/24 10:17 Pulse 70 07/04/24 10:17 Resp 14 07/04/24 10:17 BP 98/49 L 07/04/24 10:17 Pulse Ox 98 07/04/24 10:17 O2 Del Method Room Air 07/04/24 10:17 BMI result Body Mass Index 30.2 Const: General: cooperative, healthy appearing and no acute distress Orientation/consciousness: patient oriented x3 Limitations: no limitations HEENT: Head: Yes normal to inspection and Yes atraumatic Ears: hearing grossly normal bilaterally General nose exam: Normal external nose present Face and sinus: Yes normal facial exam Throat: Yes posterior oropharynx normal and Yes uvula midline Eyes: General: appearance normal, both eyes and all related structures Pupils: Equal, round and reactive pupils present EOM: EOMs intact bilaterally Neck: Neck: Yes normal visual inspection and Yes no meningeal signs Resp: Effort & Inspection: normal respiratory effort and no respiratory distress Auscultation: clear to auscultation bilaterally Cardio: Rate: regular rate Heart sounds: S1 normal heart sound present and S2 normal heart sound present GI: Inspection: Yes normal to inspection Palpation (GI): Soft to palpation, nontender, no guarding and not rigid Skin: Rashes: no rashes Wounds: no wounds Neuro: General: patient oriented x3, gait normal, tone normal, moves all extremities, no meningeal signs, no focal motor deficits and CN's II-XI intact bilaterally Cranial nerves: Yes CN's II-XII intact bilaterally and Yes Equal, round and reactive pupils present Cognition (Neuro): normal cognition Speech: No Abnormal speech present Gait exam (Neuro): Normal gait present Motor exam (neuro): 5/5 motor strength present throughout and no tremor noted Extrem: General: Yes normal to inspection Course Course Course Narrative: -0951--mild leukocytosis of 13.0. Labs otherwise reassuring >> on re-evaluation patient is sleeping comfortably in stretcher. Reports symptomatic improvement. Feels safe for discharge home at this time Results discussed with patient including worrisome signs and symptoms and strict return precautions, and when to return to the emergency department. They verbalized understanding and feel safe for discharge at this time. Medications Administered Discontinued Medications Generic Name Dose Route Start Last Admin Trade Name [place] PRN Reason Stop Dose Admin Diphenhydramine HCl 25 mg 07/04/24 08:32 07/04/24 08:49 Diphenhydramine Hcl 50 Mg/Ml Vial IVPUSH 07/04/24 08:33 25 mg ONCE ONE Administration Ketorolac Tromethamine 15 mg 07/04/24 08:32 07/04/24 08:49 Ketorolac Tromethamine 15 Mg/Ml Vial IVPUSH 07/04/24 08:33 15 mg ONCE ONE Administration Metoclopramide HCl 10 mg 07/04/24 08:32 07/04/24 08:49 Metoclopramide Hcl 10 Mg/2 Ml Vial IVPUSH 07/04/24 08:33 10 mg ONCE ONE Administration Medical Decision Making Medical Decision Making [facility] Narrative: 34-year-old female with a past medical history of migraines, asthma, presenting to the ED complaining of migraine headache with associated nausea, emesis x1, and photophobia since last night. On exam vital signs stable, NAD, nontoxic appearing, photophobia appreciated, no focal neuro deficits. Headache typical for patients migraines. Concern for migraine headache vs viral illness. Low suspicion for SAH, encephalitis/meningitis or intra-abdominal pathology Plan: Labs, viral testing, symptomatic remedies, re-evaluate Please refer to course for remaining clinical decision making, interpretation of labs/imaging results, and discussions with consultants and/or family members. Differential Diagnosis Differential Diagnoses: The differential diagnosis associated with the presentation includes As above Admission/Observation Consideration of admission/observation: Escalation of care including admission/observation considered Lab Data [facility] Lab Attestation statement: I reviewed the patient's lab results. 07/04/24 08:48 07/04/24 08:48 Labs: Lab Results 07/04/24 Range/Units 08:48 WBC 13.0 H (4.8-10.8) X10*3/uL RBC 4.47 (4.20-5.50) X10*6/uL Hgb 13.1 (12.0-16.0) g/dl Hct 38.1 (37.0-47.0) % MCV 85.2 (80.0-98.0) fL MCH 29.3 (27.0-33.0) pg MCHC 34.4 (31.0-35.0) g/dl RDW 12.9 (11.0-16.0) % Plt Count 250 (160-400) X10*3/uL MPV 10.1 (9.4-12.3) fL Immature Gran % (Auto) 0.3 (0.0-0.4) % Neut % (Auto) 81.4 H (45-73) % Lymph % (Auto) 9.0 L (20-40) % [place] % (Auto) 8.7 (2-11) % Eos % (Auto) 0.1 (0-4) % Baso % (Auto) 0.5 (0-2) % Lymph # (Auto) 1.2 (1.2-4.9) X10*3/uL [place] # (Auto) 1.1 (0.1-1.2) X10*3/uL Eos # (Auto) 0.0 (0.0-0.4) X10*3/uL Baso # (Auto) 0.1 (0.0-0.2) X10*3/uL Abs Immat Gran (auto) 0.04 H (0.00-0.03) X10*3/uL Absolute Neuts (auto) 10.6 H (2.0-8.3) x10*3/uL Absolute Nucleated RBC 0.000 (0.0-0.012) X10*3/uL Nucleated RBC % (auto) 0.0 (0.0-0.2) /100WBC Sodium 137 (135-145) mmol/L Potassium 3.6 (3.3-5.1) mmol/L Chloride 105 (96-108) mmol/L Carbon Dioxide 23 (22-29) mmol/L Anion Gap 13 (12-20) BUN 7 L (9-16) mg/dL Creatinine 0.70 (0.5-1.4) mg/dL Estim Creat Clear Calc 108.2 Estimated GFR > 60 Random Glucose 115 (60-115) mg/dL Calcium 9.5 (8.4-10.2) mg/dL Beta HCG, Quant < 2 mIU/mL Radiology Impression Discussion of test interpretation with radiology: I have reviewed the radiologist's reading. External Record Review External record reviewed: Inpatient record, Office record, Outpatient record, Prior outpatient labs, Prior outpatient radiology, Primary care record and Outside ED record Tests considered The following testing was considered but not selected: As above Prescription Management I considered prescription management with: Pain Medication Chronic Conditions Patient?s care impacted by: Other (Migraine) Social Determinants Patient?s care significantly limited by Social Determinants of Health including: Other Social Determinant of Health Discharge Plan Discharge Clinical Impression: Migraine Patient Disposition: Home, Self-Care Instructions: Migraine Headache (ED) Additional Instructions: Your blood work is reassuring Make sure you stay hydrated at home Take Tylenol and ibuprofen as needed Follow up with her doctor If symptoms persist or worsen, headache is constant, unbearable, you persistent nausea/vomiting or weakness, vision changes return to the ED Prescriptions: No Action ibuprofen 600 mg tablet 600 mg PO Q8H PRN (Reason: pain) Qty: 30 0RF acetaminophen [Tylenol Extra Strength] 500 mg tablet 1,000 mg PO QID PRN (Reason: fever or pain) Qty: 14 0RF naproxen 500 mg tablet 500 mg PO BID PRN (Reason: pain) Qty: 30 0RF ikljbkgxoa-ssfwappocwrgs-gghd [Fioricet] 50-300-40 mg capsule 2 cap PO Q4-6H PRN (Reason: migraine headache) Qty: 14 0RF Rx Instructions: do not exceed 6 caps per day. May substitute for medication equivalent excepted by patient's insurance. ondansetron 4 mg tablet,disintegrating 4 mg PO Q8H PRN (Reason: nausea and vomiting) Qty: 20 0RF cyclobenzaprine 5 mg tablet 5 mg PO TID PRN (Reason: neck pain) 7 Days Qty: 21 0RF oxycodone 5 mg tablet 5 mg PO TID PRN (Reason: pain) Qty: 6 0RF Rx Instructions: Partial Fill upon patient request. diazepam [Valium] 2 mg tablet 2 mg PO TID PRN (Reason: muscle spasm) Qty: 7 0RF prednisone 20 mg tablet 40 mg PO DAILY 5 Days Qty: 10 0RF acetaminophen [Tylenol Extra Strength] 500 mg tablet 500 mg PO Q6H PRN (Reason: fever or pain) Qty: 14 0RF lidocaine [Lidoderm] 5 % adhesive patch,medicated 1 patch topical DAILY MDD remove after 12 hours PRN (Reason: pain) Qty: 30 0RF Rx Instructions: leave on most painful area for up to 12 hrs naproxen 500 mg tablet 500 mg PO BID PRN (Reason: pain) 10 Days Qty: 20 0RF cyclobenzaprine 5 mg tablet 5 mg PO Q8H PRN (Reason: pain (scale score 7-10)) 5 Days Qty: 14 0RF cephalexin 500 mg capsule 500 mg PO QID 7 Days Qty: 28 0RF sumatriptan succinate [Imitrex] 50 mg tablet 50 mg PO Q2H PRN (Reason: migraine headache) Qty: 10 0RF Rx Instructions: do not exceed 2 doses per 24 hrs mnnieykddv-pqvvdejnvccrs-qtsi 50-325-40 mg tablet 1 tab PO Q6H PRN (Reason: haeadace) Qty: 20 0RF ondansetron 4 mg tablet,disintegrating 4 mg PO Q6-8H PRN (Reason: nausea and vomiting) Qty: 7 0RF Referrals: Bhavana Morrow MD [Primary Care Provider] - 3 days Interventions: ED Discharge Assessment Last Done: 07/04/24 10:17 Discharge Date/Time: 07/04/24 10:19 Print Language: Tajik
[2024-07-04 09:12] LABS: Anion Gap 13 (12-20); Blood Urea Nitrogen 7 mg/dL (9-16); Calcium 9.5 mg/dL (8.4-10.2); Carbon Dioxide 23 mmol/L (22-29); Chloride 105 mmol/L (96-108); Creatinine Clr Calc Pharmacy 108.2; Estimated Glomerular Filt Rate > 60; Glucose Random 115 mg/dL (60-115); Potassium 3.6 mmol/L (3.3-5.1); Sodium 137 mmol/L (135-145)
[2024-07-04 09:25] LABS: HCG Quantitative < 2 mIU/mL
[2024-07-04 10:17] VITALS: BP 98/49; PULSE 70; RESP 14; TEMP -17.7; TEMP 0; O2SAT 98
== END 2024-07-04 10:19 | disposition home or self-care (01) ==
PROVIDERS: Physician Assistant; Emergency Provider Emergency Medicine; PCP Internal Medicine
DX: G43.909 Migraine, unspecified, not intractable, without status migrainosus (principal); R11.2 Nausea with vomiting, unspecified; H53.149 Visual discomfort, unspecified; J45.909 Unspecified asthma, uncomplicated; H53.143 Visual discomfort, bilateral; F12.90 Cannabis use, unspecified, uncomplicated; Z79.899 Other long term (current) drug therapy
CPT/HCPCS: 36415; 80048; 84702; 85025; 96374; 96375; 99284; J1200; J1885; J2765

== ENCOUNTER 2024-07-17 18:16 | Emergency (ER) | payer OTHER, SELFPAY ==
--- NOTE | ~2024-07-17 | US_ITS ---
EXAMINATION: US OBSTETRICAL ULTRASOUND CLINICAL INFORMATION: , abdominal cramping. COMPARISON: OB ultrasound 08/09/2020. TECHNIQUE: Transabdominal and endovaginal grayscale, color Doppler ultrasonography. FINDINGS: The uterus is present and anteverted configuration and measures 8.9 cm x 4.6 cm x 6.4 cm. The cervical os is closed and cervical length measures approximately 2.5 cm. Endometrial echo complex measures 18 mm in maximum width. At least 2 discrete anechoic foci each measuring approximately 2 mm in maximum dimension noted in the region of the endometrial fundus. No myometrial lesions identified. The right ovary measures 4.1 x 2.37 x 1.7 cm. The left ovary measures 2.5 cm x 1.17 x 1.5 cm. A 1.1 x 1.2 cm x 1.3 cm ovoid anechoic focus is present within the right ovary and may represent a normal, functional cyst. A trace quantity of anechoic free intraperitoneal fluid is present. The ovaries demonstrate grossly normal color Doppler flow. US/US OB pelvic and transvaginal IMPRESSION: *No intrauterine gestation identified. Two cystic regions, each measuring 2 mm diameter, are identified within the endometrium are too small to specifically characterize. *Normal appearance of the ovaries. *Trace, physiologic free intraperitoneal fluid. *As clinically indicated, recommend maintenance of ectopic precautions. Electronically signed by: Jacek Sidhu MD 07/17/2024 11:48 PM [facility]
[2024-07-17 18:43] VITALS: BP 149/81; PULSE 85; RESP 20; TEMP 36.7; O2SAT 100; BMI 30.2
--- NOTE | 2024-07-17 18:45 | ED_ITS ---
HPI - General Adult General Chief complaint: Abdominal Pain Stated complaint: +preg test/cramping Related Data Previous Rx's ?Medication ?Instructions ?Recorded ibuprofen 600 mg tablet 600 mg PO Q8H PRN pain #30 tabs 08/10/20 acetaminophen 500 mg tablet 1,000 mg (2 x 500 mg) PO QID PRN 12/01/20 (Tylenol Extra Strength) fever or pain #14 tabs naproxen 500 mg tablet 500 mg PO BID PRN pain #30 tabs 08/11/21 cyclobenzaprine 5 mg tablet 5 mg PO TID PRN neck pain 7 days 05/16/22 #21 tabs diazepam 2 mg tablet (Valium) 2 mg PO TID PRN muscle spasm #7 05/22/22 tabs oxycodone 5 mg tablet 5 mg PO TID PRN pain #6 tabs 05/22/22 acetaminophen 500 mg tablet 500 mg PO Q6H PRN fever or pain 06/13/22 (Tylenol Extra Strength) #14 tabs cyclobenzaprine 5 mg tablet 5 mg PO Q8H PRN pain (scale score 06/13/22 7-10) 5 days #14 tabs lidocaine 5 % topical patch 1 patch topical DAILY PRN pain #30 06/13/22 (Lidoderm) ea naproxen 500 mg tablet 500 mg PO BID PRN pain 10 days #20 06/13/22 tabs prednisone 20 mg tablet 40 mg (2 x 20 mg) PO DAILY 5 days 06/13/22 #10 tabs gjyztkgpak-esaetqfrpegdr-gikvehie 2 cap PO Q4-6H PRN migraine 09/17/22 50 mg-300 mg-40 mg capsule headache #14 caps (Fioricet) ondansetron 4 mg disintegrating 4 mg PO Q8H PRN nausea and 09/17/22 tablet vomiting #20 tabs cephalexin 500 mg capsule 500 mg PO QID 7 days #28 caps 01/17/23 rlexuclnsd-atpcxxvtoxncy-frswkcfr 1 tab PO Q6H PRN haeadace #20 tabs 11/23/23 50 mg-325 mg-40 mg tablet ondansetron 4 mg disintegrating 4 mg PO Q6-8H PRN nausea and 11/23/23 tablet vomiting #7 tabs sumatriptan succinate 50 mg tablet 50 mg PO Q2H PRN migraine headache 11/23/23 (Imitrex) #10 tabs Allergies Allergy/AdvReac Type Severity Reaction Status Date / Time No Known Allergies Allergy Verified 07/17/24 18:45 [facility] Past Medical History Medical History Asthma No known health problems Surgical History History of salpingectomy History of tonsillectomy Social History Social History Unable to assess alcohol history related to: Unknown Alcohol intake: never Substance Use Type: Marijuana Advance Directives: No Advance Directives Information Provided: No Sexual orientation: Straight/Heterosexual Gender identity: Female Physical Exam ED Vital Signs: Vital Signs - 24 hr 07/17/24 18:43 Temperature 98.0 F Pulse Rate 85 Respiratory Rate 20 Blood Pressure 149/81 H Pulse Oximetry 100 Oxygen Delivery Method Room Air BMI result Body Mass Index 30.2 Course Course Course Narrative: This is a Rapid Medical Examination (RME) performed by Levy Brown PA-C in triage. Full HPI, ROS, assessment and treatment plan per primary provider in the Main ED. 34 yo female here for eval of abd cramping x today. reports testing positive for via home test today. admits to pink tinge when on toilet paper after urinating. hx ectopic 2 yrs ago. has not been since. Plan: labs, UA, hcg/ u preg Reevaluation(s) Reevaluation #1: Patient left the emergency department before myself or any of the other clinicians could review or explain physical exam findings, test results, need or lack there of for additional testing, treatment options, or a treatment plan. Medical Decision Making Lab Data 07/17/24 18:56 07/17/24 18:56 Labs: Lab Results 07/17/24 Range/Units 18:56 WBC 11.8 H (4.8-10.8) X10*3/uL RBC 4.50 (4.20-5.50) X10*6/uL Hgb 13.2 (12.0-16.0) g/dl Hct 38.1 (37.0-47.0) % MCV 84.7 (80.0-98.0) fL MCH 29.3 (27.0-33.0) pg MCHC 34.6 (31.0-35.0) g/dl RDW 13.2 (11.0-16.0) % Plt Count 293 (160-400) X10*3/uL MPV 9.9 (9.4-12.3) fL Immature Gran % (Auto) 0.3 (0.0-0.4) % Neut % (Auto) 73.9 H (45-73) % Lymph % (Auto) 19.4 L (20-40) % [place] % (Auto) 5.9 (2-11) % Eos % (Auto) 0.1 (0-4) % Baso % (Auto) 0.4 (0-2) % Lymph # (Auto) 2.3 (1.2-4.9) X10*3/uL [place] # (Auto) 0.7 (0.1-1.2) X10*3/uL Eos # (Auto) 0.0 (0.0-0.4) X10*3/uL Baso # (Auto) 0.1 (0.0-0.2) X10*3/uL Abs Immat Gran (auto) 0.03 (0.00-0.03) X10*3/uL Absolute Neuts (auto) 8.7 H (2.0-8.3) x10*3/uL Absolute Nucleated RBC 0.000 (0.0-0.012) X10*3/uL Nucleated RBC % (auto) 0.0 (0.0-0.2) /100WBC Sodium 137 (135-145) mmol/L Potassium 3.9 (3.3-5.1) mmol/L Chloride 103 (96-108) mmol/L Carbon Dioxide 23 (22-29) mmol/L Anion Gap 15 (12-20) BUN 13 (9-16) mg/dL Creatinine 0.74 (0.5-1.4) mg/dL Estim Creat Clear Calc 102.3 Estimated GFR > 60 Random Glucose 86 (60-115) mg/dL Calcium 9.8 (8.4-10.2) mg/dL Magnesium 2.1 (1.6-2.6) mg/dL Total Bilirubin 0.5 (0.0-1.0) mg/dL AST 21 (5-31) U/L ALT 15 (0-31) U/L Alkaline Phosphatase 55 (39-117) U/L Total Protein 7.6 (6.5-8.0) g/dL Albumin 4.6 (3.5-5.0) g/dL Lipase 20 (8-78) U/L Beta HCG, Quant 556 mIU/mL Urine Color Yellow Urine Appearance Clear Urine pH 5.5 (5.0-9.0) Ur Specific [place] 1.025 (1.005-1.025) Urine Protein Trace (Neg-Trace) mg/dL Urine Glucose (UA) Negative (Negative) mg/dL Urine Ketones 15 (Negative) mg/dL Urine Blood Negative (Negative) Urine Nitrite Negative (Negative) Ur Leukocyte Esterase Trace H (Negative) Urine RBC 0-2 (0-2) /HPF Urine WBC 0-5 (0-5) /HPF Ur Squamous Epith Cells 6-10 (0-2) /HPF Urine Bacteria 1+ (None Seen) Hyaline Casts 3-5 (0-2) /LPF Urine Test POSITIVE H (NEGATIVE) Discharge Plan Discharge Clinical Impression: Positive test Patient Disposition: Left W/O Completing Treatment Prescriptions: No Action ibuprofen 600 mg tablet 600 mg PO Q8H PRN (Reason: pain) Qty: 30 0RF acetaminophen [Tylenol Extra Strength] 500 mg tablet 1,000 mg PO QID PRN (Reason: fever or pain) Qty: 14 0RF naproxen 500 mg tablet 500 mg PO BID PRN (Reason: pain) Qty: 30 0RF nmkarlvucm-ocokxyboyuwtc-dxku [Fioricet] 50-300-40 mg capsule 2 cap PO Q4-6H PRN (Reason: migraine headache) Qty: 14 0RF Rx Instructions: do not exceed 6 caps per day. May substitute for medication equivalent excepted by patient's insurance. ondansetron 4 mg tablet,disintegrating 4 mg PO Q8H PRN (Reason: nausea and vomiting) Qty: 20 0RF cyclobenzaprine 5 mg tablet 5 mg PO TID PRN (Reason: neck pain) 7 Days Qty: 21 0RF oxycodone 5 mg tablet 5 mg PO TID PRN (Reason: pain) Qty: 6 0RF Rx Instructions: Partial Fill upon patient request. diazepam [Valium] 2 mg tablet 2 mg PO TID PRN (Reason: muscle spasm) Qty: 7 0RF prednisone 20 mg tablet 40 mg PO DAILY 5 Days Qty: 10 0RF acetaminophen [Tylenol Extra Strength] 500 mg tablet 500 mg PO Q6H PRN (Reason: fever or pain) Qty: 14 0RF lidocaine [Lidoderm] 5 % adhesive patch,medicated 1 patch topical DAILY MDD remove after 12 hours PRN (Reason: pain) Qty: 30 0RF Rx Instructions: leave on most painful area for up to 12 hrs naproxen 500 mg tablet 500 mg PO BID PRN (Reason: pain) 10 Days Qty: 20 0RF cyclobenzaprine 5 mg tablet 5 mg PO Q8H PRN (Reason: pain (scale score 7-10)) 5 Days Qty: 14 0RF cephalexin 500 mg capsule 500 mg PO QID 7 Days Qty: 28 0RF sumatriptan succinate [Imitrex] 50 mg tablet 50 mg PO Q2H PRN (Reason: migraine headache) Qty: 10 0RF Rx Instructions: do not exceed 2 doses per 24 hrs nxqbouayli-dfqizgnmpzkzy-trys 50-325-40 mg tablet 1 tab PO Q6H PRN (Reason: haeadace) Qty: 20 0RF ondansetron 4 mg tablet,disintegrating 4 mg PO Q6-8H PRN (Reason: nausea and vomiting) Qty: 7 0RF Discharge Date/Time: 07/17/24 22:27
[2024-07-17 19:01] LABS: MANUAL DIFF FLAG NO
[2024-07-17 19:03] LABS: Appearance Urine Clear; Basophils Absolute Auto 0.1 X10*3/uL (0.0-0.2); Basophils Percent Auto 0.4 % (0-2); Color Urine Yellow; Eosinophils Percent Auto 0.1 % (0-4); Glucose Urine UA Negative (Negative); Hematocrit 38.1 % (37.0-47.0); Hemoglobin 13.2 g/dl (12.0-16.0); Imm Gran Abs Auto 0.03 X10*3/uL (0.00-0.03); Imm Gran Pct Auto 0.3 % (0.0-0.4); Leukocyte Esterase Urine Trace (Negative); Lymphocytes Absolute Auto 2.3 X10*3/uL (1.2-4.9); Lymphocytes Percent Auto 19.4 % (20-40); Mean Corpuscular HGB Conc 34.6 g/dl (31.0-35.0); Mean Corpuscular Hemoglobin 29.3 pg (27.0-33.0); Mean Corpuscular Volume 84.7 fL (80.0-98.0); Mean Platelet Volume 9.9 fL (9.4-12.3); Monocytes Absolute Auto 0.7 X10*3/uL (0.1-1.2); Monocytes Percent Auto 5.9 % (2-11); Neutrophils Absolute Auto 8.7 x10*3/uL (2.0-8.3); Neutrophils Percent Auto 73.9 % (45-73); Nitrite Urine Negative (Negative); PH 5.5 (5.0-9.0); Platelet Count 293 X10*3/uL (160-400); Red Cell Distribution Width 13.2 % (11.0-16.0); Specific Gravity - Urine 1.025 (1.005-1.025); UMIC TRIGGER UACC YES; Urine Blood Negative (Negative); Urine Ketones 15 mg/dL (Negative); Urine Protein Trace mg/dL (Neg-Trace); White Blood Count 11.8 X10*3/uL (4.8-10.8)
[2024-07-17 19:06] LABS: UPreg QC Valid YES
[2024-07-17 19:12] LABS: Bacteria Urine 1+ (None Seen); RBC Urine 0-2 /HPF (0-2); WBC Urine 0-5 /HPF (0-5)
[2024-07-17 19:25] LABS: Alanine Aminotransferase 15 U/L (0-31); Albumin Level 4.6 g/dL (3.5-5.0); Alkaline Phosphatase 55 U/L (39-117); Anion Gap 15 (12-20); Aspartate Amino Transferase 21 U/L (5-31); Bilirubin Total 0.5 mg/dL (0.0-1.0); Blood Urea Nitrogen 13 mg/dL (9-16); Calcium 9.8 mg/dL (8.4-10.2); Carbon Dioxide 23 mmol/L (22-29); Chloride 103 mmol/L (96-108); Creatinine Clr Calc Pharmacy 102.3; Estimated Glomerular Filt Rate > 60; Glucose Random 86 mg/dL (60-115); HCG Quantitative 556 mIU/mL; Lipase 20 U/L (8-78); Magnesium 2.1 mg/dL (1.6-2.6); Potassium 3.9 mmol/L (3.3-5.1); Sodium 137 mmol/L (135-145); Total Protein 7.6 g/dL (6.5-8.0)
[2024-07-17 20:28] LABS: Urine Pregnancy POSITIVE (NEGATIVE)
== END 2024-07-17 22:27 | disposition left against medical advice (07) ==
PROVIDERS: Physician Assistant Medical; Emergency Provider Emergency Medicine Emergency Medical Services; PCP Internal Medicine
DX: O26.891 Other specified pregnancy related conditions, first trimester (principal); R10.9 Unspecified abdominal pain; Z3A.00 Weeks of gestation of pregnancy not specified
CPT/HCPCS: 36415; 76801; 76817; 80053; 81001; 81003; 81025; 83690; 83735; 84702; 85025; 99282; 99284